=== PATIENT | male | born 1950 | race Caucasian/White ===

== ENCOUNTER → 2017-05-04 16:44 | Outpatient (CLI) | payer OTHER, SELFPAY ==
--- NOTE | 2017-05-04 16:48 | CT_ITS ---
STUDY: LOW DOSE CT LUNG CANCER SCREENING REASON FOR EXAM: Male, 67 years old. 30 pack-year smoking history. RADIATION DOSAGE (If Supplied By Facility): CTDIvol = ( 2.55 ) mGy, DLP = ( 91.56 ) mGycm TECHNIQUE: No contrast was administered. Low dose technique was utilized (average mAS-38 and kVp 120). 1.25 mm axial source images with a slice interval of 1.25-mm were reconstructed in lung windows. 2.5 mm axial source images with a slice interval of 2.5-mm were reconstructed in lung windows. 5.0 mm axial source images with a slice interval of 5.0-mm were reconstructed in soft tissue windows. Nodule measured using lung windows on PACS and/or independent workstation with automated measurement of minimum and maximum diameter. Nodule measurement reported as average diameter rounded to the nearest whole number. Growth is defined as an increase ins size of greater than 1.5 mm. COMPARISON: None. NODULES: Nodule #: 1 Density: Solid Lung location: Left upper lobe: 2.7 cm from pleura Location in series: Series Number: 1002 Image: 31 Size - D1 x D2 mm: 6 x 4 mm: 5 mm average diameter Margin: Spiculated Shape: Star shaped Calcification: No Fat: No Temporal comparison: None Nodule #: 2 Density: Solid Lung location: Right middle lobe: 0.9 cm from pleura Location in series: Series Number: [id number] Image: 154 Size - D1 x D2 mm: 4 x 3 mm: 4 mm average diameter Margin: Smooth Shape: Oval Calcification: No Fat: No Temporal comparison: None Total lung nodules (excluding granulomas): 2 Emphysema: There is diffuse emphysematous changes throughout the lungs. Endobronchial lesion: None Aorta: There is atherosclerotic changes of the thoracic aorta without aneurysm. Coronary arteries: There are coronary artery calcifications. Heart: The heart is normal in size. Pulmonary artery: Normal in size Mediastinal nodes: There is diffuse nonspecific subcentimeter mediastinal lymphadenopathy. Other chest and abdominal findings: There are degenerative changes of the thoracic spine. CT/Low Dose CT Lung Screening IMPRESSION: Lung-RADS category 3 - Continue screening with LDCT in 6 months. IMPORTANT NOTES FOR USE: ACR Lung-RADS Version 1.0 Assessment Categories Release Date: July 23, 2013 Category: Coded 0-4 bases on nodule(s) with highest degree of suspicion. Negative screen is defined as categories 1 and 2; a positive screen is defined as categories 3 and 4. Category 3 and 4A nodules that are unchanged on interval CT should be coded as category 2, and individuals returned to screening in 12 months. Category 4X: Category 3 or 4 nodules with additional imaging findings that increase the suspicion of lung cancer, such as spiculation, GGN that doubles in size in 1 year, enlarged lymph notes, etc. Category Modifiers: S (significant finding unrelated to lung cancer) and C (prior history of treated lung cancer) may be added to the 0-4 Lung-RADS Electronically Signed: Dez Knight DO at 17:36 EST Tel [phone], Service support ,
== END ==
PROVIDERS: Family Provider Family Medicine; PCP Family Medicine; Visit Provider Family Medicine
DX: Z12.2 Encounter for screening for malignant neoplasm of respiratory organs (principal)
CPT/HCPCS: G0297

== ENCOUNTER → 2017-08-27 09:57 | Outpatient (CLI) | payer OTHER, SELFPAY ==
[2017-08-27 11:29] LABS: AST(SGOT) 15 U/L (15-37); Alanine Aminotransfer ALT/SGPT 21 U/L (16-61); Albumin, Serum 3.6 g/dL (3.2-5.0); Alkaline Phosphatase 50 U/L (45-117); Bilirubin, Direct 0.15 mg/dL (0.00-0.30); Cholesterol 163 mg/dL (200); Globulin 3.7 g/dL (2.2-4.2); High Density Lipoprotein 69 mg/dL; Protein, Total 7.3 g/dL (6.4-8.2); Triglycerides 41 mg/dL; Very Low Density Lipoprotein 8 mg/dL (5-40)
== END ==
PROVIDERS: Family Provider Family Medicine; PCP Family Medicine; Visit Provider Internal Medicine Cardiovascular Disease
DX: E78.5 Hyperlipidemia, unspecified (principal)
CPT/HCPCS: 36415; 80061; 80076

== ENCOUNTER → 2017-10-31 14:53 | Outpatient (CLI) | payer OTHER, SELFPAY ==
[2017-10-31 16:12] LABS: Anion Gap 11 (5-15); BUN 14 mg/dL (7-18); BUN/Creat Ratio 14.9 RATIO (10-20); Calcium,Total 8.9 mg/dL (8.5-10.1); Chloride 103 mmol/L (98-107); Creatinine, Serum 0.94 mg/dL (0.70-1.30); EST Glomerular Filtration Rate 85 mL/min (>60); Est Glom Filt Rate - Afr Amer 103 mL/min (>60); Glucose 88 mg/dL (74-106); Potassium 3.9 mmol/L (3.5-5.1); Sodium Level 139 mmol/L (136-145)
== END ==
PROVIDERS: Family Provider Family Medicine; PCP Family Medicine; Visit Provider Family Medicine
DX: R91.1 Solitary pulmonary nodule (principal)
CPT/HCPCS: 36415; 80048

== ENCOUNTER → 2017-11-17 07:44 | Outpatient (CLI) | payer OTHER, SELFPAY | PROVIDERS: Family Provider Family Medicine; PCP Family Medicine; Visit Provider Family Medicine | DX: R91.1 Solitary pulmonary nodule (principal) | CPT/HCPCS: 71260; Q9967 ==

== ENCOUNTER → 2018-04-10 07:48 | Outpatient (CLI) | payer OTHER, SELFPAY ==
[2017-09-07 14:49] VITALS: BMI 25.6
[2018-04-10 09:59] LABS: AST(SGOT) 17 U/L (15-37); Alanine Aminotransfer ALT/SGPT 19 U/L (16-61); Albumin, Serum 3.6 g/dL (3.2-5.0); Alkaline Phosphatase 60 U/L (45-117); Bilirubin, Direct 0.12 mg/dL (0.00-0.30); Cholesterol 185 mg/dL (200); High Density Lipoprotein 56 mg/dL; Protein, Total 7.6 g/dL (6.4-8.2); Triglycerides 56 mg/dL; Very Low Density Lipoprotein 11 mg/dL (5-40)
== END ==
PROVIDERS: Family Provider Family Medicine; PCP Family Medicine; Referring Provider Internal Medicine Cardiovascular Disease; Visit Provider Internal Medicine Cardiovascular Disease
DX: E78.5 Hyperlipidemia, unspecified (principal)
CPT/HCPCS: 36415; 80061; 80076

== ENCOUNTER 2018-05-02 08:30 | Outpatient (RCR) | payer OTHER, SELFPAY ==
[2018-04-13 09:23] VITALS: BMI 26.0
--- NOTE | 2018-04-19 11:05 | HP.PTEVAL_ITS ---
Patient's Visit Information BESSIE CAMACHO is a 68 year old M referred to Physical Therapy by BUD Dubois with a diagnosis of LUMBAR RADICULOPATHY AND DDD. Date of Evaluation: 04/19/18 Physical Therapist: Elida Aranda PT, Cert MDT - Visit Plan Frequency: 2-3x /Week Duration: 2-4 Weeks Plan: US TO LOW BACK AND/OR HIP REGIONS. MANUAL THERAPY. POSTURE CORRECTION/STRENGTHENING, INSTRUCTION IN APPROPRIATE BODY MECHANICS AND ACTIVITY MODIFICATIONS. DLS STARTING WITH A NEUTRAL SPINE PROGRESSING ROM TOLERATED. ERA LE ROM, STRETCHING AND STRENGTHENING. HEP INSTRUCTION. PATIENT WAS SOMEWHAT RELUCTANT TO TRY PT BUT AGREED TO SCHEDULE SOME VISITS. 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 WAS WORKING ABOUT 50 HOURS A WEEK BUT STOPPED IN THE MIDDLE OF FEB 2018. TENTATIVE RETURN TO WORK DATE IS May 2017. Disability: NO. Present symptoms: LOW BACK AND ERA HIP PAIN. NO NUMBNESS OR TINGLING. Present since: February 2018. Pain Scale: WORST 6/10, LEAST 1/10. Currently: 10 - IMPROVING. Commenced as a result of: NO APPARENT REASON. Symptoms at onset: RIGHT HIPS. Worse: WALKING. Better: SITTING AND LYING DOWN. WALKING WITH PELVIS FORWARD. LEANING BACKWARDS IN SITTING. Disturbed sleep: NO. Previous history/Previous treatment: UNREMARKABLE. Coughing/sneezing/straining: POSITIVE. Gait: EASIER TO WALK WITH PELVIS FORWARD. DISTANCE LIMITED. Difficulty initiating urinatin: NO. Accidents: NO. Unexplained weight loss: NO. Imaging: RECENT LUMBAR X-RARYS [facility] -DEGENERATIVE DISCS. NO HIP X-RAYS THAT HE IS AWARE OF. PMH: COPD, AFIB, EMPHASEMA, HEART STENT. DONATED KIDNEY. NO PACEMAKER. HISTORY OF NECK PROBLEMS. PLOF (PRIOR LEVEL OF FUNCTION): UNLIMITED PER PATIENT REPORT. OTHER: PATIENT REPORTS THE [facility] TOLD HIM TO TRY PT FOR TWO WEEKS AND IF IT DOESN'T GET BETTER TO COME BACK BUT PATIENT REPORTS HE KNOWS HE WON'T - HE WILL JUST LIVE WITH IT. PATIENT REPORTS HE WAS WALKING AROUND FOR 5-10 MINUTES AT A [place] WITH A DIFFEERENT PAIR OF BOOTS AND RIGHT HIP PAIN STARTED. SAME THING AT [employer] A WEEK LATER WITH DIFFERENT SHOES AND SAME PROBLEM. WENT TO [employer] IN [place] - A LOT OF WALKING - HAD TO BE TAKEN OUT IN CART. THEN WENT TO A [facility] - SAME THING - HAD TO BE TAKEN OUT IN A CART. A FEW WEEKS AGO IN [place] GOT WORSE. HAD SOMEONE STAND ON BACK - NOT MUCH EFFECT. IN [place] TWO WEEKS AGO WAS THE WORST. LIMITED WALKING SINCE THEN SEEMS TO HAVE HELPED. TRYING TO SIT BETTER TOO. PATIENT REPORTS DR. STEVEN AND THE [facility] TOLD HIM HIS HIPS ARE FINE. ALSO TRIED GABAPENTIN WITH NE. LOWER BACK STARTED HURTING MORE RECENTLY. - Objective Sitting/Standing Posture: POOR. FORWARD HEAD AND ROUNDED SHOULDERS. Lordosis: REDUCED. Lateral shift: NO. Relevant shift: N/A. Active Correction of posture: BETTER. Other Observations: INDEP GAIT INTO PT WITHOUT ANY ASSISTIVE DEVICES OR LOSS OF BALANCE. INDEP TRANSFERS. Motor deficit: ERA LE'S 5/5 WITH MMT'ING. Sensory deficit: ERA LE LIGHT TOUCH SENSATION APPEARS INTACT AND SYMMETRICAL. FEET NT. ROM deficit: ERA LE'S WFL. Reflexes: UNABLE TO ELICIT ERA LE DTR'S. Dural Signs: NEGATIVE ERA LE'S. Lumbar mvmt loss: flex - NIL. ext - MOD. R SG - CARIDAD. L SG - CARIDAD. PATIENT C/O INCREASED RIGHT HIP PAIN WITH RIGHT SG TESTING. Core strength: POOR. Palpation: NO ACUTE TENDERNESS WITH PALPATION OF THE LUMBOSACRAL REGIONS OR PELVIC/BUTTOCK AREAS EXCEPT RIGHT GREATER TROCH REGION IS TENDER WITH DEEP PALPATION. PATIENT TOLERATED LUMBAR SUPPORT IN SITTING IN CLINIC FAIR TODAY. OTHER: DECREASE C/O PAIN WITH LUMBAR EXTENSION IN STANDING AND GRADE TWO LUMBAR EXTENSION MOBILIZATION. TREATMENT: US TO ERA LUMBAR REGION X 8 MIN AT 1.5 W/CM2 WITH PATIENT PRONE AND THER ACT (SEE BELOW). PATIENT REPORTED 0/10 PAIN UPON DEPARTURE. - Goals Goal 1:: DECREASE C/O LOW BACK AND ERA HIP PAIN Goal Time Frame: 2-4 Weeks Goal 2:: IMPROVE STANDING, WALKING, LIFTING, SOCIAL LIFE, TRAVEL AND EMPLOYMENT/HOMEMAKING FUNCTION. Goal Time Frame: 2-4 Weeks Goal 3:: INSTRUCT IN PROPHYLAXIS Goal Time Frame: 2-4 Weeks - Rehabilitation Potential Rehabilitation Potential: Fair - Anticipated Interventions Patient/Client Instruction: Educate patient on: Condition, Plan of Care, Risk Factors, Benefits of Fitness Program For the Purpose of:: To improve self management Therapeutic Exercise to Include: Strength training, Body mechanics, Postural training, Dynamic Lumbar Stabilization, Viri Exercises Comment: CONSIDER VIRI EX'S APPROPRIATE. For the Purpose of:: To decrease pain, To increase ROM, To improve muscle performance and motor function, To increase tolerance to activity/condition/position, To improve ability of physical actions for home/community/work/leisure Manual Therapy Techniques to Include: Mobilization For the Purpose of:: To decrease pain, To increase ROM Cryotherapy (ice pack, ice massage): Yes Thermo therapy (hot pack): Yes Ultrasound (thermal/non thermal): Yes For the Purpose of:: To decrease pain, To decrease swelling/inflammation, To increase ROM, To improve nutrient delivery to tissue Thank you for the opportunity to evaluate your patient. For Medicare and Medicare HMO plans, please review the plan of care and approve it. It will need to be FAXED BACK to us at [phone] for Medicare purposes. For Medicare only, by signing this I certify the plan of care. Please let me know if there are questions or concerns regarding this plan of care. Physician Signature: Date:
--- NOTE | 2018-06-20 13:44 | HP.PT.NRP ---
HP - Discharge Summary (1) - Patient Information BESSIE CAMACHO was seen in my office for initial evaluation on 04/19/18. The following Plan of Care was established for this patient: Initial Frequency: 2-3x /Week Initial Duration: 2-4 Weeks - Anticipated Interventions Patient/Client Instruction: Educate patient on: Condition, Plan of Care, Risk Factors, Benefits of Fitness Program For the Purpose of:: To improve self management Therapeutic Exercise to Include: Strength training, Body mechanics, Postural training, Dynamic Lumbar Stabilization, Jessica Exercises For the Purpose of:: To decrease pain, To increase ROM, To improve muscle performance and motor function, To increase tolerance to activity/condition/position, To improve ability of physical actions for home/community/work/leisure Manual Therapy Techniques to Include: Mobilization For the Purpose of:: To decrease pain, To increase ROM Cryotherapy (ice pack, ice massage): Yes Thermo therapy (hot pack): Yes Ultrasound (thermal/non thermal): Yes For the Purpose of:: To decrease pain, To decrease swelling/inflammation, To increase ROM, To improve nutrient delivery to tissue This patient was last seen in our office 05/02/18. Pertinent comments regarding their Physical therapy will appear below: This patient has not returned to Physical Therapy and is appropriate to return to MD for further follow-up as needed. At this point I will be discontinuing this patient from physical therapy. I would be happy to see this patient again in the future if found appropriate by the physician. Thank you! Eldia Aranda, PT, Cert MDT
--- OUTSIDE RECORDS SUMMARY | 2018-06-21 03:07 | XMS RPT_ITS ---
:1950 Author Organization OHIP Support Name Relationship Address Phone ADVDR Unavailable [address] + [place] [address] TOPOVSKI, AGUILAR Unavailable [address] + [place] [address] ADVDR Unavailable [address] [facility] + [place] [address] TOPOVSKI, AGUILAR Unavailable [address] + [place] [address] ADVDR Unavailable [address] [facility] + [place] [address] TOPOVSKI, AGUILAR Unavailable [address] + [place] [address] ADVDR Unavailable [address] + [place] [address] TOPOVSKI, AGUILAR Unavailable [address] + [place] [address] ADVDR Unavailable [address] [facility] + [place] [address] TOPOVSKI, AGUILAR Unavailable [address] + [place] [address] ADVDR Unavailable [address] + [place] [address] TOPOVSKI, AGUILAR Unavailable [address] + [place] [address] ADVDR Unavailable [address] + [place] [address] TOPOVSKI, AGUILAR Unavailable [address] + [place] [address] ADVDR Unavailable [address] [facility] + [place] [address] TOPOVSKI, AGUILAR Unavailable [address] + [place] [address] Un[address] [facility] + [place] [address] AGUILAR PADILLA Unavailable [address] + [place] [address] Care Team Providers Name Role Phone TracieCarmen faulknerl Attending Unavailable Tracie, Chu Referring Unavailable Raygoza, Oneil Primary Care Unavailable Pauly Veliz Attending Unavailable Pauly Veliz Referring Unavailable Raygoza, Oneil Primary Care Unavailable Raygoza, Oneil Attending Unavailable Raygoza, Oneil Referring Unavailable Raygoza, Oneil Primary Care Unavailable Sintia Nolan Attending Unavailable Tracie, Chu Attending Unavailable Tracie, Chu Referring Unavailable Raygoza, Oneil Primary Care Unavailable Tracie, Chu Attending Unavailable Raygoza, Oneil Referring Unavailable Oly Bond Attending Unavailable Raygoza, Oneil Referring Unavailable Raygoza, Oneil Primary Care Unavailable Raygoza, Oneil Attending Unavailable Raygoza, Oneil Primary Care Unavailable Raygoza, Oneil Attending Unavailable Raygoza, Oneil Referring Unavailable Raygoza, Oneil Primary Care Unavailable PROBLEMS PROBLEMS DATE TYPE CONDITION / CODE ATTENDING STATUS SOURCE Unknown I48.91 - Unspecified [place] Active [facility] atrial fibrillation / Community I48.91(ICD-10) Hospital Repository Unknown I10 - Essential (primary) [place], [place] Active [facility] hypertension / Community I10(ICD-10) Hospital Repository Unknown E78.00 - Pure [place], Chu Active [place] 9 hypercholesterolemia, Community unspecified / Hospital E78.00(ICD-10) Repository Unknown I25.10 - Atherosclerotic [place], [place] Active [facility] heart disease of [place] Community coronary artery without Hospital angina pectoris / Repository I25.10(ICD-10) Unknown R91.1 - Solitary RaygozaOneil herring Active [facility] pulmonary nodule / Community R91.1(ICD-10) Hospital Repository Unknown E78.0 - Pure Bond, Active [facility] hypercholesterolemia / Oly Ortega Community E78.0(ICD-10) Hospital Repository Unknown Z12.2 - Encounter for Oneil Raygoza Active [place] 8 screening for malignant Community neoplasm of respiratory Hospital organs / Z12.2(ICD-10) Repository PROCEDURES PROCEDURES No Procedure Records FoundRESULTS RESULTS CARDIOLOGY VISIT Observed: 2018 Status: F Source: [place] REPORT 9:48 AM [facility] REPOSITORY [facility] [address] [place] [address] OFFICE VISIT Date of Service: 04/13/18 MR#: [id number] Acct: [id number] Name: BESSIE CAMACHO Rep #: [id number] : 1950 Provider: Chu Hodges MD Age/Sex: 68/M Location: [facility] Status: Signed HPI HPI Chief Complaint: Follow up Details: BESSIE CAMACHO, is a 68 M who presents to the office today for a cardiovascular follow-up. He is a history of solitary kidney, coronary artery disease with angioplasty and stenting of his LAD in 2012, atrial fibrillation with an ablation 2014. From a cardiac standpoint, patient is doing well. He does not have any chest discomfort/heaviness/tightness. His exercise tolerance is stable for his age. He does not have any worsening symptoms of shortness of breath. He denies any PND. He does not have any orthopnea. He does not have any symptoms of congestive heart failure. He does not have any palpitations that he is aware of. He does not have any lightheadedness or dizziness. He does not have any near-syncope or syncope. He does not have any lower extremity edema. He does not have any symptoms of claudication. His physical exam today demonstrates clear lung cobian irregular regular heart rate and no pedal edema. Intake Vital Signs04/13/18 Height 6 ft 04/13/18 Weight: 192 lb 04/13/18 Body Mass Index (BMI) 26.0 04/13/18 Blood Pressure 108/58 L 04/13/18 Blood Pressure Location Lt brachial Intake Visit Reasons: 6 M Refractory Specialist Required: No Accompanied by: none Is patient in pain?: No Allergies Penicillins Allergy (Verified 04/13/18 09:23) Rash [place]-Uma-Qan Reductase Inhibitor Allergy (Verified 04/13/18 09:23) Unknown Medications Cinnamon 1 tab PO DAILY 10/21/14 [History Confirmed 04/13/18] Nitroglycerin [Nitrostat] 0.4 mg SUBLINGUAL Q5M PRN 10/21/14 [History Confirmed 04/13/18] turmeric root extract 500 mg capsule 500 mg PO QDAY 09/07/17 [History Confirmed 04/13/18] lisinopril 10 mg tablet 10 mg PO QDAY #90 tab 10/03/17 [Rx Confirmed 04/13/18] rivaroxaban 20 mg tablet 20 mg PO DAILY #90 tab 02/09/18 [Rx Confirmed 04/13/18] metoprolol succinate ER 50 mg tablet,extended release 24 hr 50 mg PO DAILY #90 tab 03/22/18 [Rx Confirmed 04/13/18] PFSH Medical History Essential (primary) hypertension (Chronic) Paroxysmal tachycardia (Chronic) HLD (hyperlipidemia) (Chronic) Atherosclerotic heart disease of [place] coronary artery without angina pectoris (Chronic) Surgical History History of nephrectomy (Resolved) Hx of arthroscopic knee surgery (Resolved) Presence of coronary angioplasty implant and graft (Chronic) Family History Father CAD (coronary artery disease) chf Diabetes Myocardial infarction Social History Smoking Status: Current every day smoker ROS Const Const: Negative for fatigue, weakness, night sweats, excessive sweating, frequent falls, headache(s) or daytime sleepiness Eyes Eyes: Negative for loss of peripheral vision, transient loss of vision, blind spots, double vision or blurry vision ENT ENT: Negative for headache(s), dizziness, balance problems, Nosebleed/epistaxis, tongue swelling or lip swelling Cardio Chest Pain: No Palpitations: No Edema: None Muscle aches with walking: None Resp Respiratory: Negative for SOB at rest, SOB orthopnea\SOB lying down, Cough, paroxysmal nocturnal dyspnea or SOB with activity GI GI: Negative nausea, vomiting, heartburn, black,tarry stools or bright, red blood in stools : Negative for hematuria Musc Musc: Negative for balance problems, muscle aches/ myalgia, muscle weakness or joint pain Skin Skin: Negative non-healing lesions, unusual bruising or rash Neuro Neuro: Negative for weakness, frequent falls, headache(s), double vision, dizziness, lightheadedness, orthostatic symptoms, blurry vision or lack of coordination Armando Hematologic/Lymphatic: Negative for easy bruising or easy bleeding Endo Endo: Negative for fatigue, excessive sweating, cold intolerance, heat intolerance, increased thirst/drinking or hair loss Psych Psych: Negative for anxiety or depression Allergy Allergy/Immunology: Negative for throat swelling, Negative for tongue swelling, Negative for hives, Negative for rash, Negative for lip swelling Cardiology Exam Const Appearance: cooperative, healthy appearing, well developed, well groomed and no acute distress Nutritional Appearance: well nourished and average body habitus Orientation: alert, awake and oriented x3 Head Head: normal to inspection, normocephalic and atraumatic Ears: hearing grossly normal bilaterally and external ears normal Nose: external nose normal, nasal mucous membranes and turbinates normal, nares normal, septum normal, no nasal discharge Face and Sinus: face symmetric Mouth: oral mucosae normal, tongue normal, oropharynx normal and moist mucous membranes Teeth and gingiva: dentition normal Throat: posterior oropharynx normal, tonsils normal and uvula midline Eyes General: appearance normal, both eyes and all related structures Eyelids: eyelids normal Conjunctivae: conjunctivae normal Pupils: PERRL, normal by confrontation and accommodation normal EOM: EOM intact bilaterally Neck Neck: normal visual inspection, trachea midline and no JVD JVD: +5 Carotids: normal carotid upstroke and bounding pulses Chest Chest inspection: normal inspection of the chest, symmetric chest movement and normal respiratory effort Auscultation: Bilateral: Clear to Auscultation Cardio Palpation: normal PMI Rhythm: irregular rhythm Heart sounds: S1 normal and S2 normal GI GI: normal to inspection, soft, no hepatosplenomegaly and bowel sounds present Neuro General: alert, awake, oriented x3, no focal sensory deficit, gait normal and moves all extremities Skin Skin: no rashes or lesions noted Extremities Pulses: Normal: Right Femoral Pulse, Left Femoral Pulse, Right Dorsalis Pedis Pulse, Left Dorsalis Pedis Pulse, Right Posterior Tibial Pulse, Left Posterior Tibial Pulse, Right Radial Pulse, Left Radial Pulse Lower Extremity Edema: None: Bilateral Musculoskel Musculoskeletal: No joint tenderness Psych Psychological: normal affect Assessment AND Plan 1. Atrial fibrillation I48.91 Plan He does have a history of atrial fibrillation which is unbeknownst to him the ventricular response rate remains controlled. He is on the rivaroxaban which be continued as well as the long-acting metoprolol. His last echocardiogram in 2014 demonstrated an ejection fraction of 55%. He previously had an ablation done. At this time he appears to be asymptomatic and I would not recommend that we make any changes. Orders Orders: 2. Essential (primary) hypertension I10 Plan He does have a history of hypertension which is well controlled on the current medical therapy and no recommendation about changes will be made at this particular time. 3. Pure hypercholesterolemia E78.00 Plan He has a history of hyperlipidemia and will continue to follow him closely regarding the above. 4. Atherosclerosis of [place] coronary artery of [place] heart without angina pectoris I25.10 Plan He has a history of atherosclerotic cardiovascular disease status post angioplasty and stenting of the left anterior descending artery in 2012. He is not had any recurrence of his last stress test in 2016 did not demonstrate any evidence of ischemia. Thank you for allowing me to participate in the care of your patient. Please don't hesitate to call if any issues arise Plan Detail Follow Up 6 Months (mmm) Coding Level of Care Code Off vis,est,level 4 Diagnoses Atrial fibrillation I48.91 Essential (primary) hypertension I10 Pure hypercholesterolemia E78.00 Hyperlipidemia type: pure hypercholesterolemia Atherosclerosis of [place] coronary artery of [place] heart without angina pectoris I25.10 [place] vs. transplanted heart: [place] heart Coding Level of Care Code Off vis,est,level 4 Diagnoses Atrial fibrillation I48.91 Essential (primary) hypertension I10 Pure hypercholesterolemia E78.00 Hyperlipidemia type: pure hypercholesterolemia Atherosclerosis of [place] coronary artery of [place] heart without angina pectoris I25.10 [place] vs. transplanted heart: [place] heart Supplemental Info Supplemental Information Labs LDL Cholesterol 86 mg/dL (0-130) 08/27/17 HDL Cholesterol 69 mg/dL (40-) 08/27/17 Triglycerides 41 mg/dL (-199) 08/27/17 VLDL Cholesterol 8 mg/dL (5-40) 08/27/17 Diagnostics Stress Test Nuclear Medicine 10/25/16 Chest X-Ray 04/21/17 04/13/18 0948 <Electronically signed by Chu Hodges MD> Date Chu Hodges MD Cosigner Signature: Date (if applicable) CC: Oneil Raygoza MD 12 LEAD EKG PERFORMED Observed: 2018 Status: F Source: [place] BY BMS 9:41 AM [facility] REPOSITORY [facility] [address] [place] [address] 12 Lead EKG performed by [facility] 1840 MR#: [id number] Acct: [id number] Name: BESSIE CAMACHO Rep #: [id number] : 1950 68 From: Chu Hodges MD Attending Dr: Chu Hodges MD Status: DEP AMB Ordering Dr: Chu Hodges MD Date: 04/13/18 Location: [facility] Sex: M C Admitted: [facility]/12 Lead EKG performed by [facility] ECG Report Interpretation Atrial fibrillation ABNORMAL RHYTHMElectronically signed on 04/18/2018 at 13:21 by Chu Hodges [employer] Version 8610 04/18/18 1324 Date Chu Hodges MD CC: Oneil Raygoza MD Date Dictated: 04/13/18939 Date Transcribed: 04/13/18939 Optical Design Engineer: CO Signed LIVER PROFILE Collected: 04/10/2018 Status: F Source: [place] 7:55 AM [facility] REPOSITORY TYPE CODE TESTS RESULT OUT OF RANGE REFERENCE UNITS LAB L501.1500 6.4-8.2 g/dL Normal T PROT 7.6 LAB L501.1800 3.2-5.0 g/dL Normal ALB 3.6 LAB L501.1950 2.2-4.2 g/dL Normal GLOB 4.0 LAB L501.4100 15-37 U/L Normal AST 17 LAB L501.4305 45-117 U/L Normal ALK P 60 LAB L501.4405 16-61 U/L Normal ALT 19 LAB L501.4600 0.20-1.00 mg/dL Normal T BILI 0.50 LAB L501.4700 0.00-0.30 mg/dL Normal D BILI 0.12 Performed By: #### L500.3400, L500.4100 #### [facility] [address] [facility] [place], [address] LIPID PROFILE Collected: 04/10/2018 Status: F Source: [place] 7:55 AM [facility] REPOSITORY TYPE CODE TESTS RESULT OUT OF RANGE REFERENCE UNITS LAB L501.4900 200 mg/dL Normal CHOL 185 Result Comment: <200 mg/dL Desirable 200-240 mg/dL Borderline >240 mg/dL High Risk LAB L501.5000 mg/dL Normal TRIG 56 Result Comment: The drugs N-Acetylcysteine and Metamizole may falsely depress this assay. Serum Triglycerides Reference Interval Normal <150 mg/dL Borderline high 150 - 199 mg/dL High 200 - 499 mg/dL Very High > or = 500 mg/dL LAB L501.6400 mg/dL Normal HDL 56 Result Comment: The drugs N-Acetylcysteine and Metamizole may falsely depress this assay. Reference Range HDL <40 mg/dL Low HDL Cholesterol HDL >or= 60 mg/dL High HDL Cholesterol LAB L501.6500 0-130 mg/dL Normal LDL 118 LAB L501.6600 5-40 mg/dL Normal VLDL 11 Performed By: #### L500.3400, L500.4100 #### [facility] [address] [facility] [place], [address] CHEST WITH CONTRAST Observed: 11/17/2017 Status: F Source: [place] 7:47 AM [facility] REPOSITORY [facility] Imaging Services [address] [place] [address] Chest WITH Contrast MR#: [id number] Acct: [id number] Name: BESSIE CAMACHO Rep #: [id number] : 1950 M 67 From: Santy Santos MD PCP: Oneil Raygoza MD Status: REG CLI Study: Chest WITH Contrast Date of Exam: 11/17/17 Exam# [id number] Ordering Dr: Oneil Raygoza MD STUDY: CT CHEST WITHOUT CONTRAST REASON FOR EXAM: Male, 67 years old. History of pulmonary nodules. RADIATION DOSAGE (If Supplied By Facility): CTDIvol = ( 13.4 ) mGy, DLP = ( 519.56 ) mGycm TECHNIQUE: Transaxial imaging was performed without the administration of intravenous contrast material. Multiplanar coronal and sagittal images were reformatted. Individualized dose optimization techniques were used for this CT. COMPARISON: Comparison is made with prior study dated May 04, 2017. FINDINGS: Hyperinflation and emphysematous changes. Stable 7.3 mm spiculated nodule in the left apex. Linear markings are seen extending from the nodule suggestive of scarring. Stable 4.9 mm noncalcified nodule in the anterior aspect of the right middle lobe as seen on axial image #70. There is no demonstrated pleural abnormality. There are calcifications of the coronary arteries. There are multiple small lymph nodes within the mediastinum, which are normal in size and morphology most compatible with reactive lymph hyperplasia. Normal hilar regions. Normal unenhanced pulmonary arteries. There is atherosclerotic calcification of the aortic arch with tortuosity and elongation of the aortic arch and descending thoracic aorta. There are degenerative changes of the thoracic spine. There is no demonstrated abnormality of the visualized upper abdomen. CT/Chest WITH Contrast IMPRESSION: Stable examination. A six-month follow-up CT scan of the thorax is recommended. Electronically Signed: Santy Santos MD at 8:31 EDT Tel [phone], Service support , CC: Oneil Raygoza MD Optical Design Engineer: Signed BASIC METABOLIC Collected: 10/31/2017 Status: F Source: [place] PROFILE (BMP) 2:54 PM [facility] REPOSITORY TYPE CODE TESTS RESULT OUT OF RANGE REFERENCE UNITS LAB L501.0100 74-106 mg/dL Normal GLU 88 Result Comment: Please note revised GLUCOSE reference range effective 2017. LAB L501.1000 7-18 mg/dL Normal BUN 14 LAB L501.1100 0.70-1.30 mg/dL Normal CREAT,SERUM 0.94 Result Comment: The validity of the calculated GFR AND GFRAA in patients over 70 years has not been determined. Clinical correlation is essential. LAB L501.1110 >60 mL/min Normal EST GFR 85 Result Comment: Non- GFR Calc LAB L501.1115 >60 mL/min Normal EST GFR - AA 103 Result Comment: GFR Calc LAB L501.1300 10-20 RATIO Normal BUN/CRE 14.9 LAB L501.2200 8.5-10.1 mg/dL CA Normal 8.9 LAB L501.5300 136-145 mmol/L NA Normal 139 LAB L501.5600 3.5-5.1 mmol/L K Normal 3.9 LAB L501.5900 98-107 mmol/L CL Normal 103 LAB L501.6100 21.0-32.0 mmol/L Normal CO2 25.0 LAB L501.6200 5-15 Normal GAP 11 Performed By: #### L500.2500 #### [facility] [address] [facility] [place], [address] CARDIOLOGY VISIT Observed: 09/09/2017 Status: F Source: [place] REPORT 1:05 PM [facility] REPOSITORY [facility] [address] [place] [address] OFFICE VISIT Date of Service: 09/07/17 MR#: [id number] Acct: [id number] Name: BESSIE CAMACHO Rep #: [id number] : 1950 Provider: Oly Bond Age/Sex: 67/M Location: [facility] Status: Signed HPI HPI Details: BESSIE CAMACHO, is a 67 M who presents to the office today for a cardiovascular follow-up. He is a history of solitary kidney, coronary artery disease with angioplasty and stenting of his LAD in 2012, atrial fibrillation with an ablation 2014. From a cardiac standpoint, patient is doing well. He does not have any chest discomfort/heaviness/tightness. His exercise tolerance is stable for his age. He does not have any worsening symptoms of shortness of breath. He denies any PND. He does not have any orthopnea. He does not have any symptoms of congestive heart failure. He does not have any palpitations that he is aware of. He does not have any lightheadedness or dizziness. He does not have any near-syncope or syncope. He does not have any lower extremity edema. He does not have any symptoms of claudication. Intake Vital Signs09/07/17 Height 6 ft 09/07/17 Weight: 189 lb 09/07/17 Body Mass Index (BMI) 25.6 09/07/17 Blood Pressure 110/65 Intake Visit Reasons: 6 M FU Refractory Specialist Required: No Is patient in pain?: No Allergies Penicillins Allergy (Verified 09/07/17 14:49) Rash Anwrqhr-Sns-Ftu Reductase Inhibitor Allergy (Verified 09/07/17 14:49) Unknown Medications Cinnamon 1 tab PO DAILY 10/21/14 [History Confirmed 09/07/17] Metoprolol(XL)Succ [Toprol Xl (Beta Pj)] 50 mg PO DAILY 10/21/14 [History Confirmed 09/07/17] Nitroglycerin [Nitrostat] 0.4 mg SUBLINGUAL Q5M PRN 10/21/14 [History Confirmed 09/07/17] Rivaroxaban [Xarelto] 20 mg PO DAILY 10/21/14 [History Confirmed 09/07/17] lisinopril 10 mg tablet PO 90 Days #90 09/07/17 [History Confirmed 09/07/17] turmeric root extract 500 mg capsule 500 mg PO QDAY 09/07/17 [History Confirmed 09/07/17] [facility] Medical History Essential (primary) hypertension (Chronic) Paroxysmal tachycardia (Chronic) HLD (hyperlipidemia) (Chronic) Atherosclerotic heart disease of [place] coronary artery without angina pectoris (Chronic) Surgical History History of nephrectomy (Resolved) Hx of arthroscopic knee surgery (Resolved) Presence of coronary angioplasty implant and graft (Chronic) Family History Father CAD (coronary artery disease) chf Diabetes Myocardial infarction Social History Smoking Status: Current every day smoker ROS Const Const: Negative for weakness, fatigue, fever(s) or headache(s) Eyes Eyes: Negative for blind spots, loss of peripheral vision or transient loss of vision ENT ENT: Negative for headache(s), dizziness, tinnitus or Nosebleed/epistaxis Cardio Chest Pain: No Palpitations: No Edema: None Muscle aches with walking: None Resp Respiratory: Negative for SOB with activity, SOB at rest, SOB orthopnea\SOB lying down or Cough GI GI: Negative nausea, vomiting, heartburn or vomiting blood/hematemesis : Negative for hematuria Musc Musc: Negative for muscle aches/ myalgia Neuro Neuro: Negative for weakness, headache(s), dizziness, near syncope, syncope, lightheadedness or orthostatic symptoms Armando Hematologic/Lymphatic: Negative for easy bleeding Endo Endo: Negative for fatigue Cardiology Exam Const Appearance: cooperative, no acute distress and well developed Orientation: alert, awake and oriented x3 Head Head: normocephalic and atraumatic Mouth: moist mucous membranes Eyes General: appearance normal, both eyes and all related structures Conjunctivae: conjunctivae normal Pupils: PERRL EOM: EOM intact bilaterally Neck Neck: normal visual inspection, no lymphadenopathy and no JVD Carotids: Negative bruit Neck Mass: Negative Neck mass Chest Chest inspection: normal inspection of the chest and symmetric chest movement Auscultation: Bilateral: Clear to Auscultation Cardio Palpation: normal PMI Rate: regular rate Rhythm: regular rhythm Heart sounds: S1 normal and S2 normal; negative rub, gallop or murmur GI GI: normal to inspection, soft, no hepatosplenomegaly and bowel sounds present; negative tender Neuro General: alert, awake, oriented x3, CN's II-XI intact bilaterally and moves all extremities Extremities Pulses: Normal: Right Posterior Tibial Pulse, Left Posterior Tibial Pulse, Right Radial Pulse, Left Radial Pulse Lower Extremity Edema: None: Bilateral Psych Psychological: normal affect Supplemental Info Stress test in 2017 was negative for ischemia at a moderate workload. Echocardiogram in 2015 demonstrates an ejection fraction of 55%. Lipomatous hypertrophy of the atrial septum. Assessment AND Plan 1. Atherosclerosis of [place] coronary artery of [place] heart without angina pectoris I25.10 Plan - BUD Junior Stable, from a cardiac standpoint patient does not have any symptoms of angina. We recommend that they continue with current aggressive medical management and risk factor modification. Orders Orders: 2. Essential hypertension I10 Plan - BUD Junior Blood pressure is well controlled on current medications, we do not recommend any changes at this time. 3. Pure hypercholesterolemia E78.00; E78.0 Plan - BUD Junior Recent lipid profile demonstrates total cholesterol 163, HDL 69, LDL 86. Will continue with current medical management. Orders Orders: 4. Paroxysmal atrial fibrillation I48.0 Plan - BUD Junior Patient will continue with his factor Xa inhibitor. He has not had any further symptomatic recurrence. He will also continue with his beta-pj. Plan Detail Additional Comments - BUD Junior The above patient was discussed with Dr. Hodges, he agrees with plan of care. Thank you for allowing us to participate in patient's plan of care, if you have any questions please do not hesitate to call. This note was generated using a voice recognition system and there may be incorrect words, spelling or punctuation errors that were not noted when reviewing the office note prior to saving. Follow Up 6 Months (MAINTENANCE GROUNDMAN) Coding Level of Care Code Off vis,est,level 3 Diagnoses Atherosclerosis of igiugig coronary artery of [place] heart without angina pectoris I25.10 [place] vs. transplanted heart: ig[place]ig heart Essential hypertension I10 Pure hypercholesterolemia E78.00; E78.0 Hyperlipidemia type: pure hypercholesterolemia Paroxysmal atrial fibrillation I48.0 Atrial fibrillation type: paroxysmal Coding Level of Care Code Off vis,est,level 3 Diagnoses Atherosclerosis of [place] coronary artery of [place] heart without angina pectoris I25.10 [place] vs. transplanted heart: [place] heart Essential hypertension I10 Pure hypercholesterolemia E78.00; E78.0 Hyperlipidemia type: pure hypercholesterolemia Paroxysmal atrial fibrillation I48.0 Atrial fibrillation type: paroxysmal 09/08/17 1553 <Electronically signed by Oly FARRELL> Date Oly FARRELL 09/09/17 1305<Electronically signed by Chu Hodges MD> Cosigner Signature: Date (if applicable) Chu Hodges MD CC: Oneil Raygoza MD LIVER PROFILE Collected: 08/27/2017 Status: F Source: MARGIE 10:27 AM [facility] REPOSITORY Order Comment: Order Date: 08/20/16 Order Info: 0788-1 - *Hepatic Function Panel Order Info: 04024-4 - *Lipid Profile CC PCP Comments: 12 hours fasting, may have water. TYPE CODE TESTS RESULT OUT OF RANGE REFERENCE UNITS LAB L501.1500 6.4-8.2 g/dL Normal T PROT 7.3 LAB L501.1800 3.2-5.0 g/dL Normal ALB 3.6 LAB L501.1950 2.2-4.2 g/dL Normal GLOB 3.7 LAB L501.4100 15-37 U/L Normal AST 15 LAB L501.4305 45-117 U/L Normal ALK P 50 LAB L501.4405 16-61 U/L Normal ALT 21 LAB L501.4600 0.20-1.00 mg/dL Normal T BILI 0.50 LAB L501.4700 0.00-0.30 mg/dL Normal D BILI 0.15 Performed By: #### L500.3400 #### [facility] [place], [address] LIPID PROFILE Collected: 08/27/2017 Status: F Source: MARGIE 10:27 AM [facility] REPOS[facility]ORY Order Comment: Order Date: 08/20/16 Order Info: 0788-1 - *Hepatic Function Panel Order Info: 81901-8 - *Lipid Profile CC PCP Comments: 12 hours fasting, may have water. TYPE CODE TESTS RESULT OUT OF RANGE REFERENCE UNITS LAB L501.4900 200 mg/dL Normal CHOL 163 Result Comment: <200 mg/dL Desirable 200-240 mg/dL Borderline >240 mg/dL High Risk LAB L501.5000 mg/dL Normal TRIG 41 Result Comment: The drugs N-Acetylcysteine and Metamizole may falsely depress this assay. Serum Triglycerides Reference Interval Normal <150 mg/dL Borderline high 150 - 199 mg/dL High 200 - 499 mg/dL Very High > or = 500 mg/dL LAB L501.6400 mg/dL Normal HDL 69 Result Comment: The drugs N-Acetylcysteine and Metamizole may falsely depress this assay. Reference Range HDL <40 mg/dL Low HDL Cholesterol HDL >or= 60 mg/dL High HDL Cholesterol LAB L501.6500 0-130 mg/dL Normal LDL 86 LAB L501.6600 5-40 mg/dL Normal VLDL 8 Performed By: #### L500.4100 #### [facility] [address] [place], [address] LUNG Observed: 05/04/2017 Status: F Source: COLWELL SCREENING 4:48 PM [facility] REPOSITORY [facility] Imaging Services [address] [place] [address] Lung Screening MR#: [id number] Acct: [id number] Name: BESSIE CAMACHO Rep #: [id number] : 1950 M 67 From: Dez Knight DO PCP: Oneil Raygoza MD Status: REG CLI Study: Low Dose CT Lung Screening Date of Exam: 05/04/17 Exam# [id number] Ordering Dr: Oneil Raygoza MD STUDY: LOW DOSE CT LUNG CANCER SCREENING REASON FOR EXAM: Male, 67 years old. 30 pack-year smoking history. RADIATION DOSAGE (If Supplied By Facility): CTDIvol = ( 2.55 ) mGy, DLP = ( 91.56 ) mGycm TECHNIQUE: No contrast was administered. Low dose technique was utilized (average mAS-38 and kVp 120). 1.25 mm axial source images with a slice interval of 1.25- mm were reconstructed in lung windows. 2.5 mm axial source images with a slice interval of 2.5-mm were reconstructed in lung windows. 5.0 mm axial source images with a slice interval of 5.0-mm were reconstructed in soft tissue windows. Nodule measured using lung windows on PACS and/or independent workstation with automated measurement of minimum and maximum diameter. Nodule measurement reported as average diameter rounded to the nearest whole number. Growth is defined as an increase ins size of greater than 1.5 mm. COMPARISON: None. NODULES: Nodule #: 1 Density: Solid Lung location: Left upper lobe: 2.7 cm from pleura Location in series: Series Number: 1002 Image: 31 Size - D1 x D2 mm: 6 x 4 mm: 5 mm average diameter Margin: Spiculated Shape: Star shaped Calcification: No Fat: No Temporal comparison: None Nodule #: 2 Density: Solid Lung location: Right middle lobe: 0.9 cm from pleura Location in series: Series Number: 1002 Image: 154 Size - D1 x D2 mm: 4 x 3 mm: 4 mm average diameter Margin: Smooth Shape: Oval Calcification: No Fat: No Temporal comparison: None Total lung nodules (excluding granulomas): 2 Emphysema: There is diffuse emphysematous changes throughout the lungs. Endobronchial lesion: None Aorta: There is atherosclerotic changes of the thoracic aorta without aneurysm. Coronary arteries: There are coronary artery calcifications. Heart: The heart is normal in size. Pulmonary artery: Normal in size Mediastinal nodes: There is diffuse nonspecific subcentimeter mediastinal lymphadenopathy. Other chest and abdominal findings: There are degenerative changes of the thoracic spine. CT/Low Dose CT Lung Screening IMPRESSION: Lung-RADS category 3 - Continue screening with LDCT in 6 months. IMPORTANT NOTES FOR USE: ACR Lung-RADS Version 1.0 Assessment Categories Release Date: July 23, 2013 Category: Coded 0-4 bases on nodule(s) with highest degree of suspicion. Negative screen is defined as categories 1 and 2; a positive screen is defined as categories 3 and 4. Category 3 and 4A nodules that are unchanged on interval CT should be coded as category 2, and individuals returned to screening in 12 months. Category 4X: Category 3 or 4 nodules with additional imaging findings that increase the suspicion of lung cancer, such as spiculation, GGN that doubles in size in 1 year, enlarged lymph notes, etc. Category Modifiers: S (significant finding unrelated to lung cancer) and C (prior history of treated lung cancer) may be added to the 0-4 Lung-RADS Electronically Signed: Dez Knight DO at 17:36 EST Tel [phone], Service support , CC: Oneil Raygoza MD Optical Design Engineer: Signed ALLERGIES ALLERGIES DATE TYPE / CODE NAME / CODE REACTION SEVERITY SOURCE 2018 Drug Penicillins/F001 Rash Unknown [facility]/416 480590(RXNORM) [facility] 547018(SNOM Repository ED CT) 2018 Drug Tphzdzw-Oiv-Hrl Unknown Unknown [facility]/416 [facility] 684412(SNOM Inhibitor/R44128 Repository ED CT) 0095(RXNORM) ENCOUNTERS ENCOUNTERS ADMIT/DISCHARGE ACCOUNT ADMITTING ENCOUNTER LOCATION SOURCE NUMBER CLASS 04/19/2018 [id number] Ambulatory [facility]ie [facility]der 6 [facility] ing:PT Repository 04/13/2018/ [id number] Ambulatory BMSBuilding:B [facility]der 9 7 [facility] Repository 04/10/2018 [id number] Ambulatory Ryder Ryder 7 [facility] ing:LAB Repository 11/17/2017 [id number] Ambulatory Ryder Ryder 2 [facility] ing:CT Repository 10/31/2017 [id number] Ambulatory Ryder Ryder 4 [facility] ing:MFPLAB Repository 09/07/2017/ [id number] Ambulatory BMSBuilding:B Ryder 8 7 [facility] Repository 08/27/2017 [id number] Ambulatory Margie Ryder 3 [facility] ing:LAB Repository 08/18/2017 [id number] Ambulatory BMSBuilding:B [facility]der 4 [facility] Repository 05/04/2017 [id number] Ambulatory Margie Margie 4 [facility] ing:CT Repository PAYERS PAYERS ENCOUNTER GUARANTOR PAYER SUBSCRIBER SOURCE 04/19/2018 BESSIE Briceño Primary BESSIE Hanson [id number] Insurance:Sergey [facility]: [facility] [place]: [id number] [id number] Repository [address]Wqr: 330) Date:9245-74-35VW [phone] () [id number], [place] [address]SC: 04/19/2018 Secondary NOT GIVENUNK Margie Insurance:SELF PAY [facility] Number: Effective Repository Date:2018 2018 BESSIE Briceño Primary BESSIE Hanson [id number] Insurance:CIGNAPolicy HAMILTONDOB: [facility] Number: [id number], [place] [id number] Repository [address]Oxu: (330) Date:2659-46-49MD [phone] (HP) [id number] OLVERA [address]YB: 2018 Secondary NOT GIVENUNK Margie Insurance:SELF PAY [facility] Number: Effective Repository Date:2018 04/10/2018 BESSIE L Primary BESSIE Hanson [id number] Insurance:CIGNAPolicy HAMILTONDOB: [facility] Number: [id number], [place] [id number] Repository [address]Mgz: (330) Date:5280-13-43YV [phone] (HP) [id number], [place] [address]OS: 04/10/2018 Secondary NOT GIVENUNK Margie Insurance:SELF PAY [facility] Number: Effective Repository Date:2018-04-10 11/17/2017 BESSIE L Primary BESSIE Hanson [id number] Insurance:CIGNAPolicy HAMILTONDOB: [facility] Number: [id number], [place] [id number] Repository [address]Pup: (330) Date:1454-48-40XR [phone] (HP) [id number], [place] [address]SR: 11/17/2017 Secondary NOT GIVENUNK Ryder Insurance:SELF PAY [facility] Number: Effective Repository Date:2017-11-08 10/31/2017 BESSIE L Primary BESSIE Hanson [id number] Insurance:CIGNAPolicy HAMILTONDOB: [facility] Number: [id number] [id number] Repository [place] [address]Jjy: Date:8679-74-29TQ [address]IBJERBTMWLM, [place] () [address]VE: 10/31/2017 Secondary NOT GIVENUNK Margie Insurance:SELF PAY [facility] Number: Effective Repository Date:2017-10-31 09/07/2017 BESSIE Briceño Primary BESSIE Hanson [id number] Insurance:CIGNAPolicy JANICEDOB: [facility] Number: [id number] [id number] Repository [place] [address]Fnp: Date:5174-29-24JT [address] [place] [place] () [address]YC: 09/07/2017 Secondary NOT GIVENUNK Ryder Insurance:SELF PAY [facility] Number: Effective Repository Date:2017-09-07 08/27/2017 BESSIE Briceño Primary BESSIE Hanson [id number] Insurance:CIGNAPolicy JANICEDOB: [facility] Number: [id number], [place] [id number] Repository [address]Lac: (330) Date:7159-77-28JB [phone] () 399219FZLTRSUELXX, [place] [address]RS: 08/27/2017 Secondary NOT GIVENUNK Margie Insurance:SELF PAY [facility] Number: Effective Repository Date:2017-08-27 08/18/2017 BESSIE Briceño Primary BESSIE Hanson [id number] Insurance:CIGNAPolicy JANICEDOB: [facility] Number: [id number], [place] [id number] Repository [address]Uuc: (330) Date:0511-89-01BP [address] () 298497XVRQMXWZZMR, [place] [address]GU: 08/18/2017 Secondary NOT GIVENUNK Margie Insurance:SELF PAY [facility] Number: Effective Repository Date:2017-08-18 05/04/2017 BESSIE Briceño Primary BESSIE Hanson [id number] Insurance:CIGNAPolicy JANICEDOB: [facility] Number: [id number], [place] [id number] Repository [address]Fas: (330) Date:6217-51-72MX [address] () [place] [address]QU: 05/04/2017 Secondary NOT GIVENUNK Margie Insurance[facility]SELF [facility]Y [facility]: Effective Repository Date:2017-04-27
== END 2018-05-02 19:00 | disposition home or self-care (01) ==
LOC: PT 08:30
PROVIDERS: Family Provider Family Medicine; PCP Family Medicine; Referring Provider Physician Assistant; Visit Provider Physician Assistant
DX: M54.16 Radiculopathy, lumbar region (principal); M51.36 Other intervertebral disc degeneration, lumbar region
CPT/HCPCS: 97035; 97162; 97530

== ENCOUNTER → 2018-05-18 08:36 | Outpatient (CLI) | payer OTHER, SELFPAY ==
[2018-04-13 09:23] VITALS: BMI 26.0
[2018-05-18 10:52] LABS: Anion Gap 11 (5-15); BUN 16 mg/dL (7-18); BUN/Creat Ratio 16.8 RATIO (10-20); Calcium,Total 8.7 mg/dL (8.5-10.1); Chloride 105 mmol/L (98-107); Creatinine, Serum 0.95 mg/dL (0.70-1.30); EST Glomerular Filtration Rate 84 mL/min (>60); Est Glom Filt Rate - Afr Amer 101 mL/min (>60); Glucose 87 mg/dL (74-106); Potassium 4.6 mmol/L (3.5-5.1); Sodium Level 137 mmol/L (136-145)
== END ==
PROVIDERS: Family Provider Family Medicine; PCP Family Medicine; Visit Provider Family Medicine
DX: R91.1 Solitary pulmonary nodule (principal)
CPT/HCPCS: 36415; 80048

== ENCOUNTER → 2018-05-23 12:56 | Outpatient (CLI) | payer OTHER, SELFPAY ==
[2018-04-13 09:23] VITALS: BMI 26.0
--- NOTE | 2018-05-23 13:02 | CT_ITS ---
HISTORY: 6 MONTH LUNG NODULE FOLLOW UP, HX SKIN CA TECHNIQUE: Helically acquired images were obtained of the chest following IV contrast. A radiation dose optimization technique was used for this scan. IV Contrast dosage and agent: 100 cc [id number] COMPARISON: 05/04/17 and 11/17/17 CT chest. FINDINGS: # of images incl. paperwork: [id number] Unchanged 7 mm left apical nodule, with spiculations extending to the apex. Unchanged oval 5 mm nodule right middle lobe. Moderate emphysema and mild central bronchial wall thickening similar to previous. No evidence of acute pneumonia or pulmonary edema. Small right adrenal nodule of low density compatible with an adenoma, larger 2.6 cm diameter left adrenal nodule, indeterminate density, unchanged. No acute finding in the partially visible upper abdomen. Nonpathologic paratracheal and subcarinal lymph nodes unchanged. Heart size normal. Coronary artery atherosclerosis with probable LAD stent, unchanged. CT/Chest WITH Contrast IMPRESSION: Unchanged left apical and right middle lobe pulmonary nodules. Per Fleischner criteria, 12 month follow-up suggested. Moderate emphysema. Coronary artery atherosclerosis. Individualized dose optimization techniques were used for this CT. at 2256 Reported and signed by: Chance Lopes MD Electronically Signed: Chance Lopes, at 22:54 EST Tel , Service support ,
== END ==
PROVIDERS: Family Provider Family Medicine; PCP Family Medicine; Referring Provider Family Medicine; Visit Provider Family Medicine
DX: R91.1 Solitary pulmonary nodule (principal)
CPT/HCPCS: 71260; Q9967

== ENCOUNTER → 2018-09-29 | Outpatient (CLI) | payer OTHER, SELFPAY ==
[2018-09-26 11:26] VITALS: BMI 25.7
--- NOTE | 2018-09-29 15:06 | STRESSREP_ITS ---
Stress Test Report Pharmacologic myocardial perfusion stress test. 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 Stress protocol: Resting EKG demonstrates atrial fibrillation with a rate of 80 bpm resting blood pressure is 140/90 mmHg. 0.4 mg of regadenoson was infused per usual protocol followed by rapid intravenous and flush injection continuous EKG monitoring was performed. Patient maintained atrial fibrillation throughout the recording. At rest there were no ST or T wave changes noted suggest abnormal flow reserve a pe ak infusion nonspecific ST-T wave changes were noted. The maximum heart rate was 106 bpm which was 69% of maximum predicted heart rate and maximum workload was 1 metabolic equivalent. The resting blood pressure 140/98 with a final blood pressure 128/98 mmHg. No clinical angina was noted. Myocardial perfusion protocol. 12.9 mCi of technetium 99m sestamibi was injected at rest. 0.4 mg of regade noson was infused per usual protocol. The peak infusion 34.2 mCi of technetium 99m sestamibi was injected stress images were obtained stress and rest images were reconstructed in comparing the short axis vertical and horizontal long axis. Gated images were also obtained Perfusion SPECT analysis: Review of the stress images demonstrate normal uptake of tracer noted in all areas of myocardium. Rest images similarly demonstrate normal uptake of tracer noted in all the rest myocardium. No areas of reversibility no suggest ischemia no previous infarct is noted. Gated SPECT analysis: The gated ejection fraction is noted to be 63%. Conclusion: Normal pharmacologic myocardial perfusion stress test. Atrial fibrillation persistent. Preserved ejection fraction.
== END | disposition home or self-care (01) ==
PROVIDERS: Family Provider Family Medicine; PCP Family Medicine; Referring Provider Internal Medicine Cardiovascular Disease; Visit Provider Internal Medicine Cardiovascular Disease
DX: I48.1 Persistent atrial fibrillation (principal); I25.10 Atherosclerotic heart disease of native coronary artery without angina pectoris
CPT/HCPCS: 78452; 93017; A9500; A4216; J2785

== ENCOUNTER → 2018-10-03 | Outpatient (CLI) | payer OTHER, SELFPAY ==
[2018-09-26 11:26] VITALS: BMI 25.7
--- NOTE | 2018-10-03 13:33 | ECHOD_ITS ---
Reason For Study: AFIB Procedure This was a 2D Doppler, Color Flow transthoracic echocardiogram. Exam performed in department. Left Ventricle Normal LV size. The estimated ejection fraction is 50 %. Unable to assess diastolic dysfunction due to arrhythmia. No regional wall motion abnormalities noted. Right Ventricle Normal RV size. Normal systolic function. Atria The left atrium is mildly enlarged. Normal right atrium. Mitral Valve Normal mitral valve. Tricuspid Valve Normal tricuspid valve. Mild tricuspid valve insufficiency. Aortic Valve Normal aortic valve. Trisinus/trileaflet aortic valve. Pulmonic Valve Normal pulmonic valve. Great Vessels Normal aortic root. The pulmonary artery is normal size. Pericardium/Pleural No pericardial effusion. MMode/2D Measurements & Calculations LVIDd: 5.2 cm IVSd: 0.86 cm Ao root diam: 3.6 cm LVIDs: 3.7 cm LVPWd: 0.95 cm RVDd: 3.3 cm FS: 29.0 % LAV(MOD-bp): 65.2 ml LA A4 area: 21.5 cm2 LA dimension(2D): 3.5 cm LAV(MOD-bp) Indexed: 31.3 ml/m2 LAV(MOD-sp2): 59.6 ml LAV(MOD-sp4): 65.3 ml RA A4 area: 18.5 cm2 Time Measurements MV dec time: 0.28 sec Doppler Measurements & Calculations MV E max alfred: 56.4 cm/sec Lat Peak E' Alfred: 9.4 cm/sec Med Peak E' Alfred: 5.4 cm/sec MV A max alfred: 47.3 cm/sec E/E' lat: 6.0 E/E' med: 10.4 MV E/A: 1.2 Ao V2 max: 95.2 cm/sec LV V1 max: 69.0 cm/sec PA V2 max: 82.6 cm/sec Ao max P.7 mmHg LV V1 max P.9 mmHg TR max alfred: 210.7 cm/sec TR max P.8 mmHg Interpretation Summary Normal LV size. The estimated ejection fraction is 50 %. Unable to assess diastolic dysfunction due to arrhythmia. The left atrium is mildly enlarged. Mild tricuspid valve insufficiency. Ordering Physician: Chu Hodges Referring Physician: MARSHALL STEVEN Performed By: Padmini Lerner, HOLLIE, RVT
== END | disposition home or self-care (01) ==
LOC: CVS 13:32
PROVIDERS: Family Provider Family Medicine; PCP Family Medicine; Referring Provider Internal Medicine Cardiovascular Disease; Visit Provider Internal Medicine Cardiovascular Disease
DX: I48.1 Persistent atrial fibrillation (principal)
CPT/HCPCS: 93306

== ENCOUNTER → 2019-04-26 08:59 | Outpatient (CLI) | payer BC, SELFPAY ==
[2018-09-26 11:26] VITALS: BMI 25.7
[2019-04-26 11:08] LABS: Anion Gap 7 (5-15); BUN 14 mg/dL (7-18); BUN/Creat Ratio 15.4 RATIO (10-20); Chloride 104 mmol/L (98-107); Creatinine, Serum 0.91 mg/dL (0.70-1.30); EST Glomerular Filtration Rate 88 mL/min (>60); Est Glom Filt Rate - Afr Amer 106 mL/min (>60); Glucose 97 mg/dL (74-106); Potassium 4.5 mmol/L (3.5-5.1); Sodium Level 134 mmol/L (136-145)
== END ==
LOC: MTLAB 09:02
PROVIDERS: PCP Family Medicine; Referring Provider Family Medicine; Visit Provider Family Medicine
DX: R91.1 Solitary pulmonary nodule (principal)
CPT/HCPCS: 36415; 80048

== ENCOUNTER → 2019-05-02 09:00 | Outpatient (CLI) | payer BC, SELFPAY ==
[2018-09-26 11:26] VITALS: BMI 25.7
== END ==
PROVIDERS: PCP Family Medicine; Referring Provider Family Medicine; Visit Provider Family Medicine
DX: L98.9 Disorder of the skin and subcutaneous tissue, unspecified (principal)

== ENCOUNTER → 2019-05-04 13:12 | Outpatient (CLI) | payer BC, SELFPAY ==
[2018-09-26 11:26] VITALS: BMI 25.7
--- NOTE | 2019-05-04 09:00 | LES_PTH ---
PATIENT: BESSIE CAMACHO LOC: CT U#:[id number] AGE/SX: 74/M ROOM: RE05/04/[address]: Dr. Oneil Raygoza MD : 1950 BED: DIS: SPEC #: [id number] RECD: 05/04/19 12:22 STATUS: JONAS JONESLobito #: [id number] JODY: 05/04/19 09:[address]: Oneil Raygoza DEPT: SURGICAL PATHOLOGY RECD BY: Michael Prieto Tissues: Skin of chest Procedures: Surgery Specimen Level IV HEADER OPERATION: Shave biopsy PRE-OP DIAGNOSIS: Suspicious skin lesion TISSUE SUBMITTED: Left chest skin lesion MICROSCOPIC DIAGNOSIS Skin lesion of left chest, shave biopsy: Actinic keratosis, hyperkeratotic type. See comment. AM:trang 05/07/19 COMMENT Bacterial colonies are identified within the hyperkeratotic skin. MICROSCOPIC DESCRIPTION Slides are reviewed. GROSS DESCRIPTION Received in fixative is one container labeled with the patient's name and designated left chest skin tag. The specimen consists of a raisinoid fragment of franks tissue measuring 1.2 x 1 x 0.3 cm. The specimen is bisected and totally submitted in one cassette. / AM:trang 05/04/19 TC:5 CPT: 48416
--- NOTE | 2019-05-04 13:17 | CT_ITS ---
STUDY: CT CHEST WITH CONTRAST REASON FOR EXAM: Male, 69 years old. PULMONARY NODULE F/U RADIATION DOSAGE (If Supplied By Facility): CTDIvol = ( 15.86 ) mGy, DLP = ( 627.13 ) mGycm TECHNIQUE: Transaxial imaging was performed following intravenous administration of IV 100mL Isovue-370. Multiplanar coronal and sagittal images were reformatted. Individualized dose optimization techniques were used for this CT. COMPARISON: 05/23/2018, 11/17/2017, 05/04/2017 FINDINGS: Hyperinflation with emphysematous blebs predominantly in the upper lung zones similar since the prior study. 7 mm reticulonodular density in the left apex on image 13 is stable when compared to the prior study. 5 mm nodule in the right middle lobe on image 77 is also unchanged. There is no demonstrated pleural abnormality. Normal heart and pericardium. There are calcifications of the coronary arteries. Normal mediastinum. Normal hilar regions. Normal enhanced pulmonary arteries. There is atherosclerotic calcification of the aortic arch with tortuosity and elongation of the aortic arch and descending thoracic aorta. There are multi-level degenerative changes of the thoracic spine. There is an old left clavicle fracture. Left kidney is surgically absent. Nodular thickening of the left adrenal gland is stable. CT/Chest WITH Contrast IMPRESSION: 1. Since 05/23/2018, stable exam. Left upper and right middle lobe nodules are unchanged. No new or enlarging pulmonary nodule. Of note these nodules have been stable since 05/04/2017. Given 2 years of stability, nodules are considered benign. Recommend annual low-dose CT screening, if clinically appropriate and patient meets guidelines. Electronically Signed: Zeyad Cooley MD (Brooks) at 14:53 EST , Service support ,
== END ==
PROVIDERS: PCP Family Medicine; Referring Provider Family Medicine; Visit Provider Family Medicine
DX: R91.1 Solitary pulmonary nodule (principal)
CPT/HCPCS: 71260; 88305; Q9967

== ENCOUNTER → 2019-05-07 07:47 | Outpatient (CLI) | payer BC, SELFPAY ==
[2018-09-26 11:26] VITALS: BMI 25.7
[2019-05-07 09:09] LABS: AST(SGOT) 14 U/L (15-37); Alanine Aminotransfer ALT/SGPT 22 U/L (16-61); Albumin, Serum 3.5 g/dL (3.2-5.0); Alkaline Phosphatase 48 U/L (45-117); Bilirubin, Direct 0.14 mg/dL (0.00-0.30); Cholesterol 181 mg/dL (200); Globulin 3.8 g/dL (2.2-4.2); High Density Lipoprotein 71 mg/dL; Protein, Total 7.3 g/dL (6.4-8.2); Triglycerides 45 mg/dL; Very Low Density Lipoprotein 9 mg/dL (5-40)
== END ==
PROVIDERS: PCP Family Medicine; Referring Provider Physician Assistant Medical; Visit Provider Physician Assistant Medical
DX: E78.5 Hyperlipidemia, unspecified (principal)
CPT/HCPCS: 36415; 80061; 80076

== ENCOUNTER 2020-03-25 08:44 | Day surgery (SDC) | payer MEDICARE, OTHER, SELFPAY ==
[2020-03-10 12:02] VITALS: BMI 23.8
[2020-03-25] MEDS: Lactated Ringers 1,000 ML 100 ML IV (09:09)
[2020-03-25 09:12] VITALS: BP 102/61; PULSE 61; RESP 16; TEMP 36.1; O2SAT 98; BMI 23.3
--- NOTE | 2020-03-25 09:21 | HP.PCM_ITS ---
Problem List (1) Constipation Status: Acute Qualifiers: History of Present Illness Date of Admission: 03/25/20 The patient is a 69 year old M who presents for a colonoscopy to help evaluate severe constipation. Intake Visit Reasons: PHONE VISIT/ Constipation Chief Complaint: constipation Digital Sales Assistant Required: No Is patient in pain?: No Allergies Penicillins Allergy (Verified 03/10/20 12:14) Rash Vqeffbg-Sgz-Aze Reductase Inhibitor Allergy (Verified 03/10/20 12:14) Unknown Medications Cinnamon 1 tab PO DAILY 10/21/14 [History Confirmed 01/31/20] Nitroglycerin (INPATIENT USE) [Nitrostat] 0.4 mg SUBLINGUAL Q5M PRN 10/21/14 [History Confirmed 01/31/20] turmeric root extract 500 mg capsule 500 mg PO QDAY 09/07/17 [History Confirmed 03/10/20] metoprolol succinate 50 mg tablet,extended release 24 hr 50 mg PO DAILY #90 tab 05/10/19 [Rx Confirmed 03/10/20] aspirin 81 mg tablet,delayed release 81 mg PO DAILY 03/10/20 [History Confirmed 03/10/20] sildenafil 100 mg tablet 100 mg PO DAILY PRN 03/10/20 [History Confirmed 03/10/20] PFSH Medical History Atherosclerotic heart disease of [place] coronary artery without angina pectoris (Chronic) Persistent atrial fibrillation (Chronic) Typical atrial flutter (Resolved) Essential (primary) hypertension (Chronic) HLD (hyperlipidemia) (Chronic) Nicotine dependence (Chronic) Paroxysmal tachycardia (Inactive) Surgical History History of coronary artery stent placement (Resolved 11/02/12) History of left heart catheterization (Resolved 01/19/13) History of nephrectomy (Resolved) History of radiofrequency ablation procedure for cardiac arrhythmia (Resolved 01/08/15) Hx of arthroscopic knee surgery (Resolved) Family History Father CAD (coronary artery disease) chf Diabetes Myocardial infarction Social History (Updated 03/10/20 @ 12:[address] Charlie Wilcox MD) alcohol intake: former year quit: 12/15 HPI HPI Chief Complaint: constipation Details: Patient was informed that this visit will be billed to patient. This visit was conducted during ID- pandemic. BESSIE CAMACHO, is a 69 M who was contacted on the telephone today. I was in the office and he was at home. He is being referred by his primary care physician Dr. Oneil Raygoza for severe constipation and a written copy my surgical consult and recommendations will be returned to Dr. Raygoza. The patient states that he used to be a heavy drinker. He then stopped drinking alcohol and suddenly he stopped having bowel movements. He states that he would go a week without moving his bowels. He tried taking some bowel prep medication and that would work but then he would go another week. He did that several times in a row. He has now settled on a program of taking MiraLAX mixed with magnesium citrate in order to move his bowels. He denies bright red blood per rectum or melena. No abdominal pain. He has had no unexpected weight loss. He does not note any bright red blood per rectum or melena. He denies fever or chills or sweats or cough or chest pain. He states that he is quite active. He states that he has had previous attempted cardiac ablation because of A. fib. He states that that has not been completely effective. He had a remote colonoscopy June 24, 2000. Hemorrhoids were noted no acute findings. His most recent colonoscopy was November 06, 2010. That was also done for screening. He had diverticulosis of the descending colon and a tortuous colon. Nonbleeding hemorrhoids. No acute findings. He states that the last time they tried to do his cardiac ablation that he took much more sedative medicine than typical ROS Const Constitutional: Positive for weight change; no anorexia, body ache, chills, excessive sweating, fatigue, fever(s), frequent falls, headache(s), decreased energy, malaise, night sweats, snoring, weakness, sleep problems, abnormal sleep pattern, change in appetite or other Eyes Eyes: No blurry vision, change in vision, double vision, discharge, dry eyes, bulging eyes, floaters, visual disturbances, eye pain, light sensitivity, spots in vision, tunnel vision or other ENT ENT: Positive for neck pain; no abnormal hearing, ear pain, ear discharge, ear pressure, hearing loss, tinnitus, dizziness/vertigo, balance problems, nosebleed/epistaxis, nasal congestion, nasal obstruction, nose pain, sinus pressure, sinus pain, nasal discharge, post nasal drip, headache(s), facial pain, dental pain, dry mouth, difficulty swallowing, bad breath, hoarseness, lip swelling, mouth lesions, mouth pain, sore throat, tongue swelling, throat swelling or other Resp Respiratory: No cough, change in phlegm color, chest congestion, excessive phlegm production, hemoptysis, pain on inspiration, shortness of breath, pain with cough, snoring, stridor, wheezing or other Cardio Cardiology: No chest pain at rest, chest pain with exertion, leg pain with exertion, excessive sweating, shortness of breath, dyspnea on exertion, generalized swelling, irregular heart rhythm, lightheadedness, orthopnea, radiating jaw, neck or arm pain, fast heart rate, slow heart rate, palpitations or other Gastro GI: Positive for change in bowel habits and constipation; no abdominal pain, belching, bloating, change in stool character, coffee ground emesis, cramping, diarrhea, heartburn, difficulty swallowing, feeling full early, excessive flatus, incontinent of stools, Vomiting blood/hematemesis, blood in stool, loose stools, Black,tarry stools, nausea/dyspepsia, pain with swallowing, vomiting or other Genitourinary Male: No difficulty urinating, burning urination, painful urination, urinary incontinence, urinary frequency, urinary urgency, urinary hesitancy, urinary retention, blood in urine, Frequent nighttime urination/ nocturia, post void dribbling, suprapubic fullness, side pain, sexual problems, genital lesions, genital itching, erectile dysfunction, penile discharge, difficulty with ejaculations, blood in semen, scrotal swelling, testicle lump, testicle pain or other Musc Musculoskeletal: Positive for neck pain; no abnormal walking, joint pain, back pain, deformity, joint swelling, limited range of motion, loss of height, muscle cramps, muscle weakness, decreased muscle mass, body aches, numbness, radiating pain into limb, stiffness, tingling or other Skin Skin: No acne, hair loss, change in hair, nail changes, boil, change in skin color, dry skin, redness, excessive hair growth, yellowing of the skin, lesions, itching, rash, skin pain, skin ulcer, sores, skin swelling, wounds or other Breast Breast: No change in breast shape, breast lump, breast pain, breast skin changes, breast swelling, nipple discharge or other Neuro Neurology: No abnormal walking, abnormal hearing, abnormal movements, abnormal speech, behavioral changes, confusion, unsteady gait/balance, dizziness, weakness, frequent falls, headache(s), lack of coordination, loss of vision, memory loss, numbness, tingling, visual disturbances, restless legs, fainting, tremor(s) or other Psych Psychiatric: No abnormal sleep pattern, No lack of enjoyment, No anxiety, No behavioral changes, No change in appetite, No confusion, No depression, No difficulty concentrating, No hopelessness, No irritability, No memory loss, No mood swings, No panic attacks, No paranoia, No Thoughts of harming yourself/Others, No hallucinations, No other Endo Endocrine: No change in body appearance, cold intolerance, excessive sweating, fatigue, flushing, heat intolerance, increased thirst/drinking, increased hunge r, increased urination or other Aller/Imm Allergy/Immunologic: No food intolerance, itchy eyes, lip swelling, seasonal allergy symptoms, throat swelling, tongue swelling, hives, wheezing or other Armando/Lymp Hematologic/Lymphatic: Positive for easy bleeding; no easy bruising, enlarged lymph nodes or other Exam Const General: other Other: The patient appeared to be alert speaking easily on the phone. He did not demonstrate any shortness or breath or distress Musc Musculoskeletal: No muscle weakness Details: Details:: Exam was limited due to phone visit with no video. Quality Reporting Medication Reconciliation ([facility] 68) aspirin 81 mg PO DAILY [Cinnamon 1 tab PO DAILY] metoprolol succinate ER 50 mg PO DAILY nitroglycerin 0.4 mg sublingual Q5M PRN sildenafil (Viagra) 100 mg PO DAILY PRN turmeric root extract 500 mg PO QDAY Assessment & Plan Problems 1. Constipation, unspecified constipation type K59.00 Plan Acute onset of severe constipation. Etiology not determined. I recommend the patient a colonoscopy with possible biopsy or polypectomy as indicated. He is aware of the technique, benefit, risk and alternatives. He has had an opportunity to ask and have questions answered. We will schedule and expedite his care. We will utilize a 2-day bowel prep of clear liquids and laxative. Because of his atrial fibrillation and history of excessive alcohol intake we will utilize monitored anesthesia care. In the short-term I recommend to him that he consider taking a fiber supplementation mixed with his MiraLAX therapy. I have concerns about his taking magnesium citrate over a prolonged period of time and have discouraged that. He acknowledges an understanding and will initiate fiber supplementation as well. I appreciate the opportunity of assisting in the surgical care Copy: Dr. Oneil Wilcox M.D., F.A.C.S. Coding Level of Care Code Level 2 Telephone Diagnoses Constipation, unspecified constipation type K59.00 ??Constipation type: unspecified constipation type Past Medical History Past Medical History (Chronic Problems): Chronic Problems (Last Reviewed 03/10/20 @ 12:14 by Dary Land) Atherosclerotic heart disease of [place] coronary artery without angina pectoris (Chronic) Persistent atrial fibrillation (Chronic) Essential (primary) hypertension (Chronic) HLD (hyperlipidemia) (Chronic) Nicotine dependence (Chronic) Medical History: Medical History (Last Reviewed 03/10/20 @ 12:14 by Dary Land) Constipation (Acute) K59.00 Atherosclerotic heart disease of [place] coronary artery without angina pectoris (Chronic) I25.10 Persistent atrial fibrillation (Chronic) I48.1 Typical atrial flutter (Resolved) I48.3 RFA 12/2014 Essential (primary) hypertension (Chronic) I10 HLD (hyperlipidemia) (Chronic) E78.5 Nicotine dependence (Chronic) F17.200 Paroxysmal tachycardia (Inactive) I47.9 Allergies Penicillins Allergy (Verified 03/25/20 08:57) Rash Mubwkhk-Yql-Rvj Reductase Inhibitor Allergy (Verified 03/25/20 08:57) Unknown Home Medications: Ambulatory Orders Medication Instructions Recorded Cinnamon 1 tab PO DAILY 10/21/14 Nitroglycerin (INPATIENT USE) 0.4 mg SUBLINGUAL Q5M PRN 10/21/14 [Nitrostat] turmeric root extract 500 mg 500 mg PO QDAY 09/07/17 capsule metoprolol succinate 50 mg 50 mg PO DAILY #90 tab 05/10/19 tablet,extended release 24 hr aspirin 81 mg tablet,delayed 81 mg PO DAILY 03/10/20 release Amlodipine [Norvasc] 10 mg PO DAILY 03/17/20 Surgical History: Surgical History (Last Reviewed 03/10/20 @ 12:14 by Dary Land) History of coronary artery stent placement (Resolved) Onset Date: 11/02/12 Z95.5 PCI-REE-Mid LAD w/a 3.5 x 16 mm Promus Element Stent 11/02/12 History of left heart catheterization Onset Date: 01/19/13 Z98.890 History of nephrectomy Z90.5 History of radiofrequency ablation procedure for cardiac arrhythmia Onset Date: 01/08/15 Z98.890 Hx of arthroscopic knee surgery Z98.890 Smoking Status: Current some day smoker Review of Systems Constitutional: Denies: Fever HEENT: Reports: Difficulty Hearing Cardiovascular: Denies: Chest Pressure Respiratory: Denies: Shortness of Breath Gastrointestinal: Reports: Constipation. Denies: Abdominal Pain VTE Information - Inpt Only VTE Present on Admission: No Patient Problems: Active and Suspected Problems (Last Reviewed 03/10/20 @ 12:14 by Dary Land) Constipation (Acute) - Physical Exam Vitals/I&O's: Vital Signs Temp Pulse Resp BP Pulse Ox 97.0 F L 61 16 102/61 98 03/25/20 09:12 03/25/20 09:12 03/25/20 09:12 03/25/20 09:12 03/25/20 09:12 Oxygen Delivery Method Room Air Weight: 171 lb 11.841 oz Body Mass Index (BMI) 23.3 General: Alert HEENT: Atraumatic Lungs: Clear to auscultation, Normal air movement Cardiovascular: Regular rate, Regular Rhythm Abdomen: Soft, Non Tender Extremities: No Calf Tenderness Psych/Mental Status: Normal Affect Current Medications Lactated Ringer's () 1,000 mls @ 100 mls/hr IV .Q10H ANISHA Last Admin: 03/25/20 09:09 Dose: 100 mls/hr Documented by: Assessment/Plan All Active Problems (Last Reviewed 03/10/20 @ 12:14 by Dary Land) Constipation (Acute) History of coronary artery stent placement (Resolved 11/02/12) Typical atrial flutter (Resolved) 69-year-old gentleman with severe constipation. I propose for him a colonoscopy with possible biopsy or polypectomy is indicated. He is aware of the technique, benefit, risk, alternatives. Previous colonoscopy was October 2010. Charlie Wilcox M.D., F.A.C.S.
--- NOTE | 2020-03-25 10:00 | COLBX_PTH ---
PATIENT: BESSIE CAMACHO LOC: EN U#:[id number] AGE/SX: 69/M ROOM: RE03/25/[address]: Dr. Charlie Wilcox MD : 1950 BED: DIS: 03/25/2020 SPEC #: [id number] RECD: 03/25/20 11:41 STATUS: JONAS DULCE MARIA #: [id number] JODY: 03/25/20 10:[address]: Charlie Wilcox DEPT: SURGICAL PATHOLOGY RECD BY: Michael Prieto ENTERED: 03/25/20 12:15 SP TYPE: COLON BX OTHR DR: Dr. Oneil Raygoza MD Tissues: Transverse colon Procedures: Surgery Specimen Level IV HEADER OPERATION: Colonoscopy (MAC) PRE-OP DIAGNOSIS: Constipation TISSUE SUBMITTED: Mid transverse colon polyp MICROSCOPIC DIAGNOSIS Mid transverse colon polyp, biopsy: Tubular adenoma. Fecal debris. AM:trang 03/26/20 MICROSCOPIC DESCRIPTION Slides are reviewed. GROSS DESCRIPTION Received in fixative is one container labeled with the patient's name and designated mid transverse colon polyp. The specimen consists of multiple irregular fragments of light franks soft tissue that in aggregate measure 2 x 1 x 0.1 cm. The specimen is totally submitted in one cassette. / AM:trang 03/25/20 TC:5 CPT: 19432
[2020-03-25 10:20] VITALS: BP 102/61; BP 86/60; PULSE 58; RESP 16; TEMP 36.1; O2SAT 94
--- NOTE | 2020-03-25 10:24 | OP.COLON_ITS ---
Patient Name: Lee Giron Procedure Date: 03/25/2020 9:51 AM Date of : 1950 Age: 69 Procedure: Colonoscopy Indications: Constipation Providers: Charlie Wilcox MD Referring MD: Oneil Raygoza MD Medicines: See the Anesthesia note for documentation of the administered medications Patient Profile: Last Colonoscopy: October 2010. Complications: No immediate complications. Procedure: Pre-Anesthesia Assessment: - Prior to the procedure, a History and Physical was performed, and patient medications and allergies were reviewed. The patient's tolerance of previous anesthesia was also reviewed. The risks and benefits of the procedure and the sedation options and risks were discussed with the patient. All questions were answered, and informed consent was obtained. Prior Anticoagulants: The patient has taken no previous anticoagulant or antiplatelet agents. ASA Grade Assessment: II - A patient with mild systemic disease. After reviewing the risks and benefits, the patient was deemed in satisfactory condition to undergo the procedure. After I obtained informed consent, the scope was passed under direct vision. Throughout the procedure, the patient's blood pressure, pulse, and oxygen saturations were monitored continuously. The Colonoscope was introduced through the anus and advanced to the cecum, identified by appendiceal orifice and ileocecal valve. The colonoscopy was performed without difficulty. The patient tolerated the procedure well. The quality of the bowel preparation was good. The ileocecal valve and the appendiceal orifice were photographed. Scope In: 10:01:53 AM Scope Withdrawal Time 0 hours 7 minutes 14 seconds Scope Out: 10:15:26 AM Total Procedure Duration Time 0 hours 13 minutes 33 seconds Findings: Hemorrhoids were found on perianal exam. Prostate, normal A 8 mm polyp was found in the mid transverse colon. The polyp was sessile. The polyp was removed with a hot snare. Resection and retrieval were complete. Multiple diverticula were found in the sigmoid colon. Impression: - Hemorrhoids found on perianal exam. - One 8 mm polyp in the mid transverse colon, removed with a hot snare. Resected and retrieved. - Diverticulosis in the sigmoid colon. Recommendation: - Discharge patient to home. - Resume previous diet. - Continue present medications. - Repeat colonoscopy in 5 years for surveillance. - Telephone my office for pathology results in 1 week. Patient given conservative instructions to assist with constipation Procedure Code(s): --- Professional --- 29329, Colonoscopy, flexible; with removal of tumor(s), polyp(s), or other lesion(s) by snare technique Diagnosis Code(s): --- Professional --- K64.9, Unspecified hemorrhoids D12.3, Benign neoplasm of transverse colon (hepatic flexure or splenic flexure) K59.00, Constipation, unspecified K57.30, Diverticulosis of large intestine without perforation or abscess without bleeding CPT copyright 2017 [employer]. All rights reserved. The codes documented in this report are preliminary and upon ore smelter review may be revised to meet current compliance requirements. Charlie Wilcox MD 03/25/2020 10:23:56 AM This report has been signed electronically. Number of Addenda: 0 Note Initiated On: 03/25/2020 9:51 AM
--- NOTE | 2020-03-25 10:24 | OP.CCLET_ITS ---
03/25/2020 Oneil Raygoza MD [address] [id number] Re : Colonoscopy procedure for Lee [place] Dear Dr. Raygoza This procedure was performed on Wednesday, March 25, 2020. My impressions and recommendations are as follows: Impressions : - Hemorrhoids found on perianal exam. - One 8 mm polyp in the mid transverse colon, removed with a hot snare. Resected and retrieved. - Diverticulosis in the sigmoid colon. Recommendations : - Discharge patient to home. - Resume previous diet. - Continue present medications. - Repeat colonoscopy in 5 years for surveillance. - Telephone my office for pathology results in 1 week. Patient given conservative instructions to assist with constipation My findings are described in the full procedure note, which is enclosed. If I can be of further assistance, please feel free to contact me at Doctor phone number(s): Work: . Sincerely, Charlie Wilcox MD 03/25/2020 10:23:56 AM This report has been signed electronically.
[2020-03-25 10:25] VITALS: BP 102/61; BP 86/59; PULSE 60; RESP 16; O2SAT 95
[2020-03-25 10:30] VITALS: BP 102/61; BP 96/60; PULSE 60; RESP 16; O2SAT 96
[2020-03-25 10:35] VITALS: BP 102/61; BP 89/68; PULSE 58; RESP 16; TEMP 36.1; O2SAT 100
[2020-03-25 10:48] VITALS: BP 102/61
== END 2020-03-25 10:50 | disposition home or self-care (01) ==
LOC: EN 08:44 → AC 08:58
PROVIDERS: PCP Family Medicine; Referring Provider Family Medicine; Visit Provider Surgery
PROC: 0DJD8ZZ Inspection of Lower Intestinal Tract, Via Natural or Artificial Opening Endoscopic (ICD-10-PCS; CPT 45378; principal; 2020-03-25 09:55)
DX: K59.00 Constipation, unspecified (principal); Z20.828 Contact with and (suspected) exposure to other viral communicable diseases; I25.10 Atherosclerotic heart disease of native coronary artery without angina pectoris; I48.19 Other persistent atrial fibrillation; Z79.899 Other long term (current) drug therapy; Z79.82 Long term (current) use of aspirin; I10 Essential (primary) hypertension; E78.5 Hyperlipidemia, unspecified; F17.200 Nicotine dependence, unspecified, uncomplicated; K64.9 Unspecified hemorrhoids; K57.30 Diverticulosis of large intestine without perforation or abscess without bleeding; D12.3 Benign neoplasm of transverse colon
CPT/HCPCS: 45385; 87426; 88305; C9803; J7120

== ENCOUNTER → 2020-05-14 09:10 | Outpatient (CLI) | payer MEDICARE, OTHER, SELFPAY ==
[2020-05-14 11:03] LABS: Anion Gap 7 (5-15); BUN 19 mg/dL (7-18); BUN/Creat Ratio 20.7 RATIO (10-20); Calcium,Total 9.1 mg/dL (8.5-10.1); Chloride 103 mmol/L (98-107); Cholesterol 197 mg/dL (200); Creatinine, Serum 0.92 mg/dL (0.70-1.30); EST Glomerular Filtration Rate 87 mL/min (>60); Est Glom Filt Rate - Afr Amer 105 mL/min (>60); Glucose 85 mg/dL (74-106); High Density Lipoprotein 78 mg/dL; Potassium 4.3 mmol/L (3.5-5.1); Sodium Level 137 mmol/L (136-145); Triglycerides 70 mg/dL; Very Low Density Lipoprotein 14 mg/dL (5-40)
== END ==
PROVIDERS: PCP Family Medicine; Referring Provider Family Medicine; Visit Provider Family Medicine
DX: I10 Essential (primary) hypertension (principal)
CPT/HCPCS: 36415; 80048; 80061

== ENCOUNTER → 2020-05-15 17:02 | Outpatient (CLI) | payer MEDICARE, OTHER, SELFPAY ==
--- NOTE | 2020-05-15 17:07 | CT_ITS ---
EXAM: CT CHEST WITH INTRAVENOUS CONTRAST : 1950 CLINICAL INDICATION: Pulmonary nodule follow up, no new problems. Hx hyperension, smoking, afib, ablation and stent, left nephrectomy. TECHNIQUE: Helically acquired images were obtained of the chest with intravenous contrast. This CT exam was performed using one or more of the following dose reduction techniques: automated exposure control, adjustment of the mA and/or kV according to patient size, and/or use of iterative reconstruction technique. This report was created using [employer] report eyetok technology. CONTRAST: IV 100mL Isovue-370 COMPARISON: Previous CT scans of the chest are from May 04, 2019, at the origin 2018, and November 17, 2017. FINDINGS: LUNGS AND PLEURAL SPACES: Pulmonary hyperexpansion with pulmonary emphysema is similar. Chronic bronchitis is similar. Spiculated nodular disease within the left upper lobe is identical to that of November 17, 2017. Angulated flat pleural parenchymal nodule in the undersurface of the right minor fissure is the same as well. No mass. No pleural effusion or thickening. No pneumothorax. HEART: Unremarkable. Heart size is normal. No pericardial effusion. MEDIASTINUM: Unremarkable. No mediastinal or hilar adenopathy. Esophagus is unremarkable. No hiatal hernia. THYROID: Unremarkable. No thyroid lesions. BONES/JOINTS: Unremarkable. No suspicious lytic or blastic abnormality. VASCULATURE: Elongation of the thoracic aorta with aortopulmonary window calcific ASCVD within the region of the ligamentum arteriosum. Thoracic aorta is non-dilated. No thoracic aortic dissection. No obvious central pulmonary embolism although this study was not performed with the pulmonary embolism protocol. ADRENALS: The left adrenal gland is plethoric. The appearance of the left adrenal gland is identical to that of November 17, 2017. Therefore, the nodularity of the left adrenal gland is benign. KIDNEYS AND URETERS: The left kidney has been resected. CT/Chest WITH Contrast IMPRESSION: Left upper lobe pleural nodule and right middle lobe flat pleural parenchymal nodules are now stable since November 17, 2017, over 2-1/2 years of stability. Stability for this lung is consistent with benignity in this patient with emphysema. Cholelithiasis is demonstrated on today's study as imaged slightly lower than the previous studies. Plethoric nodular left adrenal gland is also unchanged since November 17, 2017, consistent with benignity. . Individualized dose optimization techniques were used for this CT. at 0705 Reported and signed by: Nayan Vieira MD Electronically Signed: Nayan Vieira MD at 7:04 EST Tel , Service support ,
== END ==
PROVIDERS: PCP Family Medicine; Referring Provider Family Medicine; Visit Provider Family Medicine
DX: R91.1 Solitary pulmonary nodule (principal)
CPT/HCPCS: 71260; Q9967

== ENCOUNTER → 2020-08-11 06:22 | Outpatient (CLI) | payer MEDICARE, OTHER, SELFPAY ==
[2020-01-31 14:16] VITALS: BMI 23.8
--- NOTE | 2020-08-11 09:20 | STRESSREP ---
Stress Test Report Pharmacologic myocardial perfusion stress test. 70-year-old man with a history of coronary artery disease status post angioplasty and stenting of the left anterior descending artery. Stress protocol: Resting EKG demonstrates normal sinus rhythm with a rate of 60 bpm normal intervals are noted resting blood pressure is 120/70 mmHg. 0.4 mg of regadenoson was infused per usual protocol followed by rapid intravenous saline flush injection continuous EKG monitoring was performed. The maximum heart rate attained was 77 bpm which was 51% of maximum predicted heart rate and the maximum workload was 1 metabolic equivalent. At rest and during peak infusion nonspecific ST changes were noted which did not meet the criteria for ischemia. No clinical angina was noted. The final blood pressure was 110/64. Myocardial perfusion protocol. 11.5 mCi of technetium 99m sestamibi was injected at rest. 0.4 mg of regadenoson was infused per usual protocol. At peak infusion 32.8 mCi of technetium 99m sestamibi was injected stress images were obtained stress and rest images were reconstructed and compared in the short axis vertical long and horizontal long axis. Gated SPECT analysis: The gated ejection fraction was noted to be 60%. Perfusion SPECT analysis: Review of the stress images demonstrate normal uptake of tracer noted in all areas of the myocardium. The resting images similarly demonstrate normal uptake of tracer noted in all areas of the myocardium. No areas of reversibility are noted to suggest ischemia. No previous infarct is noted. Conclusion: Normal pharmacologic myocardial perfusion stress test. Preserved ejection fraction.
== END ==
PROVIDERS: PCP Family Medicine; Referring Provider Internal Medicine Cardiovascular Disease; Visit Provider Internal Medicine Cardiovascular Disease
DX: I25.10 Atherosclerotic heart disease of native coronary artery without angina pectoris (principal); I48.19 Other persistent atrial fibrillation; I48.3 Typical atrial flutter; I10 Essential (primary) hypertension; E78.5 Hyperlipidemia, unspecified; F17.200 Nicotine dependence, unspecified, uncomplicated; Z95.5 Presence of coronary angioplasty implant and graft
CPT/HCPCS: 78452; 93017; A9500; A4216; J2785

== ENCOUNTER 2020-12-17 19:15 | Inpatient (IN) | payer MEDICARE, OTHER, SELFPAY ==
[2020-12-17 19:34] VITALS: BMI 25.0
--- NOTE | 2020-12-17 20:00 | NURSING ---
1855- Arrival to unit via [facility] per two EMS personnel from [facility]. Noted b/l soft wrist restraints. Transferred from [facility] to hospital via both EMS personnel and four nursing staff assist. O2 at 6 lpm via trach collar. G-tube connected to drainage bag w/ scant amount of clear, franks colored drainage. Bag is fairly taut. Daughter, Pennie, arrives shortly thereafter. Top two half rails up with daughter and staff in the room. Mildly restless. Appears in no acute distress. Call light w/ in reach.
[2020-12-17 20:30] VITALS: BP 106/78; PULSE 90; RESP 20; TEMP 36.1; O2SAT 92
--- NOTE | 2020-12-17 20:30 | NURSING ---
Addendum entered by Tori Cardenas 12/17/20 23:28: Upper and lower dentures at Pennie's home. Has passey for trach here. Unsure when device will be utilized and concerned it may become displaced. Encouraged Pennie to take passey with her when ST feels device can be implemented, instructed to bring back to unit. Original Note: Assessment questions completed w/ Pennie. Pt lives alone and is . Spouse passed in 2014. Insurance verified. Copies of insurance card, COVID vaccine card- initial dose of Moderna vaccine administered on 12/13, with second dose due on 01/10, and living will and DPOA for healthcare. Pennie is pt's only child. Multiple questions asked per Pennie and answered per this nurse and additional IRU staff. Pennie is unable to stay w/ pt tonight due to family obligations at home. Given contact info for hospital and encouraged to contact anytime for any questions or concerns.
[2020-12-17] MEDS: Dext 5%-0.45% NS 1,000 ML 75 ML IV (22:58)
[2020-12-17 23:50] VITALS: RESP 18; O2SAT 93
--- NOTE | 2020-12-17 23:50 | NURSING ---
Jose from Pulmonary Services assessed resp status. O2 delivery changed to 10 LPM at 40% w/ humidification. Deep suctioning x 1, pt tolerated fair. This nurse remained at bedside while suction completed to provide emotional support. Jose cleaned and replaced inner cannula. Will continue to monitor.
[2020-12-18] VITALS (8 sets, daily range): BP systolic 92–106; BP diastolic 58–70; PULSE 80–123; RESP 16–20; TEMP 36.6–36.8; O2SAT 90–93
--- NOTE | 2020-12-18 00:15 | NURSING ---
Daughter and DPOA for Healthcare, Pennie, calls in to unit for an update on pt condition. Informed of changes previously noted per resp therapy. IV fluids at 75 ml/hr via s/l to RFA. Second s/l dc'ed due to blood near insertion site, most likely from pt picking at IV site under dressing. Informs this nurse pt was given Melatonin and Seroquel at hs and acknowledges tube is unble to be used until 12/18. Expresses appreciation for updates and encouraged to call for any additional questions or concerns.
[2020-12-18] MEDS: Acetaminophen 650 MG Suppository RC (01:05)
--- NOTE | 2020-12-18 03:57 | NURSING ---
Pt expectorated a moderate amount of light franks, medium consistency sputum. Continues w/ moist cough. Deep suctioning completed and removed small amount of additional secretions of the same color and consistency. Pt tolerated well. Trach collar w/ O2 at 10 LPM at 40%. Incontinent of lg amount of urine. Bladder scan completed per MISA García, for 0 ml. Pericare done, new brief applied, and positioned in bed for comfort. This nurse remains at bedside. SR up x 3. Call light w/ in reach.
--- NOTE | 2020-12-18 04:39 | NURSING ---
Left vm for Hayde ROMANO, to follow-up w/ pt's daughter, Pennie, to discuss plan for daily communication to include updates.
[2020-12-18 06:00] LABS: Hematocrit 36.4 % (40-54); Hemoglobin 11.8 g/dL (13.0-16.5); Mean Corp Hgb Conc 32.4 g/dL (32-36); Mean Corpuscular Hgb 32.9 pg (27.0-32.0); Mean Corpuscular Volume 101.4 fL (80-94); Mean Platelet Vol. 10.2 fl (6.2-12.0); Platelet Count 557 K/mm3 (150-450); RBC Distribution Width CV 14.6 % (11.6-14.6); RBC Distribution Width SD 54.5 fl (35.1-43.9); Red Blood Count 3.59 M/mm3 (4.6-6.2); White Blood Count 10.1 K/mm3 (4.4-11.0)
[2020-12-18 06:29] LABS: ALB/GLOB Ratio 0.5 RATIO (0.9-2.4); AST(SGOT) 32 U/L (15-37); Alanine Aminotransfer ALT/SGPT 45 U/L (16-61); Albumin, Serum 2.4 g/dL (3.2-5.0); Alkaline Phosphatase 116 U/L (45-117); Anion Gap 8 (5-15); BUN 35 mg/dL (7-18); BUN/Creat Ratio 38.8 RATIO (10-20); Calcium,Total 9.3 mg/dL (8.5-10.1); Chloride 94 mmol/L (98-107); EST Glomerular Filtration Rate 88 mL/min (>60); Est Glom Filt Rate - Afr Amer 107 mL/min (>60); Estimated Creatinine Clearance 78.86 ml/min; Globulin 5.2 g/dL (2.2-4.2); Glucose 126 mg/dL (74-106); Magnesium 2.4 mg/dL (1.6-2.6); Phosphorus 3.6 mg/dL (2.5-4.9); Protein, Total 7.6 g/dL (6.4-8.2); Sodium Level 137 mmol/L (136-145)
--- NOTE | 2020-12-18 06:48 | NURSING ---
G-tube drainage bag emptied for 100 ml semi-cloudy, light franks-colored drainage w/ small amount of white flecks. Bag semi-taut and decompressed.
--- NOTE | 2020-12-18 07:27 | NURSING ---
G-tube drained for 150 ml semi-clear serous fluid w/ small amount of white flecks noted. Bag decompressed. Pt removed part of padding from cervical collar. Large amount of pale yellow, medium-consistency mucous suctioned via Yankauer prior to placement of new split 4x4. Cervical collar reapplied. Positioned in bed for comfort. SR up x 3. Bed in lowest position. Call light w/ in reach.
--- NOTE | 2020-12-18 08:00 | EKG12_ITS ---
Test Reason : TACHYCARDIC Blood Pressure : / mmHG Vent. Rate : 126 BPM Atrial Rate : 126 BPM P-R Int : 000 ms QRS Dur : 088 ms QT Int : 342 ms P-R-T Axes : 000 083 049 degrees QTc Int : 495 ms Undetermined rhythm : Consider Sinus Rhythm with Subsequent Atrial Flutter Nonspecific ST abnormality Abnormal ECG Confirmed by RICHARD VILLALTA, MARSHALL ([id number]), online editor MODE DARDEN ([id number]) on 12/22/2020 1:46:08 PM Referred By: FAROOQ Confirmed By:MARSHALL RAMOS MD
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
[2020-12-18] MEDS: Dext 5%-0.45% NS 1,000 ML 75 ML IV (11:40)
[2020-12-18] MEDS: amLODIPine 10 MG Tablet GT (11:41)
[2020-12-18] MEDS: Metoprolol Tartrate 25 MG Tablet GT ×2 (11:41→18:11)
[2020-12-18] MEDS: Senna/Docusate Sodium 1 Tablet 2 TABLET GT ×2 (11:43→23:23)
--- NOTE | 2020-12-18 13:24 | RAD_ITS ---
STUDY: X-RAY CHEST REASON FOR EXAM: Male, 70 years old. Hypoxia TECHNIQUE: Single AP portable view of the chest. COMPARISON: None. FINDINGS: There is tracheotomy. The right lung is hyper aerated. There is left lower lung airspace consolidation. There is moderate left pleural effusion. Normal size heart. Normal mediastinum and carlotta. Normal visualized pulmonary arteries. Normal visualized aortic arch and descending thoracic aorta. Normal visualized thoracic spine. There is a left posterior fifth through 10th rib fractures. There is percutaneous gastrostomy in the stomach. RAD/Chest 1 View (Portable) IMPRESSION: Left lower lung infiltrate or contusion and pleural effusion. Left rib fractures. Electronically Signed: Ron Morfin MD at 16:58 EDT , Service support ,
--- NOTE | 2020-12-18 14:22 | CASEMGMT ---
Social Work Spoke with nursing about dtr's request for daily communication. Nursing has spoken with dtr prior to this worker and will complete communication. Spoke with dtr. Explained Medicare benefit. Answered questions and confirmed nursing to provide updates, but assured dtr this worker is available to provide updates as well. Dtr appreciative and will be present at Team meeting. SW to continue to follow. RAYA Julian QI SPECIALIST
[2020-12-18] MEDS: Acetaminophen 650 MG/20 ML UDC 1000 MG GT ×2 (14:39→23:23)
[2020-12-18] MEDS: Jevity 1.5 1,000 ML 40 ML GT (14:39)
[2020-12-18] MEDS: Enoxaparin 40 MG/0.4 ML Syringe SC (14:40)
[2020-12-18] MEDS: Potassium Chloride Oral Soln 20 MEQ/15 ML UDC 40 MEQ PO ×2 (14:41→18:07)
[2020-12-18 15:36] LABS: Allen Test Positive; Base Excess 16 mmol/L (-2 to +2); Bicarbonate 37.4 mmol/L (22-26); Blood Gas Specimen Type ART; PO2 49 mmHG (75-100); SITE R Radial; SO2 90 % (95-99); Total Carbon Dioxide 39 mmol/L; pCO2 38.5 mmHg (35-45)
--- NOTE | 2020-12-18 18:30 | CPS ---
Dr. Alcala was notified of the critical Ph value by JIN Smith
[2020-12-18] MEDS: QUEtiapine 25 MG Tablet GT (20:27)
[2020-12-18] MEDS: oxyCODONE 5 MG Tablet GT (20:27)
--- NOTE | 2020-12-18 20:30 | NURSING ---
UNABLE TO SUCCESSFULLY STRAIGHT CATH PT FOR SPECIMEN 15 FR RED RUBBER CATHETER MEETS WITH OBSTRUCTION AND UNABLE TO PASS THROUGH OBSTRUCTION WITH MILD STEADY PRESSURE. DR TRIVEDI NOTIFIED AND ORDER TO USE [place] CATHETER TO OBTAIN SPECIMEN. PT INCONTINENT OF LARGE AMT OF DARK YELLOW URINE IN ATTENDS.
--- NOTE | 2020-12-18 23:57 | NURSING ---
[place] CATHETER APPLIED TO PT AND ATTACHED TO A LEG BAG. PT REMAINS ASLEEP DURING PROCEDURE.
[2020-12-19] VITALS (12 sets, daily range): BP systolic 80–115; BP diastolic 50–68; PULSE 76–110; RESP 16–18; TEMP 36.6–36.8; O2SAT 90–93
--- NOTE | 2020-12-19 01:26 | NURSING ---
DR FELIPE NOTIFIED THAT PT'S MANUAL BP IS 80/60. ORDER GIVEN FOR NS BOLUS AND TO RECHECK BP 30 MINUTES AFTER INFUSION COMPLETE.
[2020-12-19] MEDS: Dext 5%-0.45% NS 1,000 ML 75 ML IV (02:16)
--- NOTE | 2020-12-19 03:30 | NURSING ---
PT HAS NOT VOIDED YET INTO [place] CATHETER. BLADDER SCANNED FOR 287 ML URINE.
[2020-12-19] MEDS: Acetaminophen 650 MG/20 ML UDC 1000 MG GT ×3 (06:11→20:37)
[2020-12-19] MEDS: Metoprolol Tartrate 25 MG Tablet GT ×3 (06:12→18:15)
[2020-12-19] MEDS: Enoxaparin 40 MG/0.4 ML Syringe SC (06:12)
[2020-12-19 12:17] LABS: Bacteria 0 SEEN /hpf (None Seen); Mucous, Urine 0 SEEN /hpf (<or=2+); Red Blood Cells-Urine 0 SEEN /hpf (0-5); Squamous Epithelial Cells - UA 0 SEEN /hpf (0-5); White Blood Cells 0 SEEN /hpf (0-5)
[2020-12-19] MEDS: oxyCODONE 5 MG Tablet GT ×2 (12:19→18:42)
[2020-12-19] MEDS: Senna/Docusate Sodium 1 Tablet 2 TABLET GT ×2 (12:19→20:36)
[2020-12-19 12:21] LABS: Color, Urine Yellow (Yellow); Glucose, Dipstick Normal (Normal); Ketone-Dipstick Negative (Negative); Leukocyte Esterase-Dipstick Negative /ul (Negative); Nitrite-Dipstick Negative (Negative); Occult Blood-Urine Negative /ul (Negative); Protein-Dipstick Negative (Negative); Specific Gravity, Urine 1.015 (1.002-1.030); Urine Bilirubin Dipstick Negative (Negative); Urine Clarity Clear (Clear); Urine Urobilinogen 1 mg/dl (Normal)
[2020-12-19] MEDS: Jevity 1.5 1,000 ML 40 ML GT (12:29)
[2020-12-19 12:30] LABS: Amorphous Sediment 2+
[2020-12-19] MEDS: QUEtiapine 25 MG Tablet GT (20:36)
[2020-12-20] VITALS (10 sets, daily range): BP systolic 90–104; BP diastolic 59–69; PULSE 84–98; RESP 16; TEMP 36.3; O2SAT 90–94
[2020-12-20] MEDS: Metoprolol Tartrate 25 MG Tablet GT ×4 (00:52→18:41)
[2020-12-20] MEDS: oxyCODONE 5 MG Tablet GT ×3 (00:56→18:42)
[2020-12-20] MEDS: Enoxaparin 40 MG/0.4 ML Syringe SC (06:33)
[2020-12-20] MEDS: Acetaminophen 650 MG/20 ML UDC 1000 MG GT ×3 (06:33→21:54)
--- NOTE | 2020-12-20 09:55 | NURSING ---
This nurse walked in and patient had thrown neck brace across the room, tore apart his t tube and trach collar and was getting no oxygen. Patient then tried to pull at trach when this nurse was present in room and said, off. This nurse did 1:1 to help with patients anxiety and reapplied all of his medical stuff.
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
[2020-12-20] MEDS: Haloperidol Lactate 5 MG/ML Vial 2 MG IM (10:11)
[2020-12-20] MEDS: Jevity 1.5 1,000 ML 40 ML GT (13:19)
--- NOTE | 2020-12-20 13:34 | NURSING ---
Dr. Don aware of ineffective haldol use given earlier by this nurse. This nurse has been sitting with patient in the last hour due to pulling at oxygen via trach collar, ripping off cervical neck collar, tearing apart his bed linens. Patient has been agitated throughout shift. Patient restless. New order received for haldol IM 10mg x 1.
[2020-12-20] MEDS: Haloperidol Lactate 5 MG/ML Vial 10 MG IM (13:53)
--- NOTE | 2020-12-20 14:15 | NURSING ---
Daughter given update on patient and she is on her way in to see her father. Patient is somewhat calmer since the haldol given IM prior.
--- NOTE | 2020-12-20 18:23 | NURSING ---
Patient continues with agitation and daughter reporting to staff that she cannot handle her father anymore. He has been pulling at his neck collar and trach oxygen tubing, etc still. He is agitated and 1:1 and repositioning ineffective. New order per Dr. Don for Seroquel TID 100mg.
[2020-12-20] MEDS: QUEtiapine 100 MG Tablet GT (18:42)
--- NOTE | 2020-12-20 19:30 | NURSING ---
Daughter leaving at this time and patient is sleeping. Will monitor.
[2020-12-21] VITALS (7 sets, daily range): BP systolic 98–116; BP diastolic 57–78; PULSE 97–107; RESP 16–18; TEMP 36.2–36.4; O2SAT 93–99
[2020-12-21] MEDS: Metoprolol Tartrate 25 MG Tablet GT ×4 (00:55→17:22)
[2020-12-21] MEDS: QUEtiapine 100 MG Tablet GT ×3 (01:06→17:22)
[2020-12-21] MEDS: Haloperidol Lactate 5 MG/ML Vial 2 MG IM (05:00)
[2020-12-21] MEDS: Enoxaparin 40 MG/0.4 ML Syringe SC (05:00)
[2020-12-21] MEDS: Acetaminophen 650 MG/20 ML UDC 1000 MG GT ×3 (05:00→20:30)
[2020-12-21] MEDS: Propranolol 10 MG Tablet GT (05:01)
[2020-12-21] MEDS: oxyCODONE 5 MG Tablet GT ×3 (05:05→20:08)
--- NOTE | 2020-12-21 05:12 | NURSING ---
Pt impulsive, thrashing legs in bed, and agitated this a.m. after cleaning pt up from incontinence episode. Pt throwing bedding to floor and grabbing for staff's arm while administering meds. Haldol PRN provided. Staff has been in room to check on pt and prevent pt from pulling at trache collar.
--- NOTE | 2020-12-21 07:02 | NURSING ---
Pt removed trache collar, O2, and gown. Gui hose were half way down leg and pulled up over toes. Pt reached out for staff when staff tried to reapply the trache and encouraged pt to leave O2 on. Pt had urinated onto bedding and onto floor.
[2020-12-21] MEDS: amLODIPine 10 MG Tablet GT (09:45)
--- NOTE | 2020-12-21 14:00 | NURSING ---
Brother in for visit and patient opened up his eyes and attempted a smile. Patient recognized his brother. Staff got patient up in recliner x 2 stand pivot but brother sat with him while he was in the chair due to impulsivity. Patient has been agitated at times but not aggressively pulling at his tubes like yesterday.
[2020-12-21] MEDS: Jevity 1.5 1,000 ML 40 ML GT (16:04)
[2020-12-22] VITALS (11 sets, daily range): BP systolic 95–127; BP diastolic 51–70; PULSE 63–118; RESP 16–18; TEMP 36.6–36.7; O2SAT 88–96
[2020-12-22] MEDS: Metoprolol Tartrate 25 MG Tablet GT ×5 (00:58→23:00)
[2020-12-22] MEDS: QUEtiapine 100 MG Tablet GT ×3 (00:58→17:21)
--- NOTE | 2020-12-22 05:00 | NURSING ---
PT IS RESISTANT TO REAPPLICATION OF C-COLLAR AND OXYGEN. SITTING 1:1 IN ROOM WITH PT. PT IS AGITATED AND UNCOOPERATIVE WITH BATHING AND ORAL CARE.
[2020-12-22] MEDS: Haloperidol Lactate 5 MG/ML Vial 2 MG IM ×2 (05:28→22:45)
[2020-12-22] MEDS: Acetaminophen 650 MG/20 ML UDC 1000 MG GT ×3 (05:38→22:03)
[2020-12-22] MEDS: Enoxaparin 40 MG/0.4 ML Syringe SC (05:38)
--- NOTE | 2020-12-22 06:15 | NURSING ---
PT REMAINS RESISTANT TO ORAL CARE. PUTTING LEG OVER SIDE OF BED AT INTERVALS. CONTINUES TO TRY TO REMOVE COLLAR AND OXYGEN WITH STAFF SITTING NEXT TO PT.
--- NOTE | 2020-12-22 06:15 | NURSING ---
C-COLLAR AND OXYGEN REAPPLIED. SITTING 1:1 WITH PT. PT TRIES TO PULL OFF COLLAR AND O2 EVERY FEW MINUTES.
[2020-12-22] MEDS: oxyCODONE 5 MG Tablet GT ×2 (10:05→16:51)
[2020-12-22] MEDS: amLODIPine 10 MG Tablet GT (10:05)
--- NOTE | 2020-12-22 10:55 | CASEMGMT ---
Social Work IDT met with patient and dtr for Team meeting. Discussed patient's progress in therapy and nursing. Answered dtr's questions and addressed concerns. Dtr requested daily communication - IDT implemented notebook kept in pt's room for each discipline to provide updates before dtr visits in the evening - dtr in agreement. Dtr concerned about family members visiting pt and requests visitors outside current hospital COVID visitation policy. SW provided dtr with patient advocate contact information. Dtr has several medical questions/concerns - left message for Dr. Alcala to contact dtr upon her return from vacation. Dtr appreciative. SW provided contact information and offered ongoing assistance. Explained Medicare will provide ELOS and SW to provide those days once received and will assist with discharge planning and support. Will ReTeam next week. Will continue to follow. RAYA JulianW
--- NOTE | 2020-12-22 14:43 | CT_ITS ---
STUDY: CT FACIAL BONES WITHOUT CONTRAST REASON FOR EXAM: Male, 70 years old. History of multiple falls. RADIATION DOSAGE (If Supplied By Facility): CTDIvol = ( 25.01 ) mGy, DLP = ( 586.18 ) mGycm TECHNIQUE: The patient was scanned in a multi detector CT scanner. Sagittal and coronal images were reconstructed. Individualized dose optimization techniques were used for this CT. COMPARISON: None. FINDINGS: Normal soft tissue structures. Normal orbital marcial and orbital contents. Normal nasal bones and anterior nasal spine. Normal facial bones. There is no demonstrated fracture. Hypertrophy of the inferior turbinate of the right nasal fossa. Normal visualized paranasal sinuses. CT/Sinus/Facial Bone IMPRESSION: Hypertrophy of the inferior turbinate in the right nasal fossa. Electronically Signed: Santy Santos MD at 15:18 EDT , Service support ,
--- NOTE | 2020-12-22 14:52 | CHAPLAIN ---
Type of Pastoral Visit ___ Initial Visit ___ Follow-up Visit ___ On-call Visit ___ General Patient Visit ___ Spiritual Assessment ___ Family Conference ___ Bereavement ___ Rapid Response ___ Code Blue ___ Other (describe below) Pastoral Care Referral From ___ Patient ___ Family ___ Nurse ___ Physician ___ Pulp Bleacher ___ Online Marketing Strategist ___ Other (describe below) Sacrament/Intervention ___ Active listening ___ Anointing ___ Holiness ___ Bereavement ___ Communion ___ Sandy exploration ___ ___ Life review ___ Prayer ___ Reconciliation ___ Sacrament of Sick ___ Supportive presence ___ Wedding ___ Other (describe below) Pastoral Comments patient was not in the room during attempted visit
[2020-12-22] MEDS: Jevity 1.5 1,000 ML 60 ML GT (17:22)
--- NOTE | 2020-12-22 17:56 | NURSING ---
Pt removed C-Collar and Trach Collar O2 several times throughout the day. Attempted to reeducated pt on the need to keep C-Collar and Trach Collar O2 in place. Pt gets agitated when staff reapplies.
--- NOTE | 2020-12-22 19:03 | PN_ITS ---
Subjective Subjective Patient seen, examined on IDT rounds. Patient is total assist, but bears weight, 2 Max assist for transfers. Over the weekend, he was agitated, pulling on trach, and PEG. Seroquel was increased to 100mg tid, but should be able to taper down once improved. Daughter Pennie present for IDT rounds, she had many questions which will need addressed over time. Daughter noted patient has left jaw pain. Objective Data Objective Data Vital Signs: Vital Signs Temp Pulse Resp BP Pulse Ox 98.0 F 84 16 108/52 L 88 12/22/20 07:56 12/22/20 17:21 12/22/20 07:56 12/22/20 17:21 12/22/20 07:56 Oxygen Flow Rate (L/min) 8 Oxygen Delivery Method Trach Collar Weight: 77 kg Body Mass Index (BMI) 25.0 Intake & Output: Intake and Output for Last 24 Hours 12/20/20 12/21/20 12/22/20 23:59 23:59 23:59 Intake Total 2680 / 2680 1460 / 1460 2136 / 2136 Balance 2680 / 2680 1460 / 1460 2136 Medical Nutrition Assessment Dietitian: Malnutrition Criteria Met Start: 12/18/20 17:32 Freq: Status: Active Protocol: Document 12/22/20 16:04 RMA (Rec: 12/22/20 16:04 RMA [id number]) Nutrition Malnutrition Evidence of Malnutrition Exists Yes Malnutrition (severe): Acute Illness/Injury Evidenced By Suboptimal Energy Intake ( Severe),Weight Loss (Severe) Intake Problem Enteral Nutrition Administration Inconsistent w/ Needs Etiology related to calorie/protein adequacy and malnutrition Signs/Symptoms as evidenced by R buttocks pressure injury and wt loss~2 Kg since admit; TF meeting~70% estimated edu/energy needs and ~65% estimated protein needs. Status Active Problem Clinical Problem Acute Disease or Injury Related Malnutrition Etiology Severe protein/calorie malnutrition in the context of acute injury/trauma related to inadequate energy intake and increased energy expenditure Signs/Symptoms as evidenced by ~15% wt loss, inability to take PO nutrition and meeting less than 50% estimated nutrition needs prior to admit. Status Active Problem Recommendation Dietitian Recommendations/Changes 1.) Pt to remain NPO with TF support meeting~100% estimated nutrition needs. 2.) Weight QOD--discussed with nurse. 3.) For continuous TF, Jevity 1.5 eud @ 20ml/hr and increase as tolerated by 10ml/ hr Q 6-8 hours to goal rate 60ml/hr with 175 ml water flush Q 4 hours. TF at goal rate with water flushes will provide 2160 kcal, 92 gm protein and 2145 ml free water per day. 4.) As TF transitions to bolus TF, recommend 240ml Jevity 1 .5 Edu bolus 6 times per day with 80ml water flush before and after each bolus to provide 2160 kcal, 92 gm pro and 2055 ml free water per day . 5.) Will monitor TF tolerance as established, wt, labs and follow-up. Lab / Micro Data Result Diagrams: 12/18/20 05:50 12/18/20 05:50 Radiography Diagnostic Testing: Radiology Impression Facial/Sinus 12/22/20 14:43 IMPRESSION: Hypertrophy of the inferior turbinate in the right nasal fossa. Electronically Signed: Santy Santos MD at 15:18 EDT , Service support , Physical Exam Const alert and oriented x3 General Appearance: cooperative HEENT normocephalic Eyes PERRL and EOMs intact bilaterally Neck supple, no JVD and no carotid bruits Neck Narrative: Tracheostomy. Resp normal respiratory effort, normal air movement and clear to auscultation bilaterally Cardio regular rate and regular rhythm GI normal to inspection, nondistended, normoactive bowel sounds, non-tender and non-distended GI Narrative: PEG tube present. Extremity normal capillary refill General Extremity: Negative for edema Skin no rashes or lesions noted General Skin Exam: no breakdown Psych affect normal Appearance: appropriate Assessment & Plan Assessment/Plan (1) Debility: (2) Closed TBI (traumatic brain injury): (3) Closed cervical spine fracture: (4) SDH (subdural hematoma): (5) Hypertension: (6) Dysphagia: (7) Hypertension: (8) Agitation: PLAN: 70 year old male with below past medical history hospitalized for multiple trauma, admitted to [facility] for greater than 3 hours daily rehabilitation, strengthening, prior to disposition determination. * Debility - PT/OT. * Cognition/dysphagia - ST. * Pain Tylenol 1000mg Q8H, Oxycodone 10mg Q4H PRN. * Bowel - Senna/colace 2 tablets twice daily, MOM 30ML x 1 dose PRN, Dulcolax 10mg [place] daily PRN. * DVT prophylaxis - Lovenox 40mg sc daily. * Hypertension - Metoprolol 25mg Q6H, Amlodipine 10mg daily. * Skin irritation - Calmoseptine topical twice daily, Eucerin topical 4x/day PRN. * Agitation - Seroquel 100mg tid, Haldol 2mg im q6H PRN, hopefully can taper once he is improved. * Nutrition - Jevity 1.5 60mL/hour. * Tachycardia - Propranolol 10mg Q6H PRN. Capacity Capacity Assessment Tool Can the patient make a choice & communicate that choice?: No Can the patient understand benefits, risks and alternatives?: No Can the patient make a logical, rational choice?: No Is the choice the patient makes consistent w/ their values?: Unable to Determine Is there an impending, emergent risk to the patient?: No Does the patient have an Advance Directive?: Yes Is there a Surrogate Available?: Yes i.e. HCPOA: Yes i.e. close relative (spouse, child, parent, sibling)?: Yes
--- NOTE | 2020-12-22 20:43 | NURSING ---
Checked on pt and seen the tubing disconnected. Reconnected and educated pt on the importance of leaving tubing on to help with breathing.
[2020-12-22] MEDS: Menthol/Lanolin/Calamine/Znox 113 GM Tube 1 APPLIC TOPICAL (22:04)
--- NOTE | 2020-12-22 22:20 | NURSING ---
Entered room to administer 2200 pt had removed his O2 and pulled off his gown. pt denies pain. O2 reattached, administered medications, brief checked, pt repositioned in bed.
--- NOTE | 2020-12-22 22:49 | NURSING ---
Entered room to find pt pulling off C-collar, pt had removed O2 tubing. pt broke part of his collar. Attempted to educate pt on importance of keeping to collar to protect his neck and needing to O2 for breathing. pt threw object. Collar and O2 reapplied while pt was resisting. Hadol administered.
--- NOTE | 2020-12-22 22:56 | NURSING ---
hadol 2 mg administered per order. 3mg left in vial wasted in sharps container, witnessed by MISA Arenas
--- NOTE | 2020-12-22 23:05 | NURSING ---
Haldol 2mg administered by Patsy BYNUM to left thigh. 3mg wasted in sharps container and witnessed by this nurse, MISA Arenas.
--- NOTE | 2020-12-22 23:06 | NURSING ---
pt pulled off C-collar and trach collar and threw it to bottom of bed. Attempted to educate pt on safety of wear C-collar and trach collar. Reapplied C-collar and trach collar and attached O2. Brief checked and pt repositioned in bed. Will continue to monitor.
--- NOTE | 2020-12-22 23:33 | NURSING ---
pt requiring 1:1, continues to attempt to remove C-collar. Refusing to keep O2 on, whenever this nurse attempts to reapply O2 pt pulls it off. Attempts to educate unsuccessful. Multiple attempts to engage pt with distraction and meet any needs. pt denies pain.
--- NOTE | 2020-12-22 23:40 | NURSING ---
pt removed C-collar, refusing to allow this nurse to reapply collar. Attempted to educate pt on importance of wearing the C-collar for his safety unsuccessful. pt attempting to climb out of bed. 1:1 continues.
--- NOTE | 2020-12-22 23:48 | NURSING ---
pt attempting to pull trach out. This nurse holding pt's hand and talking to him to try to calm him. pt finally allowed staff to reapply C-collar and O2. Talking to pt and attempting to distract him.
[2020-12-22] MEDS: oxyCODONE 5 MG Tablet 10 MG GT (23:52)
[2020-12-23] VITALS (10 sets, daily range): BP systolic 85–102; BP diastolic 57–73; PULSE 98–115; RESP 16–18; TEMP 36.4–36.6; O2SAT 90–96
--- NOTE | 2020-12-23 00:24 | NURSING ---
Notified Catherine Horton SHEET METAL INSTALLER of patient continuing to remove collar and attempting to pull out trach even with 1:1 supervision. pt being agitated and haldol 2mg not effective. Received order for Haldol 5mg IM one time dose. order repeated back.
[2020-12-23] MEDS: Haloperidol Lactate 5 MG/ML Vial IM (00:37)
--- NOTE | 2020-12-23 01:20 | NURSING ---
Staff continues to 1:1 monitor pt to keep collar in place. Pt stated, take me home!.
[2020-12-23] MEDS: QUEtiapine 100 MG Tablet GT (01:21)
[2020-12-23] MEDS: Metoprolol Tartrate 25 MG Tablet GT ×3 (05:31→18:22)
[2020-12-23] MEDS: Acetaminophen 650 MG/20 ML UDC 1000 MG GT ×3 (05:32→23:12)
[2020-12-23] MEDS: Enoxaparin 40 MG/0.4 ML Syringe SC (05:32)
--- NOTE | 2020-12-23 07:08 | NURSING ---
0520 pt awake and putting legs over the edge of the bed , pt was noted to be incontinent of urine and staff assisted in cleaning pt , per incontinence protocol. lotion applied to skin and staff cleansed around peg site. pt restless and trying to put staff hands away from cleansing the area, reassurance given and encourage pt to let staff clean area and was agreeable. staff completed trach care and pt was cooperative with this, explained what was going and pt cooperated. pt did indicated that he wanted that trach out and the c-collar off and to help him and staff explained why he had them, pt frowning and waving his hands. staff did shave pt as much as possible with pt waving his hands to have pt stop. 0620 pt continues to be restless throwing legs over the bed rails and wanting staff to help him remove the oxygen and c-collar. staff remains in room for safety staff encouraged pt to let them do oral and pt shook his head no, with much encouragement pt did allow staff to clean his mouth with swab and then spit fluid in the sheet. c-collar cleaned d/t secretions noted on the blue foam area, foam dried and replaced back on pt this staff member left pt room at 0730
[2020-12-23] MEDS: Haloperidol Lactate 5 MG/ML Vial 2 MG IM ×2 (07:45→16:10)
[2020-12-23] MEDS: oxyCODONE 5 MG Tablet 10 MG GT ×2 (07:45→20:19)
--- NOTE | 2020-12-23 09:09 | PN_ITS ---
Progress Note Afebrile VSS - BP is 98/57 today with a pulse of 109. The last 3 sets of VS's have had an increased HR. Maintaining appropriate oxygen saturation on 50% FOIO2 via a trach collar. He was on 40% when he came to rehab. remains NPO. He has a PEG and is receiving all nutrition through the PEG. I reviewed the Cigarette Packing Machine Operator's notes and he has severe protein calorie malnutrition due to los of > 10% of his body weight in the past month. Discussed with nursing - He required Haldol over the weekend for agitation. He requires constant care and nursing presence. Dr Don increased the Seroquel to 100 mg TID. He is getting Haldol PRN. Reviewed the PT/OT/ST notes. He is restless and impulsive. Easily frustrated. Follows some directions. Not initiating any volitional swallows yet. He is total assistance with all ADLs. Medication list reviewed. Physical Exam Const no apparent distress Constitutional Narrative: He is awake, follows occasional simple command. Restless and impulsive. Eyes EOMs intact bilaterally, conjunctivae normal and no scleral icterus Neck Neck Narrative: [place] J collar is in place Resp Resp Narrative: He has egophony on the left side approximately one half way up the posterior left lung. No crackles and no wheezes. No tachypnea. He is non- verbal. Does not appear to be in respiratory distress. Cardio Cardio Narrative: Irregular rhythm with mildly increased HR. No gallop and no rub. GI normal to inspection, nondistended, normoactive bowel sounds and soft to palpation Extremity no pedal edema Assessment & Plan Assessment/Plan (1) Debility: (2) Closed TBI (traumatic brain injury): (3) Encephalopathy acute: (4) Ribs, multiple fractures: (5) Intracranial hemorrhage following injury: (6) SDH (subdural hematoma): (7) SAH (subarachnoid hemorrhage): (8) Dysphagia: (9) History of recent pneumonia: (10) Status post tracheostomy: (11) Agitation: (12) Hypoxemia: (13) Presence of externally removable percutaneous endoscopic gastrostomy (PEG) tube: (14) History of ETOH abuse: (15) Persistent atrial fibrillation: (16) Urinary incontinence: (17) Fecal incontinence: (18) Nicotine dependence: (19) Hypokalemia: PLAN: 1. change the Seroquel to 50 mg at HS and 25 in the AM. 2. Check an EKG to look at the QTI in light of the high dose Seroquel and also because of the tachycardia. 3. CMP, MAG, PHOS, CBC with diff today 4. CXR today - take another look at the left base in light of the increased oxygen requirement. Visit Charges Inpatient E&M: 71325 Subs Hosp L3
--- NOTE | 2020-12-23 09:15 | RAD_ITS ---
STUDY: X-RAY CHEST REASON FOR EXAM: Male, 70 years old. Hypoxemia -- portable TECHNIQUE: Single AP portable view of the chest. COMPARISON: Comparison is made with prior study 12/18/2020. FINDINGS: A tracheostomy tube is in situ. The tip is at 5.6 cm proximal to the sarah. Since prior study, there has been progressive pleural parenchymal changes at the left lung base. The right lung base is unremarkable. There is no demonstrated pleural abnormality. Normal size heart. Normal mediastinum and carlotta. Normal visualized pulmonary arteries. There is atherosclerotic tortuosity of the aortic arch and descending thoracic aorta. There are diffuse degenerative changes of the visualized thoracic spine. Normal visualized ribs, clavicles, and shoulders. There is no demonstrated abnormality of the visualized soft tissue structures of the upper abdomen. RAD/Chest 1 View (Portable) IMPRESSION: Progressive left pleural effusion with left basilar infiltration and/or atelectasis. Electronically Signed: Santy Santos MD at 14:02 EDT , Service support ,
--- NOTE | 2020-12-23 09:31 | EKG12_ITS ---
Test Reason : A-FLUTTER Blood Pressure : / mmHG Vent. Rate : 095 BPM Atrial Rate : 087 BPM P-R Int : 000 ms QRS Dur : 092 ms QT Int : 388 ms P-R-T Axes : 000 078 064 degrees QTc Int : 487 ms Atrial fibrillation Abnormal ECG When compared with ECG of 23-DEC-2020 10:42, MANUAL COMPARISON REQUIRED, DATA IS UNCONFIRMED Confirmed by RADHA VILLALTA, JEANETH ([id number]), editorial director MODE DARDEN ([id number]) on 12/25/2020 12:40:42 PM Referred By: FAROOQ Confirmed By:JEANETH GARCIA MD
[2020-12-23] MEDS: QUEtiapine 25 MG Tablet GT (10:36)
[2020-12-23 10:41] LABS: Absolute Lymphocyte Count 1.23 X10^3/uL (0.83-4.51); Absolute Neutrophil Count 5.2 X10^3/uL (2.0-7.7); Basophil# 0.05 X10^3/uL; Basophil% 0.7 % (0-1); Eosinophil# 0.28 X10^3/uL; Eosinophils% 3.8 % (0-5); Hematocrit 33.2 % (40-54); Hemoglobin 10.7 g/dL (13.0-16.5); Lymphocyte # 1.23 X10^3/ul (0.83-4.51); Lymphocyte % 16.6 % (19-41); Mean Corp Hgb Conc 32.2 g/dL (32-36); Mean Corpuscular Hgb 32.9 pg (27.0-32.0); Mean Corpuscular Volume 102.2 fL (80-94); Mean Platelet Vol. 9.9 fl (6.2-12.0); Monocyte# 0.66 X10^3/uL; Monocyte% 8.9 % (0-10); NRBC Flagged by Analyzer 0 % (0-5); Neutrophil # 5.15 X10^3/uL (2.7-7.7); Neutrophil % 69.2 % (47-70); Platelet Count 399 K/mm3 (150-450); RBC Distribution Width CV 14.9 % (11.6-14.6); RBC Distribution Width SD 56.1 fl (35.1-43.9); Red Blood Count 3.25 M/mm3 (4.6-6.2); White Blood Count 7.4 K/mm3 (4.4-11.0)
[2020-12-23] MEDS: Menthol/Lanolin/Calamine/Znox 113 GM Tube 1 APPLIC TOPICAL ×2 (10:44→23:13)
[2020-12-23 10:59] LABS: ALB/GLOB Ratio 0.5 RATIO (0.9-2.4); AST(SGOT) 28 U/L (15-37); Alanine Aminotransfer ALT/SGPT 36 U/L (16-61); Albumin, Serum 2.2 g/dL (3.2-5.0); Alkaline Phosphatase 106 U/L (45-117); Anion Gap 9 (5-15); BUN 18 mg/dL (7-18); BUN/Creat Ratio 26.2 RATIO (10-20); Calcium,Total 9.1 mg/dL (8.5-10.1); Chloride 101 mmol/L (98-107); Creatinine, Serum 0.69 mg/dL (0.70-1.30); EST Glomerular Filtration Rate 121 mL/min (>60); Est Glom Filt Rate - Afr Amer 147 mL/min (>60); Estimated Creatinine Clearance 70.97 ml/min; Globulin 4.5 g/dL (2.2-4.2); Glucose 116 mg/dL (74-106); Magnesium 2.4 mg/dL (1.6-2.6); Phosphorus 3.9 mg/dL (2.5-4.9); Potassium 3.7 mmol/L (3.5-5.1); Protein, Total 6.7 g/dL (6.4-8.2); Sodium Level 139 mmol/L (136-145)
[2020-12-23] MEDS: amLODIPine 5 MG Tablet GT (11:41)
--- NOTE | 2020-12-23 12:41 | CT_ITS ---
STUDY: CT CHEST WITHOUT CONTRAST REASON FOR EXAM: Male, 70 years old. Pleural effusion left RADIATION DOSAGE (If Supplied By Facility): CTDIvol = ( 9.67 ) mGy, DLP = ( 324.38 ) mGycm TECHNIQUE: Transaxial imaging was performed without the administration of intravenous contrast material. Multiplanar coronal and sagittal images were reformatted. Individualized dose optimization techniques were used for this CT. COMPARISON: Comparison is made with prior examination dated 05/15/2020. FINDINGS: Small left pleural effusion with atelectasis and/or consolidation in the left lower lobe. Infiltration in the left upper lobe. Mild increased markings in the lateral aspect of the right middle lobe as well as at the right lung base. There is moderate cardiac enlargement. There are calcifications of the coronary arteries. Normal mediastinum. Normal hilar regions. Normal unenhanced pulmonary arteries. There is atherosclerotic calcification of the aortic arch with tortuosity and elongation of the aortic arch and descending thoracic aorta. There are multi-level degenerative changes of the thoracic spine. There is no demonstrated abnormality of the visualized upper abdomen. CT/Chest without Contrast IMPRESSION: Small left pleural effusion with further infiltration and/or atelectasis of the left lower lobe with infiltrate in the left upper lobe. Mild increased markings in the right midlung and right lung base. Electronically Signed: Santy Santos MD at 15:37 EDT , Service support ,
[2020-12-23] MEDS: Jevity 1.5. 1,000 ML Bottle 240 ML GT ×3 (13:45→20:19)
--- NOTE | 2020-12-23 14:13 | CASEMGMT ---
Social Work Spoke with pt's dtr. Answered further questions and followed up from concerns from Team meeting. Dtr spoke with patient advocate and SW working with IDT to implement suggestions. Dtr appreciative. Dtr inquired about having pt transferred to TBI specific centers. SW offered to make referrals to determine eligibility. Dtr agreeable. Referrals made to [facility], [facility] and [facility]. Will continue to follow. Hayde Bansal, SUPERVISOR CURED MEATS DATE PITTER
--- NOTE | 2020-12-23 17:08 | CHAPLAIN ---
Type of Pastoral Visit _x__ Initial Visit ___ Follow-up Visit ___ On-call Visit ___ General Patient Visit ___ Spiritual Assessment ___ Family Conference ___ Bereavement ___ Rapid Response ___ Code Blue ___ Other (describe below) Pastoral Care Referral From ___ Patient ___ Family ___ Nurse ___ Physician ___ Physics Tutor ___ Administrative Resident _x__ Other (describe below) Sacrament/Intervention _x__ Active listening ___ Anointing ___ Sikhism ___ Bereavement ___ Communion ___ Sandy exploration ___ ___ Life review ___ Prayer ___ Reconciliation ___ Sacrament of Sick _x__ Supportive presence ___ Wedding ___ Other (describe below) Pastoral Comments patient is in bed and awake; daughter just arrived minutes earlier than this pizza delivery; pt makes hand motions but is unable to verbalize his thoughts; spoke with pt about support offered; daughter gave information about pt; pt declined a visit at this time but open for another one later
[2020-12-23] MEDS: levoFLOXacin IV 750 MG/150 ML BAG 100 MG IV (19:33)
[2020-12-23] MEDS: QUEtiapine 25 MG Tablet 50 MG GT (19:34)
[2020-12-23 20:02] LABS: M R Staph aureus DNA By PCR Negative (Negative); Probe Check PASS; Specimen Processing Control PASS
--- NOTE | 2020-12-23 20:48 | NURSING ---
pt requiring 1:1 supervision since 19:30. Pulled off C-collar and O2. Attempted to climb out of bed and began to pull out trach, requiring 2 nurses to stop pt. provided bedbath, applied moisturizer, repositioned in bed and given warm blanket. Administered oxy for discomfort. pt currently lying in bed, refuses to allow C-collar to be reapplied and will not keep O2 on. Will continue with 1:1 supervision
--- NOTE | 2020-12-23 22:12 | PCM.RX.CS ---
Consult Pharmacy has been consulted to manage selected antiobiotic: Vancomycin Type of Consult: New start Labs: Sodium 139 mmol/L (136-145) 12/23/20 10:28 Potassium 3.7 mmol/L (3.5-5.1) 12/23/20 10:28 Chloride 101 mmol/L (98-107) 12/23/20 10:28 Carbon Dioxide 29.0 mmol/L (21.0-32.0) 12/23/20 10:28 Anion Gap 9 (5-15) 12/23/20 10:28 BUN 18 mg/dL (7-18) 12/23/20 10:28 Creatinine 0.69 mg/dL (0.70-1.30) L 12/23/20 10:28 Est GFR (MDRD) Af Amer 147 mL/min (>60) 12/23/20 10:28 Est GFR (MDRD) Non-Af 121 mL/min (>60) 12/23/20 10:28 BUN/Creatinine Ratio 26.2 RATIO (10-20) H 12/23/20 10:28 Glucose 116 mg/dL (74-106) H 12/23/20 10:28 Weight used for dosin kg Estimated Creatinine Clearance: 71 Goal Trough: 15-20 mcg/mL Pharmacy Plan for Drug Dosing: Pharmacy Service will continue to monitor and adjust dosing as required. Medications Vancomycin HCl 1,500 mg/ (Sodium Chloride) 530 mls @ 250 mls/hr IV Q24H ANISHA Discontinued Medications Vancomycin HCl 2,000 mg/ (Sodium Chloride) 540 mls @ 250 mls/hr IV X1 ONE Stop: 12/23/20 20:39 Last Admin: 12/23/20 21:48 Dose: 250 mls/hr Documented by: Follow-Up Labs: Trough Vancomycin Labs to be done on [date and time ordered]: 12/25 @ 1701
[2020-12-24] VITALS (14 sets, daily range): BP systolic 80–115; BP diastolic 40–79; PULSE 76–118; RESP 16–20; TEMP 36.4–36.7; O2SAT 88–94
[2020-12-24] MEDS: Haloperidol Lactate 5 MG/ML Vial 2 MG IM (02:26)
--- NOTE | 2020-12-24 02:30 | NURSING ---
NOTED BY LIQUID CENTER ASSEMBLER THAT TRACH WAS PARTIALLY DISLODGED WHILE TRACH TIES REMAIN INTACT. EMILY R.T. UNABLE TO ADVANCE TRACH TO PROPER POSITION. PT'S RESP REMAIN EVEN AND EASY AND NO SIGNS OF DISTRESS NOTED. MENDY, 2ND R.T. ARRIVES AND IS ALSO UNABLE TO ADVANCE TRACH. HOSPITALIST NOTIFIED.
--- NOTE | 2020-12-24 02:45 | NURSING ---
DR IRIZARRY ARRIVES TO PT'S BEDSIDE AND IS ABLE TO ADVANCE A #6 CUFFED SHILEY TRACH TO PROPER POSITION. PT'S PULSE OX IS 86% ON ROOM AIR. 40% TRACH COLLAR WITH HUMIDIFIED O2 APPLIED AND PULSE OX INCREASES TO 93%. TRACH TIES ARE SECURED AND PT IS DEEP SUCTIONED FOR SMALL AMT THICK CREAM COLORED SECRETIONS BY EMILY Gallo TRACH DSG IS IN PLACE. RESP REMAIN EVEN AND EASY.
--- NOTE | 2020-12-24 03:07 | CPS ---
called to help with pt trach-was half way out when arrived-attempted to push back in but hit resistance-repositioned head and tried again with same result. then tried with a size [address] same result[address] dr genao called and was successful-with the 6 shiley-pt suctioned and placed back on 50% aero via trach collar.
[2020-12-24] MEDS: Haloperidol Lactate 5 MG/ML Vial IM ×2 (03:30→11:55)
[2020-12-24] MEDS: Metoprolol Tartrate 25 MG Tablet GT ×3 (04:13→18:07)
[2020-12-24] MEDS: oxyCODONE 5 MG Tablet 10 MG GT ×2 (04:14→08:44)
[2020-12-24] MEDS: Enoxaparin 40 MG/0.4 ML Syringe SC (04:15)
[2020-12-24] MEDS: Jevity 1.5. 1,000 ML Bottle 240 ML GT ×6 (04:15→22:38)
--- NOTE | 2020-12-24 04:32 | NURSING ---
Pt still awake at 04:35 and has not been asleep at all this hs. Pt impulsive and thrashing legs about in bed. 1:1 staff supervision provided to prevent pt from decannulating trache. Oral care with swab provided and mouth moisturizer applied to lips. Bed linens changed after pt was incontinent.
[2020-12-24] MEDS: Acetaminophen 650 MG/20 ML UDC 1000 MG GT ×3 (04:55→22:40)
--- NOTE | 2020-12-24 05:14 | NURSING ---
Pt continues to be impulsive and wanting to get out of here. Staff 1:1 supervision provided to ensure pt doesn't remove oxygen or any tubing. Pt tries to tug and pull at anything he can reach for.
--- NOTE | 2020-12-24 06:03 | NURSING ---
1:1 supervision still with pt. Pt has not been asleep as yet. Still attempting to remove O2. C-Collar ripped off and pt glares at staff when attempting to replace it. Pt mouths the words to take it off.
[2020-12-24] MEDS: Ipratropium/Albuterol Sulfate 3 ML AMPUL.NEB INHALATION ×3 (07:15→19:50)
--- NOTE | 2020-12-24 08:00 | EKG12_ITS ---
Test Reason : MED Blood Pressure : / mmHG Vent. Rate : 095 BPM Atrial Rate : 375 BPM P-R Int : 000 ms QRS Dur : 096 ms QT Int : 366 ms P-R-T Axes : 000 092 053 degrees QTc Int : 459 ms Atrial fibrillation Abnormal ECG When compared with ECG of 18-DEC-2020 11:28, Previous ECG has undetermined rhythm, needs review ST no longer depressed in Lateral leads Confirmed by RADHA VILLALTA, JEANETH ([id number]), video tape editor MODE DARDEN ([id number]) on 12/25/2020 12:41:05 PM Referred By: FAROOQ Confirmed By:JEANETH GARCIA MD
[2020-12-24] MEDS: amLODIPine 5 MG Tablet GT (08:44)
[2020-12-24] MEDS: QUEtiapine 25 MG Tablet GT (08:44)
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
[2020-12-24] MEDS: Menthol/Lanolin/Calamine/Znox 113 GM Tube 1 APPLIC TOPICAL ×2 (12:08→22:58)
[2020-12-24] MEDS: guaiFENesin 10 ML UDC (200MG/10ML) GT ×3 (13:06→23:56)
[2020-12-24] MEDS: morphine (oral solution) 10MG/0.5ML Syringe 5 MG SL ×2 (15:22→23:39)
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
--- NOTE | 2020-12-24 16:30 | CASEMGMT ---
Social Work Received information from that pt pulled out trache again and informed dtr if that happens again, it will not be replace. recommending Palliative/Hospice consult for dtr to get further information. Spoke with dtr - provided emotional and verbal support and discussed dtrs/pts wishes and how SW can continue to assist. Dtr would like to speak with [facility] about programs but also pursue referral to [facility] and get their opinion. Referrals made to [facility] and [facility]. Dtr appreciative. Will continue to follow. RAYA Julian MITER GRINDER OPERATOR
[2020-12-24] MEDS: QUEtiapine 100 MG Tablet GT (20:04)
[2020-12-24] MEDS: levoFLOXacin IV 750 MG/150 ML BAG 100 MG IV (22:37)
[2020-12-25] VITALS (11 sets, daily range): BP systolic 86–119; BP diastolic 52–70; PULSE 71–128; RESP 17–18; TEMP 36.8–37.1; O2SAT 90–98
[2020-12-25] MEDS: Acetaminophen 650 MG/20 ML UDC 1000 MG GT ×3 (07:15→22:22)
[2020-12-25] MEDS: Metoprolol Tartrate 25 MG Tablet GT ×3 (07:16→17:47)
[2020-12-25] MEDS: guaiFENesin 10 ML UDC (200MG/10ML) GT ×3 (07:16→17:40)
[2020-12-25] MEDS: Jevity 1.5. 1,000 ML Bottle 240 ML GT ×6 (07:17→23:09)
[2020-12-25] MEDS: Ipratropium/Albuterol Sulfate 3 ML AMPUL.NEB INHALATION ×4 (07:20→19:31)
[2020-12-25] MEDS: Enoxaparin 40 MG/0.4 ML Syringe SC (07:31)
[2020-12-25 08:03] LABS: Absolute Lymphocyte Count 0.86 X10^3/uL (0.83-4.51); Absolute Neutrophil Count 5.7 X10^3/uL (2.0-7.7); Basophil# 0.04 X10^3/uL; Basophil% 0.5 % (0-1); Eosinophil# 0.25 X10^3/uL; Eosinophils% 3.4 % (0-5); Hematocrit 35.7 % (40-54); Hemoglobin 11.3 g/dL (13.0-16.5); Lymphocyte # 0.86 X10^3/ul (0.83-4.51); Lymphocyte % 11.5 % (19-41); Mean Corp Hgb Conc 31.7 g/dL (32-36); Mean Corpuscular Hgb 32.8 pg (27.0-32.0); Mean Corpuscular Volume 103.8 fL (80-94); Mean Platelet Vol. 9.7 fl (6.2-12.0); Monocyte# 0.57 X10^3/uL; Monocyte% 7.7 % (0-10); NRBC Flagged by Analyzer 0 % (0-5); Neutrophil # 5.69 X10^3/uL (2.7-7.7); Neutrophil % 76.4 % (47-70); Platelet Count 367 K/mm3 (150-450); RBC Distribution Width CV 15.1 % (11.6-14.6); RBC Distribution Width SD 57.5 fl (35.1-43.9); Red Blood Count 3.44 M/mm3 (4.6-6.2); White Blood Count 7.5 K/mm3 (4.4-11.0)
[2020-12-25 08:18] LABS: ALB/GLOB Ratio 0.5 RATIO (0.9-2.4); AST(SGOT) 28 U/L (15-37); Alanine Aminotransfer ALT/SGPT 34 U/L (16-61); Albumin, Serum 2.1 g/dL (3.2-5.0); Alkaline Phosphatase 105 U/L (45-117); Anion Gap 7 (5-15); BUN 14 mg/dL (7-18); BUN/Creat Ratio 16.8 RATIO (10-20); Calcium,Total 8.9 mg/dL (8.5-10.1); Chloride 106 mmol/L (98-107); Creatinine, Serum 0.84 mg/dL (0.70-1.30); EST Glomerular Filtration Rate 97 mL/min (>60); Est Glom Filt Rate - Afr Amer 117 mL/min (>60); Estimated Creatinine Clearance 84.49 ml/min; Globulin 4.5 g/dL (2.2-4.2); Glucose 127 mg/dL (74-106); Potassium 3.7 mmol/L (3.5-5.1); Protein, Total 6.6 g/dL (6.4-8.2); Sodium Level 141 mmol/L (136-145)
[2020-12-25] MEDS: morphine (oral solution) 10MG/0.5ML Syringe 5 MG SL ×2 (08:33→17:38)
[2020-12-25] MEDS: LORazepam 2 MG/ML Bottle 1 MG SL ×2 (08:35→17:37)
[2020-12-25] MEDS: amLODIPine 5 MG Tablet GT (08:41)
[2020-12-25] MEDS: Menthol/Lanolin/Calamine/Znox 113 GM Tube 1 APPLIC TOPICAL ×2 (08:44→22:30)
[2020-12-25] MEDS: QUEtiapine 25 MG Tablet GT (10:25)
--- NOTE | 2020-12-25 11:07 | PCM.PN.BLA ---
Progress Note Afebrile VSS Maintaining appropriate oxygen saturation on RA Discussed with nursing - He is still requiring a sitter and is still getting Haldol PRN for severe agitation. The Vickie came up from pharmacy late today and he had to receive Haldol. When I saw him again at 12:10 he was sleeping and looks peaceful. He arouses briefly. At his dtr's request we removed the [place] J collar to make him more comfortable.......removing it may also help with the agitation. He smiled at me when we removed the collar. I asked him if he would want to live in the event that he would have to live in an extended care facility for the rest of his live and he mouthed no. Reviewed the PT/OT/ST notes Medication list reviewed. Sputum culture is growing Raoultella planticola and it is sensitive to Levaquin. I reviewed Dr. Tabor's note and appreciate his input. VAnco was discontinued. He remains on Levaquin. Platelets are within normal limits. Potassium is 3.7 and the sodium is within normal limits. LFTs are normal. I personally reviewed all lab from today. The white blood cell count is within normal limits with a slight left shift. Hemoglobin is stable at 11.3. I have spoken with Dr. Holm from hospice. The patient's dtr Pennie met with one of the hospice coordinators this morning and she is wondering if he could go to Hospice. She is very resistant to having him go to a SNF. The SW has a call out to [facility] to see if they would accept him to their brain unit and then we would have to clear this with the insurance company. He denies pain and also denies SOB. He is tolerating the bolus TF's. Physical Exam Const Constitutional Narrative: Sleepy but, arouses easily when I stimulate him. He does not appear to be in any distress at the present time. The skin is warm and dry and he is not diaphoretic. He is not fidgety. He grasped my hand weakly when I asked him to. HEENT HEENT Narrative: Dry MM Eyes PERRL, EOMs intact bilaterally, conjunctivae normal and no scleral icterus Neck Neck Narrative: I removed the [place] J collar at his daughter's request. General: trachea midline; Negative for anterior neck swelling Resp Resp Narrative: He is not tachypneic and he has no Accessory Muscle use. He does not appear to be in any respiratory distress and he is at times having John-Vázquez respirations......felix when he is sleeping. Cardio Cardio Narrative: irregular with a mildly increased HR ranging from 99-114 today. Metoprolol was held last night due to a low BP. He had a dose this AM and the systolic is 105/68 and the HR is currently 101. No gallop. He has been in A flutter on the EKG's. GI normal to inspection, nondistended, normoactive bowel sounds and soft to palpation GI Narrative: The PEG site is clean and without discharge. There is no erythema. Extremity Extremity Narrative: no edema. Negative Seven's and Andrea's signs. Skin Rashes: no rashes Assessment & Plan Assessment/Plan (1) Hospital-acquired pneumonia: (2) Encephalopathy acute: (3) Agitation: (4) Dysphagia: (5) COPD (chronic obstructive pulmonary disease): (6) Anemia due to blood loss: (7) Debility: (8) Closed TBI (traumatic brain injury): (9) Presence of externally removable percutaneous endoscopic gastrostomy (PEG) tube: (10) Status post tracheostomy: (11) Hypoxemia: (12) History of ETOH abuse: (13) Typical atrial flutter: PLAN: 1. Continue Levaquin 2. He could have an empyema and if this is the case he would likely require decortication 3. Increase the Seroquel in the AM to 50 mg and continue the PRN Haldol. 4. Cap the trach and apply O2 via a face mask and see if he is going to be able to get adequate oxygenation in the event he pulls the trach out again 5. remove the [place] J collar at the daughter's request. 6. The SW and I talked again today with Pennie and she would not want to put him through a surgery if he has an empyema. If he pulls the trach out we are not going to replace it. There are meds in place to give to keep him if he has respiratory distress if he pulls the tube out. She understands that we will be discontinuing the sitter today. 7. I have given permission for his grandchildren to come in once to visit with him and they will all need to be masked. The youngest is [address] Holm has agreed to take Bill in the inpatient hospice unit if he has significant respiratory distress, if he extubates himself. 9. Pennie understands that he may rally if he pulls the tube out and hospice can not keep him in the inpt unit if stabilizes. She reiterates that he would not want to live like this and When I asked him today if he would want to live if he would spend the rest of his life in a NH he clearly said no. I spent 60 minutes coordinating care for this patient and meeting with his daughter and the SW to discuss his current condition and review options for care. Visit Charges Inpatient E&M: 91514 Subs Hosp L3
--- NOTE | 2020-12-25 14:50 | PCM.PN.INT ---
Assessment & Plan Assessment/Plan (1) Hospital-acquired pneumonia: (2) Encephalopathy acute: (3) COPD (chronic obstructive pulmonary disease): (4) Ribs, multiple fractures: (5) SDH (subdural hematoma): (6) Persistent atrial fibrillation: PLAN: RECOMMENDATIONS: 1. Continue Levaquin to complete a 7-day course 2. Attempt capping trials with Ventimask for oxygenation 3. Await goals of therapy per family discussion 4. Wean oxygen as tolerated 5. Call with any further issues. Will sign off from a pulmonary perspective IMPRESSIONS: 1. Chronic hypoxic respiratory failure complicated by healthcare associated pneumonia with loculated effusion Review of patient's CT scan does show some emphysematous changes, but of note patient also has what appears to be a loculated left pleural effusion. Clinical suspicion that this may be containing blood as patient has had multiple rib fractures in the past. It does not appear that a thoracentesis is compatible with patient's goals of therapy. Patient is growing a gram-negative in his sputum. Levaquin is likely sufficient. If infection involves the pleural fluid, patient would need a cardiothoracic evaluation if the plan was to remain aggressive. Labs can be suggested if IR is willing to make an attempt. 2. Tracheostomy Patient is able to vocalize somewhat with a tracheostomy in place. This appears to be a Shiley 6?0 uncuffed trach and bedside sitter is reporting the patient has been handling secretions without a need for inline suctioning. Attempt a capping trial, but patient would require at least a nasal cannula to maintain saturations. This may at least give some indication to family on how well patient would do if he were to remove his trach. 3. Agitation/metabolic encephalopathy/TBI/multiple fractures/history of alcohol and nicotine dependence/CAD Complicates care, management, recovery and prognosis. Agree with the use of atypicals. Would avoid benzodiazepines if possible. If patient does have glasses at baseline, placement of these could be helpful in avoiding confusion. Subjective Subjective Patient did well overnight. Patient was able to have a [place] valve and was saturating on 8 L during my evaluation. Patient denied any pain. Discussed with the rehab physician about plan of care. Objective Data Objective Data Vital Signs: Vital Signs Temp Pulse Resp BP Pulse Ox 36.8 C 110 H 18 110/68 98 12/25/20 07:57 12/25/20 13:52 12/25/20 11:35 12/25/20 13:52 12/25/20 13:52 Oxygen Flow Rate (L/min) 8 Oxygen Delivery Method Trach Collar Weight: 79.3 kg Body Mass Index (BMI) 25.0 Intake & Output: Intake and Output for Last 24 Hours 12/23/20 12/24/20 12/25/20 23:59 23:59 23:59 Intake Total 2527 / 2528 1594 / 1594 590 / 590 Balance 2527 / 2528 1594 / 1594 590 / 590 Medical Nutrition Assessment Dietitian: Malnutrition Criteria Met Start: 12/18/20 17:32 Freq: Status: Active Protocol: Document 12/22/20 16:04 RMA (Rec: 12/22/20 16:04 RMA [id number]) Nutrition Malnutrition Evidence of Malnutrition Exists Yes Malnutrition (severe): Acute Illness/Injury Evidenced By Suboptimal Energy Intake ( Severe),Weight Loss (Severe) Intake Problem Enteral Nutrition Administration Inconsistent w/ Needs Etiology related to calorie/protein adequacy and malnutrition Signs/Symptoms as evidenced by R buttocks pressure injury and wt loss~2 Kg since admit; TF meeting~70% estimated edu/energy needs and ~65% estimated protein needs. Status Active Problem Clinical Problem Acute Disease or Injury Related Malnutrition Etiology Severe protein/calorie malnutrition in the context of acute injury/trauma related to inadequate energy intake and increased energy expenditure Signs/Symptoms as evidenced by ~15% wt loss, inability to take PO nutrition and meeting less than 50% estimated nutrition needs prior to admit. Status Active Problem Recommendation Dietitian Recommendations/Changes 1.) Pt to remain NPO with TF support meeting~100% estimated nutrition needs. 2.) Weight QOD--discussed with nurse. 3.) For continuous TF, Jevity 1.5 edu @ 20ml/hr and increase as tolerated by 10ml/ hr Q 6-8 hours to goal rate 60ml/hr with 175 ml water flush Q 4 hours. TF at goal rate with water flushes will provide 2160 kcal, 92 gm protein and 2145 ml free water per day. 4.) As TF transitions to bolus TF, recommend 240ml Jevity 1 .5 Edu bolus 6 times per day with 80ml water flush before and after each bolus to provide 2160 kcal, 92 gm pro and 2055 ml free water per day . 5.) Will monitor TF tolerance as established, wt, labs and follow-up. Lab / Micro Data Result Diagrams: 12/25/20 07:45 12/25/20 07:45 Labs: Laboratory Results - last 24 hr 12/25/20 07:45: WBC 7.5, RBC 3.44 L, Hgb 11.3 L, Hct 35.7 L, MCV 103.8 H, MCH 32.8 H, MCHC 31.7 L, RDW Std Deviation 57.5 H, RDW Coeff of Maria Elena 15.1 H, Plt Count 367, MPV 9.7, Immature Gran % (Auto) 0.500, Neut % (Auto) 76.4 H, Lymph % (Auto) 11.5 L, Jack % (Auto) 7.7, Eos % (Auto) 3.4, Baso % (Auto) 0.5, Absolute Neuts (auto) 5.7, Absolute Lymphs (auto) 0.86, Nucleated RBC % 0 12/25/20 07:45: Sodium 141, Potassium 3.7, Chloride 106, Carbon Dioxide 28.0, Anion Gap 7, BUN 14, Creatinine 0.84, Estim Creat Clear Calc 84.49, Est GFR (MDRD) Af Amer 117, Est GFR (MDRD) Non-Af 97, BUN/Creatinine Ratio 16.8, Glucose 127 H, Calcium 8.9, Total Bilirubin 0.60, AST 28, ALT 34, Alkaline Phosphatase 105, Total Protein 6.6, Albumin 2.1 L, Globulin 4.5 H, Albumin/Globulin Ratio 0.5 L Micro: Microbiology 12/23/20 16:45 Sputum, Tracheal Aspirate Gram Stain - Final 12/23/20 16:45 Sputum, Tracheal Aspirate Respiratory Culture - Final Raoultella planticola Physical Exam Const alert and oriented x3 General Appearance: cooperative HEENT normocephalic Eyes PERRL and EOMs intact bilaterally Neck no JVD and no carotid bruits Neck Narrative: Shiley 6?0 uncuffed trach with PMV. C-collar in place General: tracheostomy present Resp normal respiratory effort, normal air movement and clear to auscultation bilaterally Auscultation: diminished lung sounds left and egophony Percussion: dullness Upper: left and Mid: left Cardio regular rate Rhythm: abnormal rhythm irregularly irregular GI normal to inspection, nondistended, normoactive bowel sounds, non-tender and non-distended GI Narrative: PEG tube present. Extremity normal capillary refill General Extremity: Negative for clubbing, cyanosis or edema Skin no rashes or lesions noted General Skin Exam: no breakdown Psych affect normal Appearance: appropriate Charges/Coding Visit Charges Inpatient E&M: 74221 Subs Hosp L2
--- NOTE | 2020-12-25 15:55 | CASEMGMT ---
Addendum entered by Hayde Bansal 12/25/20 16:46: Followed up with IDT since capping - pt tolerating well, participated in therapy. Pt still not wanting O2 nasal cannula on, but resting comfortably at this time. Dtr in room, and /son came to visit as SW was exiting. Offered continued support. Will continue to follow. Original Note: Social Work Spoke with dtr to follow up on pt's plans. Dtr met with hospice but had further questions for Dr. Alcala to calrify pt's living will, before making decisions. SW spoke with Dr. Huber and suggested to meet with dtr to discuss further. Dtr available for meeting. Dr. Alcala, this worker and dtr met and discussed at length medical measures, recovery, current options, DC options, etc. Overall, RU unable to continue with 1:1 sitter, however, pt keeps pulling out trache and agitated. Dtr agreed to if trache is pulled out again to not replace it. Dtr conflicted with decision on transferring to TBI unit, if accepted, or hospice. See Dr. Alcala's note for further medical discussion. This worker provided verbal and emotional support throughout discussion. At the conclusion of the meeting, it was agreed upon that to cap trache, put on venti mask for O2, DC sitter, and proceed with plan according out those outcomes. If trache is out and pt is in distress, pt is IPU appropriate and can tx when needed. If pt is not stable enough for tx, pt can be kept comfortable surrounded by family in [place]. Dtr no longer wants to pursue TBI units. Dtr understands if pt tx to IPU and symptoms are managed, pt would need to DC from that unit. stated home is not recommended as pt is so agitated and requires high level of care. Dtr conflicted as she wants to follows pt's wishes of not being in an ECF. All parties agreed to take it a step at a time and determine plan as needed. SW offered continued support. Dtr very appreciative. Will continue to follow. Hayde Bansal, MEDIA MANAGER [employer] TRUCK DRIVER
--- NOTE | 2020-12-25 18:08 | CPS ---
Patient was capped today 12/25/2020 at 1430.
--- NOTE | 2020-12-25 19:32 | NURSING ---
daughter kai requesting to bring ing her daughter after visiting hours, to visit patient. dr durham here and made known of daughters request . dr durham agreed that the visit could take place when that daughter got here but could not stay after 2100 d/t pt needed his rest this staff member attempted to call the daughter at the [phone] number and was answered by a man that said that he had been receiving (weird calls for the last 2 weeks.) rn aware of conversation 1944 return call from daughter and made aware of the conversation with dr durham and the medical social consultant was up dated on the situation. daughter stated that her number has been getting crossed with another number and she had her ringer off is to why she did not answer her phone. all questions answered at this time
--- NOTE | 2020-12-25 19:48 | CASEMGMT ---
SOCIAL WORK Call to nursing to discuss patient's status. Nurse reports daughter is not present at this time. Prior to daughter leaving requested to bring in patient's granddaughter. Nursing spoke with who approved, but requests short visit and leave by 9pm. Attempted to contact patient's daughter to update, no answer, voicemail says Jaden. Did not leave message. Hasmukh Ceballos, [employer] MANAGER, HYDROLOGIST
[2020-12-25] MEDS: levoFLOXacin IV 750 MG/150 ML BAG 100 MG IV (22:19)
[2020-12-25 22:26] LABS: Vancomycin, Trough Level 2.6 ug/mL (5.0-15.0)
[2020-12-25] MEDS: QUEtiapine 100 MG Tablet GT (22:30)
[2020-12-25] MEDS: 0.9% Saline Lock 10 ML Syringe IV (22:53)
[2020-12-26] VITALS (8 sets, daily range): BP systolic 82–123; BP diastolic 63–75; PULSE 76–83; RESP 16–17; TEMP 36.5–36.6; O2SAT 88–89
[2020-12-26] MEDS: Metoprolol Tartrate 25 MG Tablet GT ×4 (00:25→18:00)
[2020-12-26] MEDS: guaiFENesin 10 ML UDC (200MG/10ML) GT ×4 (00:26→18:00)
--- NOTE | 2020-12-26 02:34 | NURSING ---
2300 12/25 daughter call and was updated on pt as well that pt refused to keep O2 at this time but was 92% on ra .
--- NOTE | 2020-12-26 02:36 | NURSING ---
pt has maintained the SPO2 of 90-92% on room air
[2020-12-26] MEDS: Jevity 1.5. 1,000 ML Bottle 240 ML GT ×6 (05:21→19:50)
[2020-12-26] MEDS: Enoxaparin 40 MG/0.4 ML Syringe SC (05:22)
[2020-12-26] MEDS: Acetaminophen 650 MG/20 ML UDC 1000 MG GT ×3 (05:22→19:48)
--- NOTE | 2020-12-26 05:37 | NURSING ---
0515 staff to see pt and give am medications and am care , pt SPO2 was 88% on room air and pt refused to have O2 applied. pt shook his head no and pushed staff hand away. rn came and tried to get pt to put O2 on and pt still refused. trtach care completed and pt would not leave gauze dressing around the trach site but was thoroughly cleaned as much as pt would let staff to do it. lopressor given as per order. pt reports that he is tired when asked but then attempts to get oob . time spent with pt was over 50 minutes
[2020-12-26] MEDS: morphine (oral solution) 10MG/0.5ML Syringe 5 MG SL ×3 (06:00→18:12)
[2020-12-26] MEDS: LORazepam 2 MG/ML Bottle 1 MG SL ×2 (06:02→13:02)
--- NOTE | 2020-12-26 06:09 | NURSING ---
Staff applied heelbos to bilat feet d/t redness to heels. Pt refused to apply O2 at this time. Pt SPO2 has remained at 88%
--- NOTE | 2020-12-26 06:56 | NURSING ---
RT WAS IN ROOM AND PT REFUSED BREATHING TREATMENT. PT IS THROWING LEGS OVER RT SIDE OF BED STATING HE WANTS TO GO TO [place] WITH A FRIEND. STAFF URGED PT TO APPLY O2 BUT PT WAS RESISTANT AND PULLED HEAD AWAY FROM O2 STAFF TRIED TO APPLY.
[2020-12-26] MEDS: amLODIPine 5 MG Tablet GT (07:31)
[2020-12-26] MEDS: QUEtiapine 25 MG Tablet 50 MG GT (07:31)
[2020-12-26] MEDS: Menthol/Lanolin/Calamine/Znox 113 GM Tube 1 APPLIC TOPICAL ×2 (07:31→19:49)
--- NOTE | 2020-12-26 08:54 | CASEMGMT ---
Social Work Followed up with nursing on update for pt. Saw pt in room - resting comfortably in bed. Will continue to follow. Hayde Bansal, SPEEDER WORKER SVP BUSINESS DEVELOPMENT
--- NOTE | 2020-12-26 12:00 | NURSING ---
Patient had decannulated self this AM. Dr. Alcala aware, Respiratory Therapy aware and they will notify [place], daughter Pennie aware. Patient is 88-89% RA with no signs of respiratory distress noted. OT ambulated patient short bursts of steps and he remained 89% RA but SOB with exertion noted. This whole morning, nursing has attempted to put oxygen on patient and he has refused and shoved this nurses hands away multiple times. Will monitor. Patient has been irritable, confused, restless, and agitated. Alert to self and at times to place.
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
[2020-12-26] MEDS: Haloperidol Lactate 5 MG/ML Vial IM (14:54)
--- NOTE | 2020-12-26 14:55 | NURSING ---
PRN Haldol IM given for increased agitation. Patient combative with staff and attempting to climb OOB. Daughter present to sit with father. Patient told daughter to get out and daughter was in tears. Patient has been placed in a [facility] bed per order and mats at the bedside. Patient attempting to pull out peg tube and it is sutured in place. abdominal binder in place.
[2020-12-26] MEDS: QUEtiapine 100 MG Tablet GT (19:48)
[2020-12-26] MEDS: levoFLOXacin 750 MG Tablet GT (19:48)
[2020-12-26] MEDS: Mirtazapine 15 MG Tablet PO (19:49)
[2020-12-26] MEDS: 0.9% Saline Lock 10 ML Syringe IV (19:55)
--- NOTE | 2020-12-26 20:21 | NURSING ---
Oral care provided by staff with mouth swab. Pt fought off oral care and clamped down on swab with mouth and tried to grab swab from staff in a pulling action. Pt informed of the importance of frequent oral care but jerked head away from staff to prevent further adequate care.
[2020-12-27] VITALS (7 sets, daily range): BP systolic 101–124; BP diastolic 56–86; PULSE 67–89; RESP 17–18; TEMP 36.2–36.4; O2SAT 89–91
[2020-12-27] MEDS: Metoprolol Tartrate 25 MG Tablet GT ×4 (00:33→17:28)
[2020-12-27] MEDS: guaiFENesin 10 ML UDC (200MG/10ML) GT ×4 (00:33→17:28)
[2020-12-27] MEDS: morphine (oral solution) 10MG/0.5ML Syringe 5 MG SL ×3 (03:34→17:28)
[2020-12-27] MEDS: Haloperidol Lactate 5 MG/ML Vial IM ×3 (03:38→18:18)
--- NOTE | 2020-12-27 03:55 | NURSING ---
0325 PT NOW AWAKE AND KICKING LEGS OUT OVER THE SIDE OF THE BED . STAFF CLEANED FOR INCONTINENCE OF URINE AND CHANGED BED LINENS . PT CONTINUED TO GET OUT OF THE BED AND THEN TOLD STAFF TO GET THE FUCK OFF OF HIM. AM CARE GIVEN AT THIS TIME WELL AND PT CONTINUED TO TELL STAFF TO GET OFF. PT REPORTS THAT HIS BACK HURTS AND PT WAS MEDICATED WITH ROXANOL. PT AGITATION STARTED TO ESCALATE AND THEN HALDOL WAS GIVEN WELL. PT REPOSITIONED FOR COMFORT TO GET HIM OFF HIS BACK AND BOTTOM, PT MOVE TO WERE HE WAS LAYING BESIDE THE PILLOW. PT TOOK HIS HEELBOS OFF AND THREW THEM ACROSS THE ROOM. PT WAS COMPLIANT WITH ORAL CARE AT THIS TIME AND LET STAFF CLEAN HIS MOUTH WITH THE SPONGE . 0400 PT REMAINS RESTLESS IN THE BED, THEN REQUESTED TO HAVE LOTION APPLIED TO HIS FEET, STAFF COMPLIED TIME SPENT WITH PT 45MIN
--- NOTE | 2020-12-27 04:01 | NURSING ---
Restlessness continues even after cleaning pt up from LG urine incontinence. Pt medicated for anxiety and pain but continues to throw legs over bedside and ask staff to Come on, let's go! Pt removed heelbos staff put in place to ease pressure to heels. Pt c/o back pain but pulls himself up be side rails of HiLo bed, wincing the whole time. Staff in room at this time to ensure safety in hopes meds will assist pt into calming down. Pt oriented to time of day and encouraged to get some sleep.
[2020-12-27] MEDS: Jevity 1.5. 1,000 ML Bottle 240 ML GT ×6 (05:01→21:07)
[2020-12-27] MEDS: Enoxaparin 40 MG/0.4 ML Syringe SC (05:01)
[2020-12-27] MEDS: Acetaminophen 650 MG/20 ML UDC 1000 MG GT ×3 (05:02→22:31)
[2020-12-27] MEDS: QUEtiapine 25 MG Tablet GT (05:02)
--- NOTE | 2020-12-27 05:19 | NURSING ---
Pt found in bed restless and removing YOSELIN hose. Pt attempting to get up and out of bed. Pt holding on to side rail and telling staff he is going over there!, while pointing at the window. Pt appears to be reclining with eyes closed for now and staff will monitor closely for pt safety.
--- NOTE | 2020-12-27 06:59 | NURSING ---
pt put motion and time study teacher light and staff noted that pt was incontinent, pt was changed and cleansed as well as bed linens. pt was cooperated with completed the task, but refused breathing tx by CPS
[2020-12-27] MEDS: amLODIPine 5 MG Tablet GT (08:29)
[2020-12-27] MEDS: Menthol/Lanolin/Calamine/Znox 113 GM Tube 1 APPLIC TOPICAL ×2 (08:36→21:07)
--- NOTE | 2020-12-27 10:41 | NURSING ---
Patient extremely restless despite IM haldol given prior. Sitting up in bed, throwing legs over the side of bed, yelling out. OT and nursing attempted to get patient OOB and he was not cooperative and kept throwing self back in bed despite directions. Spo2 89% RA. Patient will not leave dressing on over prior trach site. Refused ST session this morning. Patient has been restless this whole morning despite multiple interventions. Refused toileting offerings this AM. Refused mouth care. Refused oxygen. Refused halina hose.
--- NOTE | 2020-12-27 11:46 | NURSING ---
Daughter given update on how patient has been, he has refused OT and ST today, continues with restlessness but agitation is no longer there. Daughter requested patient to not be on the directory of the hospital and registration notified.
[2020-12-27] MEDS: QUEtiapine 25 MG Tablet 50 MG GT (15:57)
[2020-12-27] MEDS: levoFLOXacin 750 MG Tablet GT (21:06)
[2020-12-27] MEDS: Mirtazapine 15 MG Tablet PO (21:06)
[2020-12-27] MEDS: QUEtiapine 100 MG Tablet GT (22:34)
[2020-12-28] VITALS (10 sets, daily range): BP systolic 84–113; BP diastolic 59–79; PULSE 94–102; RESP 16–17; TEMP 36.3–36.6; O2SAT 90–92
[2020-12-28] MEDS: guaiFENesin 10 ML UDC (200MG/10ML) GT ×4 (00:15→18:09)
[2020-12-28] MEDS: Metoprolol Tartrate 25 MG Tablet GT ×4 (00:15→18:09)
[2020-12-28] MEDS: Haloperidol Lactate 5 MG/ML Vial IM ×2 (02:56→10:30)
--- NOTE | 2020-12-28 03:00 | NURSING ---
PT HAS RIPPED OFF ATTENDS AND PUTTING LEG OVER EDGE OF BED. TRYING TO RIP OFF WRISTBANDS CURRENTLY. APPEARS TO BE GETTING INCREASINGLY AGITATED. MEDICATED. REPOSITIONED. PT C/O PAIN WITH REPOSITIONING IN HEAD AND SHOULDERS.
[2020-12-28] MEDS: morphine (oral solution) 10MG/0.5ML Syringe 5 MG SL ×2 (03:14→10:30)
[2020-12-28] MEDS: QUEtiapine 25 MG Tablet 50 MG GT ×2 (05:11→12:58)
[2020-12-28] MEDS: Enoxaparin 40 MG/0.4 ML Syringe SC (05:11)
[2020-12-28] MEDS: Acetaminophen 650 MG/20 ML UDC 1000 MG GT ×3 (05:12→21:00)
[2020-12-28] MEDS: Jevity 1.5. 1,000 ML Bottle 240 ML GT ×6 (05:12→21:01)
[2020-12-28] MEDS: 0.9% Saline Lock 10 ML Syringe IV ×2 (05:18→20:57)
[2020-12-28] MEDS: amLODIPine 5 MG Tablet GT (10:30)
[2020-12-28] MEDS: Menthol/Lanolin/Calamine/Znox 113 GM Tube 1 APPLIC TOPICAL ×2 (10:57→21:01)
[2020-12-28] MEDS: Mirtazapine 15 MG Tablet PO (21:01)
[2020-12-28] MEDS: Senna/Docusate Sodium 1 Tablet 2 TABLET GT (21:01)
[2020-12-28] MEDS: QUEtiapine 100 MG Tablet GT (21:01)
[2020-12-28] MEDS: levoFLOXacin 750 MG Tablet GT (21:01)
[2020-12-29] VITALS (11 sets, daily range): BP systolic 83–111; BP diastolic 58–73; PULSE 78–96; RESP 16–20; TEMP 36.1–36.6; O2SAT 88–92
[2020-12-29] MEDS: guaiFENesin 10 ML UDC (200MG/10ML) GT ×5 (00:13→23:30)
[2020-12-29] MEDS: Metoprolol Tartrate 25 MG Tablet GT ×5 (00:13→23:30)
[2020-12-29] MEDS: Acetaminophen 650 MG/20 ML UDC 1000 MG GT ×2 (06:31→15:12)
[2020-12-29] MEDS: Jevity 1.5. 1,000 ML Bottle 240 ML GT ×6 (06:32→21:04)
[2020-12-29] MEDS: Enoxaparin 40 MG/0.4 ML Syringe SC (06:32)
[2020-12-29] MEDS: QUEtiapine 25 MG Tablet 50 MG GT (06:32)
[2020-12-29] MEDS: amLODIPine 5 MG Tablet GT (08:18)
[2020-12-29] MEDS: Haloperidol Lactate 5 MG/ML Vial IM (08:18)
[2020-12-29] MEDS: Menthol/Lanolin/Calamine/Znox 113 GM Tube 1 APPLIC TOPICAL ×2 (08:19→21:03)
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
[2020-12-29] MEDS: morphine (oral solution) 10MG/0.5ML Syringe 5 MG SL ×2 (11:00→21:55)
--- NOTE | 2020-12-29 14:21 | CASEMGMT ---
Social Work IDT met with patient and dtr for Team meeting. Discussed patient's progress in therapy and nursing. Team discussed pt is not consistent with abilities and participating in therapy. IDT recommending discharge once DC destination is determined as he is no longer appropriate for this unit. recommending specialty TBI unit for pt. Dtr agreeable and requesting referral to [facility]. Referral made. Will continue to follow. RAYA JulianW
[2020-12-29] MEDS: QUEtiapine 100 MG Tablet GT ×2 (15:14→21:03)
--- NOTE | 2020-12-29 16:49 | TELEMED_ITS ---
SOC Telemed has confirmed receipt of a request for visit. This document confirms receipt of the order initiating the consult. To find the results of the consultation, please view the patient's reports for the scanned Telemed Consult.
--- NOTE | 2020-12-29 17:06 | EKG12_ITS ---
Test Reason : AFIB/FLUTTER/MEDS Blood Pressure : / mmHG Vent. Rate : 092 BPM Atrial Rate : 125 BPM P-R Int : 000 ms QRS Dur : 086 ms QT Int : 366 ms P-R-T Axes : 000 072 048 degrees QTc Int : 452 ms Atrial fibrillation Abnormal ECG Confirmed by RICHARD VILLALTA, MARSHALL ([id number]), technical editor MODE DARDEN ([id number]) on 12/30/2020 10:15:56 AM Referred By: [id number] Confirmed By:MARSHALL RAMOS MD
[2020-12-29] MEDS: levoFLOXacin 750 MG Tablet GT (21:03)
[2020-12-30] VITALS (8 sets, daily range): BP systolic 89–99; BP diastolic 59–66; PULSE 78–109; RESP 16–18; TEMP 36.4–36.7; O2SAT 90–91
[2020-12-30] MEDS: morphine (oral solution) 10MG/0.5ML Syringe 5 MG SL (01:55)
--- NOTE | 2020-12-30 03:14 | NURSING ---
Reviewed and agree with WARP TIER documentation and assessment charting.
[2020-12-30] MEDS: Jevity 1.5. 1,000 ML Bottle 240 ML GT ×6 (06:38→21:59)
[2020-12-30] MEDS: Metoprolol Tartrate 25 MG Tablet GT ×3 (06:39→21:52)
[2020-12-30] MEDS: guaiFENesin 10 ML UDC (200MG/10ML) GT ×3 (06:40→18:22)
[2020-12-30] MEDS: QUEtiapine 100 MG Tablet GT ×3 (06:40→21:48)
[2020-12-30] MEDS: Enoxaparin 40 MG/0.4 ML Syringe SC (06:42)
[2020-12-30] MEDS: Sertraline 50 MG Tablet GT (09:18)
[2020-12-30] MEDS: Folic Acid 1 MG Tablet GT (09:18)
[2020-12-30] MEDS: Thiamine Hydrochloride 100 MG Tablet GT (09:18)
[2020-12-30] MEDS: amLODIPine 5 MG Tablet GT (09:18)
[2020-12-30] MEDS: Menthol/Lanolin/Calamine/Znox 113 GM Tube 1 APPLIC TOPICAL ×2 (09:29→21:59)
--- NOTE | 2020-12-30 09:33 | PCM.PN.BLA ---
Progress Note Afebrile VSS - The BP dropped to 83/58 last night and currently is 98/66. HR this morning is 109. Amlodipine was discontinued yesterday. Maintaining an oxygen saturation 88 to 92% on room air. Intake yesterday was 2560. Good urine OP but, he is incontinent. Discussed with nursing - no problems that need addressed Reviewed the PT/OT/ST notes Medication list reviewed. He is currently working with OT and is able to get up from a chair and ambulate with the FWW. Fatigues easily. Gave us a thumbs up when we were talking with him EEG was just completed. SOC has been consulted to read the EEG Denies pain. Denies SOB. He is tried. Physical Exam Const Constitutional Narrative: very drowsy at times but, in general he is less agitated and more cooperative with therapy HEENT HEENT Narrative: His voice is very soft and does not project well Eyes PERRL, EOMs intact bilaterally, conjunctivae normal and no scleral icterus Neck No nuchal rigidity and no JVD General: Negative for lymphadenopathy Resp Resp Narrative: Diminished in the lower lobes, felix in the left base. I do not appreciate any aegophony in the left base today. He is not coughing. He clears his throat at times. He is not tachypneic and he has no accessory muscle use. Cardio S1 normal heart sound, S2 normal heart sound and no gallops Cardio Narrative: irregular with HR of 109 this AM. No bradycardia and no significant tachycardia.....mostly the HR is WNL EKG shows no QT prolongation Extremity no calf tenderness and no pedal edema Skin General Skin Exam: no breakdown Rashes: no rashes Assessment & Plan Assessment/Plan (1) Delirium: PLAN: 1. EEG was done today and we are waiting for the read 2. Starting Depakote 250 mg BID to help stabilize the mood 3. BP is too low for pt with severe TBI at 70 YOA. Midodrine 10 mg now. Change the Lopressor to Q 8H. Fluid bolus now. 4. CMP, CBC with diff, ESR, CRP, TSH now. 5. Continue the Seroquel 6. Waiting to hear from [facility] about transfer to their brain injury unit. 7. Today makes the 7th dose of Levaquin. Will start Omnicef for another 7 days for suspected empyema. CXR shows improvement in the R base but there is still consolidation and/or atelectasis and/or effusion or all 3 in the left base. He still has an elevated ESR and CRP and there is still a mild left shift although the WBC is normal. Visit Charges Inpatient E&M: 14625 Subs Hosp L2
[2020-12-30] MEDS: Midodrine HCl 5 MG Tablet 10 MG PO (10:32)
[2020-12-30] MEDS: Divalproex Sodium 250 MG Tablet PO ×2 (10:32→18:22)
[2020-12-30 10:35] LABS: Erythrocyte Sedimentation Rate 43 mm/hr (0-20)
[2020-12-30 10:37] LABS: Absolute Lymphocyte Count 1.12 X10^3/uL (0.83-4.51); Absolute Neutrophil Count 6.6 X10^3/uL (2.0-7.7); Basophil# 0.05 X10^3/uL; Basophil% 0.6 % (0-1); Eosinophil# 0.14 X10^3/uL; Eosinophils% 1.6 % (0-5); Hematocrit 37.6 % (40-54); Hemoglobin 12.1 g/dL (13.0-16.5); Lymphocyte # 1.12 X10^3/ul (0.83-4.51); Lymphocyte % 13.1 % (19-41); Mean Corp Hgb Conc 32.2 g/dL (32-36); Mean Corpuscular Volume 102.5 fL (80-94); Monocyte# 0.61 X10^3/uL; Monocyte% 7.2 % (0-10); NRBC Flagged by Analyzer 0 % (0-5); Neutrophil # 6.55 X10^3/uL (2.7-7.7); Neutrophil % 76.9 % (47-70); Platelet Count 370 K/mm3 (150-450); RBC Distribution Width CV 15.5 % (11.6-14.6); RBC Distribution Width SD 58.6 fl (35.1-43.9); Red Blood Count 3.67 M/mm3 (4.6-6.2); White Blood Count 8.5 K/mm3 (4.4-11.0)
[2020-12-30 10:55] LABS: ALB/GLOB Ratio 0.5 RATIO (0.9-2.4); AST(SGOT) 28 U/L (15-37); Alanine Aminotransfer ALT/SGPT 36 U/L (16-61); Albumin, Serum 2.3 g/dL (3.2-5.0); Alkaline Phosphatase 120 U/L (45-117); Anion Gap 7 (5-15); BUN 19 mg/dL (7-18); BUN/Creat Ratio 21.2 RATIO (10-20); Calcium,Total 9.1 mg/dL (8.5-10.1); Chloride 103 mmol/L (98-107); EST Glomerular Filtration Rate 89 mL/min (>60); Est Glom Filt Rate - Afr Amer 108 mL/min (>60); Estimated Creatinine Clearance 78.86 ml/min; Globulin 4.9 g/dL (2.2-4.2); Glucose 122 mg/dL (74-106); Potassium 4.2 mmol/L (3.5-5.1); Protein, Total 7.2 g/dL (6.4-8.2); Sodium Level 138 mmol/L (136-145)
[2020-12-30 10:58] LABS: Thyroid Stim Hormone (TSH) 2.01 uIU/mL (0.358-3.74)
--- NOTE | 2020-12-30 12:10 | RAD_ITS ---
STUDY: X-RAY CHEST REASON FOR EXAM: Male, 70 years old. Pneumonia TECHNIQUE: PA and lateral views of the chest. Limited by rotation COMPARISON: 12/23/2020. FINDINGS: Exam is limited by rotation. Similar prominent dense left base opacity/effusion There is borderline cardiomegaly. Normal mediastinum and carlotta. Normal visualized pulmonary arteries. Normal visualized aortic arch and descending thoracic aorta. Normal visualized thoracic spine. Normal visualized ribs, clavicles, and shoulders. There is no demonstrated abnormality of the visualized soft tissue structures of the upper abdomen. RAD/Chest PA and Lateral IMPRESSION: Dense left basilar opacity likely represents effusion/atelectasis. Superimposed pneumonia should be excluded clinically. Electronically Signed: Lucio Steele MD at 15:42 EDT Tel , Service support ,
--- NOTE | 2020-12-30 14:03 | CASEMGMT ---
Social Work Call placed to [facility] to check on status of referral. JUAN ANTONIO spoke with Chante who states referral has been given to physician for review and reponse can be expected in 24 hours. Phone call to pt lamont Casper and updated. JUAN ANTONIO will continue to follow. Manav VAZQUEZ
[2020-12-30] MEDS: Cefdinir Susp 125 MG/5 ML PO.SYRINGE 300 MG GT ×2 (14:17→21:53)
[2020-12-31] MEDS: guaiFENesin 10 ML UDC (200MG/10ML) GT ×3 (00:42→17:00)
[2020-12-31] MEDS: morphine (oral solution) 10MG/0.5ML Syringe 5 MG SL ×3 (03:55→20:01)
[2020-12-31] MEDS: Enoxaparin 40 MG/0.4 ML Syringe SC (06:17)
[2020-12-31] MEDS: QUEtiapine 100 MG Tablet GT ×3 (06:18→20:47)
[2020-12-31 06:20] VITALS: BP 110/63; PULSE 91
[2020-12-31] MEDS: Metoprolol Tartrate 25 MG Tablet GT ×3 (06:20→20:47)
[2020-12-31] MEDS: Jevity 1.5. 1,000 ML Bottle 240 ML GT ×5 (06:21→20:48)
--- NOTE | 2020-12-31 06:37 | NURSING ---
Pt belligerent this a.m with staff and resistant to care. Staff needed to hold pt's hands away from PEG during med/Jevity admin. Pt cursed during intermediate card tender and struggled with staff, telling staff to Let go of his expletive hands! pt repeated the same statement over and over despite staff raising awareness of pt's behavior.
[2020-12-31 07:20] VITALS: BP 110/63; PULSE 91; RESP 18; TEMP 36.8; O2SAT 89
[2020-12-31] MEDS: Sertraline 50 MG Tablet GT (08:34)
[2020-12-31] MEDS: Thiamine Hydrochloride 100 MG Tablet GT (08:34)
[2020-12-31] MEDS: Folic Acid 1 MG Tablet GT (08:34)
[2020-12-31] MEDS: Divalproex Sodium 250 MG Tablet PO ×2 (08:34→16:59)
[2020-12-31] MEDS: Cefdinir Susp 125 MG/5 ML PO.SYRINGE 300 MG GT ×2 (08:34→22:09)
[2020-12-31] MEDS: amLODIPine 5 MG Tablet GT (08:34)
[2020-12-31] MEDS: Menthol/Lanolin/Calamine/Znox 113 GM Tube 1 APPLIC TOPICAL ×2 (08:44→20:49)
--- NOTE | 2020-12-31 11:37 | PCM.PN.BLA ---
Progress Note Remains afebrile Heart rate has ranged from 78-91 over the past 22 hours. The blood pressure is better today at 110/63. He is maintaining an oxygen saturation of 89 to 91% on room air. He is not tachypneic. All lab from yesterday was personally reviewed last evening. Weight is stable. The EEG report is pending. It should be back sometime today. He is still agitated at times but, not requiring any additional Sedation now. Physical Exam Const Constitutional Narrative: intermittently drowsy and awake......alert only when he is doing therapy. General Appearance: ill appearing Resp Resp Narrative: Decreased BS's in the left base with a few crackles. Not tachypneic at rest and no accessory muscle use. He denies SOB. He is not coughing. Cardio no murmurs and no gallops Cardio Narrative: Irregular rhythm with controlled ventricular response GI normal to inspection, nondistended, normoactive bowel sounds, soft to palpation and non-tender GI Narrative: The sutures were removed yesterday. The irritation that was around the sutures is resolving. No DC and no increased warmth to touch. Extremity no pedal edema Assessment & Plan Assessment/Plan (1) Delirium: (2) Hospital-acquired pneumonia: (3) Dysphagia: (4) Closed TBI (traumatic brain injury): (5) Hypoxemia: (6) Intracranial hemorrhage following injury: PLAN: 1. Delirium is coming under better control with Seroquel 100 mg every 8 hours, as needed Roxanol for suspected pain with inability to verbalize this and addition of Depakote yesterday for mood stabilization. He is requiring no as needed antipsychotics at this time. He is less agitated known better able to do therapy. 2. Continue the current drug regimen 3. Finish out 14 days of antibiotics for suspected empyema left base 4. Await the results of the EEG to rule out nonconvulsive seizures as etiology of his variability in mood and participation. 5. Continue therapy - 6. We should be hearing from [facility] soon. If he is not accepted will need a name of a SNF from his dtr because his DC date is Tuesday. Visit Charges Inpatient E&M: 34369 Subs Hosp L2
--- NOTE | 2020-12-31 13:15 | NURSING ---
pt refused to let this nurse administer 1200 tube feeding and medication.
[2020-12-31 14:03] VITALS: BP 108/70; PULSE 81
--- NOTE | 2020-12-31 15:47 | CASEMGMT ---
Social Work Followed up with [facility] - they can medically accept pt, but awaiting outcome on insurance coverage as it will be a lateral transfer. Updated dtr and prepared her to have plan B. Will await call from [facility]. Hayde Bansal, RAYA CASTILLOW
--- NOTE | 2020-12-31 18:46 | NURSING ---
pts daughter called staff to help pt to the restroom this nurse and video intern assisted pt to BSC. The pt became belligerent with staff, refused to have attends pulled up and threw himself into bed. Staff tried to reason with pt to get him situated in bed properly with little affect. pt's daughter is in room with pt at this time. will attempt to reposition pt after he calms down.
[2020-12-31 19:45] VITALS: PULSE 81; RESP 18; O2SAT 87
[2020-12-31 19:58] VITALS: BP 108/70; PULSE 81; RESP 18; TEMP 36.4; O2SAT 87
--- NOTE | 2020-12-31 20:16 | NURSING ---
clinical findings completed and pt is restless and reports that his that his back is hurting. pt is sitting up in his bed rocking back and forth and repeating come on, come on . pt reports that his back is hurting and roxanol given as per order. staff attempts oral care with some success and wash pt face. pt tongue is coated white. pt states that he is tired but unable to relax and go to sleep. staff in room currently for safety
[2020-12-31 20:47] VITALS: BP 95/63; PULSE 74
[2021-01-01] MEDS: guaiFENesin 10 ML UDC (200MG/10ML) GT ×4 (00:34→17:46)
--- NOTE | 2021-01-01 02:13 | NURSING ---
REVIEWED AND AGREE WITH SENIOR IT SPECIALIST NOTE AND ASSESSMENT.
--- NOTE | 2021-01-01 02:41 | NURSING ---
pt awake and was changed for incontinence of urine. pt remarked to staff about how big his penis is and how we like looking at it. staff explained that we see alot of men and they are all the same. pt offered oral care with swab and refused. pt was encouraged to go back to sleep and it was 0230 in the morning staff left in the room and pt started yelling out that he needed to get his clothes on and go home. staff explained that he needed to sleep and we would get dressed later. staff then left room. pt continues to yell out that he wants go home
[2021-01-01] MEDS: morphine (oral solution) 10MG/0.5ML Syringe 5 MG SL (03:05)
--- NOTE | 2021-01-01 04:28 | NURSING ---
0330 pt continues to yell out for staff to come in the room. staff to see what pt wanted and pt states that he needs to talk to cristian and get home. staff reminded pt that it was 0330 in the morning and try to sleep. pt is becoming restless and sitting up in the bed, pt medicated for back pain. 0400 pt is quiet but is shaking the bed rail. staff to check on pt and pt stated that he would go to sleep if he had some soup. pt reminded that he could have nothing by mouth and refused oral care when offered at this time
[2021-01-01] MEDS: Jevity 1.5. 1,000 ML Bottle 240 ML GT ×6 (06:15→20:51)
[2021-01-01 06:16] VITALS: BP 111/74; PULSE 82
[2021-01-01] MEDS: Enoxaparin 40 MG/0.4 ML Syringe SC (06:16)
[2021-01-01] MEDS: Metoprolol Tartrate 25 MG Tablet GT ×3 (06:16→20:50)
[2021-01-01] MEDS: QUEtiapine 100 MG Tablet GT ×3 (06:16→20:53)
--- NOTE | 2021-01-01 06:40 | NURSING ---
0600 staff into room to start giving medications and adls. pt was cooperative for this and when staff asked what pt wanted to wear today pt stated what i have on, staff asked pt if he would like to wash his face and hands pt replied no. what ever staff suggested pt refused including zahida-care, pt agitation was increasing . pt returned to sleep and rn made aware of pt refusal of care
[2021-01-01 07:20] VITALS: BP 111/74; PULSE 82; RESP 18; TEMP 36.6; O2SAT 87
[2021-01-01] MEDS: Cefdinir Susp 125 MG/5 ML PO.SYRINGE 300 MG GT ×2 (09:49→20:52)
[2021-01-01] MEDS: Thiamine Hydrochloride 100 MG Tablet GT (09:50)
[2021-01-01] MEDS: Sertraline 50 MG Tablet GT (09:50)
[2021-01-01] MEDS: amLODIPine 5 MG Tablet GT (09:50)
[2021-01-01] MEDS: Divalproex Sodium 250 MG Tablet PO ×2 (09:52→17:46)
[2021-01-01] MEDS: Menthol/Lanolin/Calamine/Znox 113 GM Tube 1 APPLIC TOPICAL ×2 (09:58→20:51)
--- NOTE | 2021-01-01 10:57 | CASEMGMT ---
Addendum entered by Hayde Bansal 01/02/21 14:19: Spoke with dtr and Sunni at [facility] that confirmed pt is accepted at [facility] for one week under Medicare. Sent requested updated clinicals. Planning for DC 01/06. Dtr requesting to schedule transportation - reiterated unable to guarantee insurance to cover 100% or any portion of transport - dtr expressed understanding. IDT notified. Physicians cot transport on WILL CALL. Plan: DC 01/06 to [facility] Addendum entered by Hayde Bansal 01/02/21 10:42: CC denied. Followed up with physician. Discussed a possible behavioral health unit. Contacted [facility] - they ran his Medicare benefits and he has coverage. Clinical information sent. Then an equipment planner will contact this worker and the dr will give final acceptance/denial. Spoke with dtr - dtr agreeable to [facility] if [facility] cannot accept. She is meeting with the Dr at [facility] and will notify this worker of outcome. Will continue to follow. Addendum entered by Hayde Bansal 01/02/21 09:27: [facility] denied. [facility], [place], [facility], [facility] has no beds available. [facility], [facility] and [facility] are reviewing. Spoke with dtr and provided update. Dtr is actively walking into [facility] to speak with their admissions team. Dtr to provide update to this worker. Will continue to follow. Addendum entered by Hayde Bansal 01/01/21 16:36: Received call from Sunni at [facility] - she assured this worker her team is looking into Medicare coverage for pt but still unsure about guarantee of payment. Stressed that pt/dtr cannot pay privately, and needs confirmation of coverage before admitting. Discussed Medicare guidelines and billing for IRUs and dx pt is admitted on this unit vs dx to be admitted at [facility]. Also stressed confirmation needs to be given for DC 01/06 for pt to admit or he cannot transfer - Sunni expressed understanding and will contact this worker with answers. Spoke to dtr to provide update. Encouraged to continue having plan B in place because if [facility] cannot provide guarantee, pt still needs discahrged on 01/04 - both SNFs have denied. Dtr instructed this worker to refer to the following SNFs: Referred to [place] - denied. Referred to [facility], [facility] - all reviewing. [facility] does not have bed availability. Will continue to follow. Addendum entered by Hayde Bansal 01/01/21 13:49: [address] denied. Original Note: Social Work Followed up with [facility] - getting conflicting information from three different staff members in the admissions department - speaking to Zack Sharif and Sunni. Zack informed this worker 12/31 that medically approved patient to admit, however, Sunni is waiting on confirmation to see if Medicare will cover patient's stay as it is a lateral transfer and will contact this worker with the outcome. Chante told this worker today that since the approved the patient following Medicare guidelines, then Medicare will cover the stay. JUAN ANTONIO explained to Chante that the dtr needs official confirmation that Medicare is going to cover the stay because she is unable to pay privately, and we are looking to transfer today, if possible, but no later than 01/04. Chante and Zack conversed and there is not a bed available until 01/06. Questioned the bed availability as when the referral was made 12/29, Chante acknowledged the patient is to DC moraima and told this worker there is beds available, they were just waiting on medical approved from the Dr. Chante reiterated during conversation today that pt could not admit until 01/06. Explained this worker still would like a return call with financial coverage and will determine if pt can wait to transfer until 01/06. Chante expressed understanding. Contacted dtr and explained above information. Encouraged dtr to consider plan B. Dtr requested referrals to [facility] and [facility]. Referrals made. Will notify dtr if pt is able to DC 01/06 instead of 10 to [facility] if covered. Spoke with IRU Director and explained above - Director provided approval that if [facility] can provide confirmation pt can DC 01/06, pt can remain in IRU until then. Will continue to follow. Plan: awaiting approval from [facility] that Medicare will cover stay, awaiting acceptance/denial from [facility] and [facility] as plan B Hayde Bansal, RYAA VAZQUEZ
[2021-01-01] MEDS: Folic Acid 1 MG Tablet GT (12:09)
[2021-01-01 14:58] VITALS: BP 108/70; PULSE 78
--- NOTE | 2021-01-01 15:55 | NURSING ---
Suture removed from peg. pt tolerated well.
[2021-01-01 19:30] VITALS: BP 119/66; PULSE 78; RESP 18; TEMP 36.8; O2SAT 89
[2021-01-01 20:50] VITALS: BP 108/69; PULSE 77
[2021-01-01 21:00] VITALS: BP 108/69; PULSE 77; O2SAT 88
[2021-01-02] MEDS: guaiFENesin 10 ML UDC (200MG/10ML) GT ×4 (00:02→17:22)
--- NOTE | 2021-01-02 00:09 | NURSING ---
Addendum entered by Keri Bullard 01/02/21 00:45: at 2330 when pt was agitated pt was noted to be sob and stated that his chest was hurting with audible wheezes noted , when staff got pt to lay down in the bed 02 at 2l/m was placed on pt and pt left on for approx 3mins and took stating that he was done with it Addendum entered by Keri Bullard 01/02/21 00:27: 2330 bed alarm going off and pt was found at the foot of the bed trying to get to the bsc. staff tried to assist pt and pt became agitated and swing his arms telling staff to get away and leave the room. staff explained that d/t his condition he was not steady enough to go the bsc on his own and staff would help him. pt started swearing and shaking his fists telling them to shut and leave him alone. staff assisted pt to the bsc and remove his attends. pt less agitated but still wanted staff to leave the room. pt sat on the bsc for a few minutes and then moved over to the bed while staff was trying to clean up his bottom and place his attends. after three attempts pt was cleansed and attends was in place. pt assisted staff in getting higher in the bed , then laid down. pt positioned in the bed for comfort and pt covered and encouraged to sleep, fall strategies in place. Original Note: pt cooperative with care and changing bed linens this hs for incontinence of urine. staff completed hs care and pt also completed oral care with assistance. pt noted to closing eyes and yawning and at 2100 hs medications were given. by 0 pt was resting quietly with non-labored respirations
--- NOTE | 2021-01-02 00:35 | NURSING ---
0000 bed alarm going off in and pt was sitting up in the bed, wanting his top put back on (referring to his gown) staff assisted in placing gown back on and continued to encourage pt to get some rest, pt laid back down and covered back up. daughter called and was updated by rn . 0015 bed alarm noted to be going off and pt was sitting up in the bed with his gown off , agitation still noted but less at this point , pt cooperative with staff, and laid back down with gown off and blanket and sheet on. roxanol given as per order 0045 staff in room for safety and pt is dosing off and on at this point , respirations are non-labored. pt speech becomes more slurred when he is tired and difficult to understand.
[2021-01-02 01:30] VITALS: BP 113/72; PULSE 107; RESP 24; O2SAT 91
--- NOTE | 2021-01-02 02:11 | NURSING ---
0100 pt remains restless sitting up in the bed and then laying back down. pt stated that he wanted a shower staff got items ready and then pt changed his mind. pt then was ambulated in the kay 20ft and pt became sob and sat down in the w/c. pt wheeled around the unit then returned to the room. staff to change for urinary incontinence and pt then voided o the bed. pt continues to sit up in the bed while staff attempted to change bed linens. pt became agitated and after explaining the his bed needed to be changed pt cooperated with staff. 0130 pt continues to sit up in the bed and respirations are noted to slightly labored sp02 was checked and was noted to be 84% on ra. pt was encouraged to put some 02 on d/t increased confusion. pt reports that his heart is hurting and rn was called to assess pt at this time . rn finally convinced pt to leave 02 on then was repositioned for comfort in the bed, rn reports that pt has rhonci in anterior upper cobian with posterior cobian diminished. tv put on as a distraction. vs were bp 113/72, ap 107, resp 24, and sp02 91% @3/lm [id number] pt resting in the bed and removed the oxygen stating that he would put it on later. pt content at this time watching tv
[2021-01-02] MEDS: morphine (oral solution) 10MG/0.5ML Syringe 5 MG SL ×3 (05:30→12:56)
[2021-01-02] MEDS: Enoxaparin 40 MG/0.4 ML Syringe SC (05:52)
[2021-01-02 05:53] VITALS: BP 111/75; PULSE 104
[2021-01-02] MEDS: Metoprolol Tartrate 25 MG Tablet GT ×3 (05:53→21:50)
[2021-01-02] MEDS: QUEtiapine 100 MG Tablet GT ×3 (05:53→21:49)
[2021-01-02] MEDS: Jevity 1.5. 1,000 ML Bottle 240 ML GT ×6 (05:54→21:52)
[2021-01-02 08:09] VITALS: BP 111/74; PULSE 104; RESP 20; TEMP 36.8; O2SAT 89
[2021-01-02] MEDS: amLODIPine 5 MG Tablet GT (09:20)
[2021-01-02] MEDS: Thiamine Hydrochloride 100 MG Tablet GT (09:20)
[2021-01-02] MEDS: Folic Acid 1 MG Tablet GT (09:20)
[2021-01-02] MEDS: Divalproex Sodium 250 MG Tablet PO ×2 (09:20→17:23)
[2021-01-02] MEDS: Sertraline 50 MG Tablet GT (09:20)
[2021-01-02] MEDS: Cefdinir Susp 125 MG/5 ML PO.SYRINGE 300 MG GT ×2 (09:23→21:51)
[2021-01-02] MEDS: Menthol/Lanolin/Calamine/Znox 113 GM Tube 1 APPLIC TOPICAL ×2 (09:40→21:52)
--- NOTE | 2021-01-02 11:48 | PN_ITS ---
Progress Note Afebrile VSS-the mean arterial pressure is consistently in the 80s now. The heart rate is occasionally in the 100-110 range but no higher. I suspect it goes up with his agitation. He is maintaining an oxygen saturation of 88 to 91% on room air and he will not wear the oxygen. Discussed with nursing - He is cussing at the staff, refusing therapy except ST and I believe he thinks they are just there to talk with him. He has pulled the trach out. He refuses oxygen. He broke the cervical collar trying to get it off and his dtr told us not to apply another collar, he knows when he has to urinate but urinates in the Depends. He throws himself in bed and will not let staff clean him up after a BM. He attempts to throw himself out of bed. He is now attempting to pull the PEG out. Will not try swallowing exercises. He is perseverating and once you say something to him he keeps repeating it over and over. He demands to go home and when I explain that he is not able to take care of himself yet and needs more therapy to learn how to do this again he swears at me and tells me to get out. Reviewed the PT/OT/ST notes - He has not done 3 hours of therapy for several days because he refuses to get out of bed and yells at the therapists to get out Medication list reviewed. Physical Exam Const Constitutional Narrative: He is awake and oriented only to person. He is lying flat in bed with no respiratory distress. HE is trying to get out of bed to fold the laundry. When I reorient him 2 minutes later he still can not tell me where he is or why he is here. General Appearance: uncooperative and combative Orientation / Consciousness: awake and oriented to person Exam Limitations: altered mental status and behavioral limitations Eyes PERRL, EOMs intact bilaterally, conjunctivae normal and no scleral icterus Neck Neck Narrative: The trach site is closing. There is no erythema and no purulent DC. There is no cervical adenopathy General: trachea midline Chest Chest: symmetrical chest wall rise Resp normal respiratory effort and no use of accessory muscles Resp Narrative: Diminished BS's throughout but, felix in the Left base. Will not cooperate with taking a deep breath. Few crackles in the base of the left lung posteriorly. No wheezing. Cardio Cardio Narrative: irreg, irregular rhythm. HR ranging from 95-107 since the Lopressor was changed from QID to TID. Systolic BP is now consistently from 100-110 with discontinuation of the Amlodipine. GI normal to inspection, nondistended, normoactive bowel sounds and soft to palpation GI Narrative: no guarding with palpation. The PEG site has no significant erythema and no purulent DC. The binder is in place to keep him from pulling the PEG out. Extremity no pedal edema Skin General Skin Exam: no breakdown Rashes: no rashes Neuro CN's II-XII intact bilaterally and moves all extremities Neuro Narrative: oriented X 1 only, agitated despite Seroquel. He is also receiving PRN Roxanol for pain. He is on Depakote to tray and stabilize his moods. He is also on an SSRI which was started on 12/30. Assessment & Plan Assessment/Plan (1) Delirium: (2) Hospital-acquired pneumonia: (3) Agitation: (4) Dysphagia: (5) Closed TBI (traumatic brain injury): (6) Intracranial hemorrhage following injury: (7) SAH (subarachnoid hemorrhage): (8) SDH (subdural hematoma): (9) History of ETOH abuse: PLAN: 1. change the Seroquel to 100 mg q 6H 2. He was accepted at [facility] and can be transferred on Tuesday. 3. Continue Cedinir 4. Recheck CBC with differential, ESR, CRP and a BMP on Tuesday Visit Charges Inpatient E&M: 81354 Subs Hosp L3
[2021-01-02 14:49] VITALS: BP 106/75; PULSE 97
--- NOTE | 2021-01-02 16:10 | NS ---
If Jevity 1.5 not available d/t product shortages, recommend Vital AF 1.2- 300mL bolus 6x/day w/50mL H2O flush before and after each bolus to provide 2160 calories, 135 g protein, and 2060mL fluid/day. As substituted, Vital AF 1.2 will meet 100% of estimated protein/calorie needs. Please call clinical RDN w/ questions at [phone]. Eliecer Villafana MS, RDN, LD
[2021-01-02 19:42] VITALS: BP 106/75; PULSE 99; RESP 18; TEMP 36.6; O2SAT 89
[2021-01-02 21:50] VITALS: BP 106/75; PULSE 99
[2021-01-02] MEDS: Senna/Docusate Sodium 1 Tablet 2 TABLET GT (21:50)
[2021-01-03] MEDS: guaiFENesin 10 ML UDC (200MG/10ML) GT ×5 (00:05→23:07)
[2021-01-03] MEDS: QUEtiapine 100 MG Tablet GT ×4 (04:40→23:07)
[2021-01-03 04:41] VITALS: BP 109/73; PULSE 97
[2021-01-03] MEDS: Enoxaparin 40 MG/0.4 ML Syringe SC (04:41)
[2021-01-03] MEDS: Metoprolol Tartrate 25 MG Tablet GT ×3 (04:41→21:55)
[2021-01-03] MEDS: Jevity 1.5. 1,000 ML Bottle 240 ML GT ×6 (04:42→21:34)
[2021-01-03 07:42] VITALS: BP 109/73; PULSE 106; RESP 16; TEMP 36.6; O2SAT 89
[2021-01-03] MEDS: Thiamine Hydrochloride 100 MG Tablet GT (09:21)
[2021-01-03] MEDS: Folic Acid 1 MG Tablet GT (09:21)
[2021-01-03] MEDS: Sertraline 50 MG Tablet GT (09:24)
[2021-01-03] MEDS: morphine (oral solution) 10MG/0.5ML Syringe 5 MG SL (09:37)
[2021-01-03] MEDS: Menthol/Lanolin/Calamine/Znox 113 GM Tube 1 APPLIC TOPICAL ×2 (09:41→21:52)
[2021-01-03] MEDS: Cefdinir Susp 125 MG/5 ML PO.SYRINGE 300 MG GT ×2 (10:35→21:36)
[2021-01-03] MEDS: LORazepam 2 MG/ML Syringe IM (11:40)
[2021-01-03 12:06] LABS: Mucous, Urine 0 SEEN /hpf (<or=2+); Red Blood Cells-Urine 0 SEEN /hpf (0-5); Squamous Epithelial Cells - UA 0 SEEN /hpf (0-5); White Blood Cells 0 SEEN /hpf (0-5)
[2021-01-03 12:42] LABS: Color, Urine Yellow (Yellow); Glucose, Dipstick Normal (Normal); Ketone-Dipstick Negative (Negative); Leukocyte Esterase-Dipstick Negative /ul (Negative); Nitrite-Dipstick Negative (Negative); Occult Blood-Urine Negative /ul (Negative); Protein-Dipstick Negative (Negative); Urine Bilirubin Dipstick Negative (Negative); Urine Clarity Sl. Cloudy (Clear); Urine Urobilinogen Normal (Normal)
[2021-01-03 12:50] LABS: Amorphous Sediment 1+; Bacteria 1+ /hpf (None Seen)
[2021-01-03 13:57] VITALS: BP 104/58; PULSE 80
[2021-01-03] MEDS: Valproic Acid 250 MG/5 ML UDC 125 MG GT ×3 (13:57→21:47)
[2021-01-03 19:54] VITALS: BP 104/74; PULSE 98; RESP 16; TEMP 36.7; O2SAT 88
[2021-01-03 20:38] VITALS: PULSE 89; RESP 17
[2021-01-03] MEDS: Senna/Docusate Sodium 1 Tablet 2 TABLET GT (21:47)
[2021-01-03 21:55] VITALS: BP 113/79; PULSE 86
--- NOTE | 2021-01-03 23:15 | NURSING ---
Pt uncooperative with staff trying to perform oral care this hs. Pt clamped mouth down on swab and turned head away from staff. Pt removed swab and told staff he was done with that. While administering PEG meds and Jevity, pt also grabbed at tubing several times. Staff attempted redirecting attention from PEG with conversation but pt was not conversant. After family medicine physician, staff adjusted pt and made pt comfortable in bed. Pt settled down and bed was lowered for safety of pt. O2 tube was replaced in nares but pt has already removed O2 before staff leaves the room. SpO2 was 88% on room air.
[2021-01-04] MEDS: morphine (oral solution) 10MG/0.5ML Syringe 5 MG SL ×2 (03:42→17:34)
--- NOTE | 2021-01-04 03:45 | NURSING ---
pt belligerent with staff while changing pt d/t incontinence. Pt cursing at staff and telling them to get him out of here. Pt can be heard at nurses station yelling out. Pt not diverted with conversation topics recommended by dtr. Roxanol given and then Ativan, when reasonable attempts were made to get pt to be considerate of other pts trying to sleep.
[2021-01-04] MEDS: LORazepam 2 MG/ML Syringe IM ×2 (03:56→21:28)
[2021-01-04] MEDS: QUEtiapine 100 MG Tablet GT ×4 (06:30→23:23)
[2021-01-04] MEDS: Enoxaparin 40 MG/0.4 ML Syringe SC (06:30)
[2021-01-04 06:35] VITALS: BP 121/79; PULSE 104
[2021-01-04] MEDS: Metoprolol Tartrate 25 MG Tablet GT ×3 (06:35→21:35)
[2021-01-04] MEDS: Jevity 1.5. 1,000 ML Bottle 240 ML GT ×6 (06:35→21:34)
[2021-01-04] MEDS: guaiFENesin 10 ML UDC (200MG/10ML) GT ×4 (06:48→23:23)
[2021-01-04 09:06] VITALS: BP 106/59; PULSE 90; RESP 16; TEMP 36.7; O2SAT 89
[2021-01-04] MEDS: Cefdinir Susp 125 MG/5 ML PO.SYRINGE 300 MG GT ×2 (09:46→21:20)
[2021-01-04] MEDS: Valproic Acid 250 MG/5 ML UDC 125 MG GT ×4 (09:47→21:17)
[2021-01-04] MEDS: Thiamine Hydrochloride 100 MG Tablet GT (09:48)
[2021-01-04] MEDS: Sertraline 50 MG Tablet GT (09:48)
[2021-01-04] MEDS: Senna/Docusate Sodium 1 Tablet 2 TABLET GT ×2 (09:48→21:36)
[2021-01-04] MEDS: Folic Acid 1 MG Tablet GT (09:49)
[2021-01-04] MEDS: Menthol/Lanolin/Calamine/Znox 113 GM Tube 1 APPLIC TOPICAL ×2 (10:03→21:35)
[2021-01-04 13:03] VITALS: PULSE 89
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
[2021-01-04 19:42] VITALS: BP 128/62; PULSE 70; RESP 16; TEMP 36.6; O2SAT 99
[2021-01-04 21:35] VITALS: BP 111/77; PULSE 105
[2021-01-04] MEDS: MELATONIN 3 MG TABLET PO (21:52)
--- NOTE | 2021-01-04 21:57 | NURSING ---
Pt very agitated with staff during hs care. Pt ordering staff to leave him alone and using fowl language, despite staff explaining that staff is cleaning pt up for hs and making sure good skin integrity is in place. Staff attempting to redirect pt but pt remains gruff. Ativan given as prescribed. Pt care completed, O2 applied but pt removes immediately and refuses use. SpO2 @ 90& ra. Pt reclining in bed at this time and staff monitoring status.
[2021-01-04 22:00] VITALS: PULSE 98; RESP 18
[2021-01-05] MEDS: LORazepam 2 MG/ML Syringe IM (04:39)
[2021-01-05] MEDS: Enoxaparin 40 MG/0.4 ML Syringe SC (05:02)
[2021-01-05] MEDS: QUEtiapine 100 MG Tablet GT ×2 (05:02→11:54)
[2021-01-05] MEDS: guaiFENesin 10 ML UDC (200MG/10ML) GT ×2 (05:02→12:04)
[2021-01-05 05:03] VITALS: BP 117/86; PULSE 98
[2021-01-05] MEDS: Jevity 1.5. 1,000 ML Bottle 240 ML GT ×3 (05:03→11:55)
[2021-01-05] MEDS: Metoprolol Tartrate 25 MG Tablet GT (05:03)
--- NOTE | 2021-01-05 05:58 | NURSING ---
staff struggled getting pt to cooperate with dressing for a.m. ADLs. Pt repeatedly told staff to leave him alone. Pt found incontinent and required care but pt resisted care and complained loudly. Pt becoming more agitated when needing access to PEG and assistance needed to admin meds without dislodging PEG. Staff asked pt to give staff a few minutes of time to clean up skin for good skin integrity. Pt stated he did not care what time it was, he was going to go find the papers. When asked if he meant newspapers possibly, trying to understand what pt meant? Pt stated he didn't say that. Pt was not appeased by diversional methods and Ativan prn given when pt also insisted on throwing legs over side of bed and repeatedly stated, Come on! Pt is strong and extrusion engineer tightly to staff arm when staff attempts to provide care.
[2021-01-05 07:27] VITALS: BP 117/86; PULSE 101; RESP 18; TEMP 36.3; O2SAT 89
[2021-01-05] MEDS: Valproic Acid 250 MG/5 ML UDC 125 MG GT (08:55)
[2021-01-05] MEDS: Thiamine Hydrochloride 100 MG Tablet GT (08:55)
[2021-01-05] MEDS: Folic Acid 1 MG Tablet GT (08:55)
[2021-01-05] MEDS: Sertraline 50 MG Tablet GT (08:55)
[2021-01-05] MEDS: Senna/Docusate Sodium 1 Tablet 2 TABLET GT (08:55)
[2021-01-05] MEDS: Cefdinir Susp 125 MG/5 ML PO.SYRINGE 300 MG GT (08:56)
[2021-01-05] MEDS: Menthol/Lanolin/Calamine/Znox 113 GM Tube 1 APPLIC TOPICAL (09:08)
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
--- NOTE | 2021-01-05 09:48 | CASEMGMT ---
Social Work Received call from Sunni at [facility] that they have a bed available for pt to tx today. Spoke with dtr whom is agreeable. Dtr requested resource lists for SNFs in different counties and open to counseling resources - provided all lists in pt's room. Dtr appreciative. Spoke with and can DEE today. Ordered PCR COVID test, per request - sent updated clinicals. Contacted [facility] to set transport time - 11:30 am as long as COVID test results are in. Plan: DC to [facility] 01/05 RAYA Julian
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
[2021-01-05 10:13] VITALS: BP 117/86; PULSE 101; RESP 18; TEMP 36.3; O2SAT 89
--- NOTE | 2021-01-05 13:56 | NURSING ---
Discharged to [facility] physicians ambulance. report call to Kailyn.
== END 2021-01-05 13:57 | DRG 559 ==
PROVIDERS: Internal Medicine Critical Care Medicine; Admitting Provider Internal Medicine; PCP Family Medicine; Visit Provider Internal Medicine
DX: S22.42XD Multiple fractures of ribs, left side, subsequent encounter for fracture with routine healing (principal); E43 Unspecified severe protein-calorie malnutrition; J18.9 Pneumonia, unspecified organism; G93.41 Metabolic encephalopathy; J96.21 Acute and chronic respiratory failure with hypoxia; I48.19 Other persistent atrial fibrillation; I48.3 Typical atrial flutter; J44.0 Chronic obstructive pulmonary disease with (acute) lower respiratory infection; S32.018D Other fracture of first lumbar vertebra, subsequent encounter for fracture with routine healing; S32.028D Other fracture of second lumbar vertebra, subsequent encounter for fracture with routine healing; S32.048D Other fracture of fourth lumbar vertebra, subsequent encounter for fracture with routine healing; S32.038D Other fracture of third lumbar vertebra, subsequent encounter for fracture with routine healing; S32.058D Other fracture of fifth lumbar vertebra, subsequent encounter for fracture with routine healing; S12.490D Other displaced fracture of fifth cervical vertebra, subsequent encounter for fracture with routine healing; S12.590D Other displaced fracture of sixth cervical vertebra, subsequent encounter for fracture with routine healing; S12.690D Other displaced fracture of seventh cervical vertebra, subsequent encounter for fracture with routine healing; S06.6X9D Traumatic subarachnoid hemorrhage with loss of consciousness of unspecified duration, subsequent encounter; S06.5X9D Traumatic subdural hemorrhage with loss of consciousness of unspecified duration, subsequent encounter; V29.9XXD Motorcycle rider (driver) (passenger) injured in unspecified traffic accident, subsequent encounter; I25.10 Atherosclerotic heart disease of native coronary artery without angina pectoris; I10 Essential (primary) hypertension; F17.210 Nicotine dependence, cigarettes, uncomplicated; E78.5 Hyperlipidemia, unspecified; F10.10 Alcohol abuse, uncomplicated; R32 Unspecified urinary incontinence; R15.9 Full incontinence of feces; L89.311 Pressure ulcer of right buttock, stage 1; Z90.5 Acquired absence of kidney; Z79.899 Other long term (current) drug therapy; Z93.0 Tracheostomy status; Z93.1 Gastrostomy status; Z68.24 Body mass index [BMI] 24.0-24.9, adult; Y95 Nosocomial condition; D50.0 Iron deficiency anemia secondary to blood loss (chronic)
CPT/HCPCS: 31720; 36415; 36600; 70486; 71045; 71046; 71250; 80053; 80202; 81001; 82803; 83735; 84100; 84443; 85025; 85027; 85652; 86140; 87070; 87077; 87186; 87205; 87635; 87641; 92507; 92523; 92526; 92610; 93005; 94640; 95819; 97110; 97112; 97116; 97140; 97162; 97167; 97530; 97535; 97802; 97803; 99251; J7040; J7050; U0005; A4216; G0463; J7799; U0003